=== PATIENT | female | born 1965 | race Caucasian/White ===

== ENCOUNTER 2022-01-09 08:39 | Outpatient (REF) | payer OTHER, MEDICARE, SELFPAY ==
--- NOTE | 2022-01-09 08:50 | ECG_ITS ---
Test Reason : R/O CONDUCTION DELAY Blood Pressure : / mmHG Vent. Rate : 085 BPM Atrial Rate : 085 BPM P-R Int : 166 ms QRS Dur : 080 ms QT Int : 382 ms P-R-T Axes : 034 007 042 degrees QTc Int : 454 ms Normal sinus rhythm Nonspecific ST and T wave abnormality Abnormal ECG When compared with ECG of 31-MAY-2019 10:22, Nonspecific T wave abnormality, worse in Anterior leads Referred By: Andre Burk Electronically Signed By:VICKY COBIAN MD
[2022-01-09 09:07] LABS: MANUAL DIFF FLAG NO
[2022-01-09 09:31] LABS: Basophils Absolute Auto 0.1 X10*3/uL (0.0-0.2); Basophils Percent Auto 0.9 % (0-2); Eosinophils Absolute Auto 0.4 X10*3/uL (0.0-0.4); Eosinophils Percent Auto 3.2 % (0-4); Hematocrit 41.5 % (37.0-47.0); Imm Gran Abs Auto 0.14 X10*3/uL (0.00-0.03); Imm Gran Pct Auto 1.3 % (0.0-0.4); Lymphocytes Absolute Auto 3.8 X10*3/uL (1.2-4.9); Lymphocytes Percent Auto 33.8 % (20-40); Mean Corpuscular HGB Conc 33.7 g/dl (31.0-35.0); Mean Corpuscular Hemoglobin 31.1 pg (27.0-33.0); Mean Corpuscular Volume 92.2 fL (80.0-98.0); Mean Platelet Volume 10.7 fL (9.4-12.3); Monocytes Absolute Auto 0.8 X10*3/uL (0.1-1.2); Monocytes Percent Auto 7.4 % (2-11); Neutrophils Absolute Auto 5.9 x10*3/uL (2.0-8.3); Neutrophils Percent Auto 53.4 % (45-73); Platelet Count 295 X10*3/uL (160-400); Red Cell Distribution Width 12.9 % (11.0-16.0); White Blood Count 11.1 X10*3/uL (4.8-10.8)
[2022-01-09 09:38] LABS: Estimated Average Glucose 108 mg/dL; Hemoglobin A1c % 5.4 %
[2022-01-09 10:11] LABS: Alanine Aminotransferase 47 U/L (0-31); Alkaline Phosphatase 91 U/L (39-117); Anion Gap 12 (12-20); Aspartate Amino Transferase 34 U/L (5-31); Bilirubin Total 0.3 mg/dL (0.0-1.0); Blood Urea Nitrogen 15 mg/dL (9-16); Calcium 9.3 mg/dL (8.4-10.2); Carbon Dioxide 24 mmol/L (22-29); Chloride 108 mmol/L (96-108); Estimated Glomerular Filt Rate 51; Glucose Random 117 mg/dL (60-115); Potassium 3.8 mmol/L (3.3-5.1); Sodium 140 mmol/L (135-145); Total Protein 7.6 g/dL (6.5-8.0)
[2022-01-09 12:19] LABS: Ammonia 45 umol/L (13-55)
[2022-01-09 13:15] LABS: Appearance Urine CLEAR; Color Urine YELLOW; Glucose Urine UA NEG (NEG); Leukocyte Esterase Urine TRACE (NEG); Nitrite Urine NEG (NEG); Specific Gravity - Urine <= 1.005 (1.005-1.025); Urine Blood NEG (NEG); Urine Ketones NEG (NEG); Urine Protein NEG (NEG-TRACE)
[2022-01-09 13:29] LABS: Bacteria Urine 2+ /LPF; RBC Urine 0 /HPF (0); Squamous Epithelial Cell Urine 2+ /LPF
[2022-01-14 04:29] LABS: Topiramate 16.7 mcg/mL (see note)
[2022-01-14 17:06] LABS: Clozapine (Clozaril) 611 mcg/L; Norclozapine 232 mcg/L (25-400)
== END 2022-01-09 08:40 | disposition home or self-care (01) ==
LOC: HO.LAB 08:39
PROVIDERS: Visit Provider Psychiatry & Neurology Psychiatry
DX: F31.81 Bipolar II disorder (principal); Z79.899 Other long term (current) drug therapy
CPT/HCPCS: 36415; 80053; 80159; 80201; 81001; 81003; 82140; 83036; 85025; 93005

== ENCOUNTER → 2022-08-11 16:37 | Outpatient (BNVA) | payer OTHER, MEDICARE, SELFPAY | PROVIDERS: PCP Pediatrics Adolescent Medicine; Visit Provider Psychiatry & Neurology Psychiatry | DX: Z13.89 Encounter for screening for other disorder (principal) ==

== ENCOUNTER → 2022-09-09 16:29 | Outpatient (BNVA) | payer OTHER, MEDICARE, SELFPAY | PROVIDERS: PCP Pediatrics Adolescent Medicine; Visit Provider Psychiatry & Neurology Psychiatry | DX: Z13.89 Encounter for screening for other disorder (principal) ==

== ENCOUNTER → 2022-10-28 16:09 | Outpatient (BNVA) | payer OTHER, MEDICARE, SELFPAY | PROVIDERS: PCP Pediatrics Adolescent Medicine; Visit Provider Psychiatry & Neurology Psychiatry | DX: Z13.89 Encounter for screening for other disorder (principal) ==

== ENCOUNTER → 2022-11-06 15:45 | Outpatient (BNVA) | payer OTHER, MEDICARE, SELFPAY | PROVIDERS: PCP Pediatrics Adolescent Medicine; Visit Provider Psychiatry & Neurology Psychiatry | DX: Z13.89 Encounter for screening for other disorder (principal) ==

== ENCOUNTER → 2022-12-08 16:05 | Outpatient (BNVA) | payer OTHER, MEDICARE, SELFPAY | PROVIDERS: PCP Internal Medicine; Visit Provider Psychiatry & Neurology Psychiatry ==

== ENCOUNTER 2023-01-14 16:35 | Outpatient (AMB) | payer OTHER, MEDICARE, SELFPAY ==
--- NOTE | 2023-01-14 16:18 | MHC.OFFVISPS ---
Intake Intake Visit Reasons: depression Allergies thioridazine [From MELLARIL] Allergy (Unknown, Unverified 04/04/20 16:32) UNKNOWN Medication List - Last Reconciled 01/14/23 by Andre Burk MD aripiprazole 10 mg PO BEDTIME clonazepam 1 mg PO TID clozapine orally 1 am 1 aft 2 bedtime; levothyroxine 50 mcg PO DAILY lorazepam 2 mg PO DAILY PRN metformin ER 500 mg PO QPM omeprazole 20 mg PO DAILY propranolol ER 60 mg PO DAILY quetiapine 100 mg PO DAILY PRN sertraline 75 mg (1.5 x 50 mg) PO DAILY 30 days topiramate (Topamax) One tab in the morning 2 tablets at bedtime 30 days HPI- Psychiatric Chief Complaint: depression HPI Narrative: For patient has been feeling somewhat lethargic fatigue depressed anxious and ruminating. Has not been feeling well somewhat lethargic no longer having any manic or if jayme decrease in psychotic symptoms patient continues on Clozaril Abilify sertraline Topamax Has not always been taking meds reliably tense though is be worried about the children and grandchildren Past Psychiatric History: See past dictations patient has the history of schizoaffective disorder PTSD with dissociation OCD and was markedly unstable with hospitalizations for many years her life. History of alcohol dependence in remission. Use to see Dr. Celaya. No past patient had been on high-dose fluoxetine which helped with patient significant OCD symptoms but had multiple episodes of severe kamala and past self-harming behavior Mental Status Exam Mental Status Exam Patient Appearance: Appropriate Patient Orientation: Person, Place, Time and Situation Level of Consciousness: Awake and Appropriate Patient Behavior: Appropriate Mood Description: Anxious and Blunted Affect Description: Appropriate and Constricted Patient Cognition Impaired: No Ability to Follow Directions: Good Speech Pattern: Clear Memory Description: Intact and Episodic Impaired (some impairment ? dissociation) Hallucinations: None Delusions: Not Present Thought Process: Intact and Goal Oriented Thought Content: positive for Goal Oriented, positive for Preoccupation, negative for Suicidal Ideation or negative for Homicidal Ideation Depressive Symptoms: Increased Anxiety, Increased Fatigue, Loss of Energy and Difficulty Concentrating Abnormal Motor Activity Signs and Symptoms: Psychomotor Retardation Judgement: Fair Judgement and Insight: improved mood less dissociation better concentration agreeable to taking meds more Assessment and Plan Assessment & Plan (1) Complex posttraumatic stress disorder: Status: Acute Code(s): F43.10 - Post-traumatic stress disorder, unspecified (2) OCD (obsessive compulsive disorder): Status: Acute Code(s): F42.9 - Obsessive-compulsive disorder, unspecified (3) Bipolar 1 disorder, mixed, partial remission: Status: Acute Code(s): F31.77 - Bipolar disorder, in partial remission, most recent episode mixed (4) ALONZO (obstructive sleep apnea): Status: Acute Code(s): G47.33 - Obstructive sleep apnea (adult) (pediatric) Plan Patient is somewhat sedated and lethargic obsessional rumination for obsessional anxiety increase sertraline to 75 mg monitor for kamala mood cycling Lower Topamax 100 mg the morning 200 mg at bedtime Medications: Changed From sertraline 100 mg PO DAILY 30 tabs 2RF To sertraline 75 mg (1.5 x 50 mg) PO DAILY 45 tabs 2RF 30 days From topiramate 200 mg (2 x 100 mg) PO BID 30 days 120 tabs 3RF To topiramate (Topamax) One tab in the morning 2 tablets at bedtime 90 tabs 3RF 30 days Counseling and coordination of Care Pt. Self Management counseling: Sleep hygiene Medication management counseling: Effectiveness and Side effects Diagnosis and Prognosis Counseling: Adequacy of current interventions Details: I spent [37] minutes reviewing the record, seeing the patient and documenting in the medical record. Counseling provided to the patient/caregiver as outlined below. Addressed patient/caregiver concerns regarding current medication regime including effective adherence. Addressed patient/caregiver concerns regarding diagnosis and prognosis including accuracy of diagnosis, prognosis over time, impact of diagnosis. Addressed patient/caregiver concerns regarding impact of recent stressors. 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
== END 2023-01-14 17:01 | disposition home or self-care (01) ==
LOC: HO.HOP 16:35
PROVIDERS: PCP Internal Medicine; Visit Provider Psychiatry & Neurology Psychiatry
DX: F43.10 Post-traumatic stress disorder, unspecified (principal); F42.9 Obsessive-compulsive disorder, unspecified; F31.77 Bipolar disorder, in partial remission, most recent episode mixed; G47.33 Obstructive sleep apnea (adult) (pediatric)
CPT/HCPCS: 90833; 99213

== ENCOUNTER → 2023-01-14 16:35 | Outpatient (BNVA) | payer OTHER, MEDICARE, SELFPAY | PROVIDERS: PCP Internal Medicine; Visit Provider Psychiatry & Neurology Psychiatry ==

== ENCOUNTER 2023-02-17 16:05 | Outpatient (AMB) | payer OTHER, MEDICARE, SELFPAY ==
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
== END 2023-02-17 16:11 | disposition home or self-care (01) ==
LOC: HO.HOP 16:05
PROVIDERS: PCP Internal Medicine; Visit Provider Psychiatry & Neurology Psychiatry
DX: K76.0 Fatty (change of) liver, not elsewhere classified (principal); R41.3 Other amnesia; F43.10 Post-traumatic stress disorder, unspecified; F42.9 Obsessive-compulsive disorder, unspecified; F31.77 Bipolar disorder, in partial remission, most recent episode mixed; G47.33 Obstructive sleep apnea (adult) (pediatric)
CPT/HCPCS: 90833; 99213

== ENCOUNTER → 2023-02-17 16:05 | Outpatient (BNVA) | payer OTHER, MEDICARE, SELFPAY | PROVIDERS: PCP Internal Medicine; Visit Provider Psychiatry & Neurology Psychiatry ==

== ENCOUNTER 2023-03-31 16:35 | Outpatient (AMB) | payer OTHER, MEDICARE, SELFPAY ==
--- NOTE | 2023-03-31 17:24 | MHC.OFFVISPS ---
Intake Intake Visit Reasons: depression Allergies thioridazine [From MELLARIL] Allergy (Unknown, Unverified 04/04/20 16:32) UNKNOWN HPI- Psychiatric Chief Complaint: depression HPI Narrative: Patient seen psychiatric follow-up with her . The patient's mood has generally been not overtly manic not psychotic but much anxiety with free current rumination regarding grandchildren obsessional thoughts of their safety and what might have gone wrong during the day. In patient along with a friend provide daily care for grandchildren she has been going out more. Her children frequently call her regarding problems and anxiety they have. This provides a a frequent pressure for her. There has been also short-term memory disturbance Topamax has been gradually decreased to 200 mg no clear improvement and perhaps some increase in anxiety. Sertraline was not increased to 75 mg up until a few days ago we have discussed risks of increasing sertraline regarding cycling and paranoia versus uncontrolled obsessional anxiety she has not had any manic symptoms she has not had significant paranoia or hallucinations Past Psychiatric History: See past dictations patient has the history of schizoaffective disorder PTSD with dissociation OCD and was markedly unstable with hospitalizations for many years her life. History of alcohol dependence in remission. Use to see Dr. Celaya. No past patient had been on high-dose fluoxetine which helped with patient significant OCD symptoms but had multiple episodes of severe kamala and past self-harming behavior Mental Status Exam Mental Status Exam Patient Appearance: Appropriate Patient Orientation: Person, Place, Time and Situation Level of Consciousness: Awake and Appropriate Patient Behavior: Appropriate Mood Description: Anxious and Blunted Affect Description: Appropriate and Constricted Patient Cognition Impaired: No Ability to Follow Directions: Good Speech Pattern: Clear Memory Description: Episodic Impaired (some impairment ? dissociation) Hallucinations: None Delusions: Not Present Thought Process: Intact and Goal Oriented Thought Content: positive for Goal Oriented, positive for Preoccupation, negative for Suicidal Ideation or negative for Homicidal Ideation Depressive Symptoms: Increased Anxiety, Increased Fatigue, Loss of Energy and Difficulty Concentrating Abnormal Motor Activity Signs and Symptoms: Psychomotor Retardation Judgement: Fair Judgement and Insight: i Assessment and Plan Assessment & Plan (1) Complex posttraumatic stress disorder: Status: Acute Code(s): F43.10 - Post-traumatic stress disorder, unspecified (2) OCD (obsessive compulsive disorder): Status: Acute Code(s): F42.9 - Obsessive-compulsive disorder, unspecified (3) Bipolar 1 disorder, mixed, partial remission: Status: Acute Code(s): F31.77 - Bipolar disorder, in partial remission, most recent episode mixed (4) ALONZO (obstructive sleep apnea): Status: Acute Code(s): G47.33 - Obstructive sleep apnea (adult) (pediatric) Plan mproved mood less dissociation better concentration agreeable to taking sertraline 75 mg daily monitor for improvement in anxiety and OCD monitor for worsening paranoia and cycling patient call in 3 weeks follow-up appointment 4 weeks patient agree with this plan Medications: Changed From topiramate (Topamax) One tab in the morning 2 tablets at bedtime 30 days 90 tabs 3RF To topiramate (Topamax) 1 tab 3 pm 1 tab bedtime 30 days 60 tabs 3RF Counseling and coordination of Care Details-Self Mgmt counseling: Issues related to managing boundaries with children and grandchildren managing anxiety and confronting agoraphobia fears Medication management counseling: Effectiveness, Side effects and Dosing range Diagnosis and Prognosis Counseling: Impact of diagnosis on life functions, Impact of family relationship and Adequacy of current interventions Details: I spent [45] minutes reviewing the record, seeing the patient and documenting in the medical record. Counseling provided to the patient/caregiver as outlined below. Addressed patient/caregiver concerns regarding current medication regime including effective adherence. Addressed patient/caregiver concerns regarding diagnosis and prognosis including accuracy of diagnosis, prognosis over time, impact of diagnosis. Addressed patient/caregiver concerns regarding impact of recent stressors. 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
== END 2023-03-31 17:19 | disposition home or self-care (01) ==
LOC: HO.HOP 16:35
PROVIDERS: PCP Internal Medicine; Visit Provider Psychiatry & Neurology Psychiatry
DX: F43.10 Post-traumatic stress disorder, unspecified (principal); F42.9 Obsessive-compulsive disorder, unspecified; F31.77 Bipolar disorder, in partial remission, most recent episode mixed; G47.33 Obstructive sleep apnea (adult) (pediatric)
CPT/HCPCS: 90833; 99213

== ENCOUNTER → 2023-03-31 16:35 | Outpatient (BNVA) | payer OTHER, MEDICARE, SELFPAY | PROVIDERS: PCP Internal Medicine; Visit Provider Psychiatry & Neurology Psychiatry ==

== ENCOUNTER 2023-05-06 16:04 | Outpatient (AMB) | payer OTHER, MEDICARE, SELFPAY ==
--- NOTE | 2023-05-06 17:04 | MHC.OFFVISPS ---
Intake Intake Visit Reasons: depression Allergies thioridazine [From MELLARIL] Allergy (Unknown, Unverified 04/04/20 16:32) UNKNOWN Medication List - Last Reconciled 06/17/23 by Andre Burk MD aripiprazole 10 mg PO BEDTIME clonazepam 1 mg PO TID clozapine orally 1 am 1 aft 2 bedtime; levothyroxine 50 mcg PO DAILY lorazepam 2 mg PO DAILY PRN metformin ER 500 mg PO QPM omeprazole 20 mg PO DAILY propranolol ER 60 mg PO DAILY quetiapine 100 mg PO DAILY PRN sertraline 75 mg (1.5 x 50 mg) PO DAILY 30 days topiramate (Topamax) 1 tab 3 pm 1 tab bedtime 30 days HPI- Psychiatric Chief Complaint: depression HPI Narrative: Patient seen psychiatric follow-up. She continues to function somewhat better had been chronically dissociated of fearful with intermittent intrusive hallucinations or babbling and her head as she said but this has generally markedly improved. She continues to be fearful at times with intrusive obsessional fears regarding her family and this is complicated by close relationship that she has with her kids and frequently seeing her grand children. She has lot of guilt regarding the past that she needs to deal with and with psychological difficulties might arise then her kids appear to be dealing with anxiety and mood difficulties although successful in world generally. She has been working to [place] her functioning inability to leave the house for example to go to a restaurant . Seem significantly better on sertraline this has not precipitated cycling patient had been to 80+ mg of fluoxetine in the past for OCD but this was accompanied by marked cycling Patient has been using her CPAP and has been taking her medications as prescribed Past Psychiatric History: See past dictations patient has the history of schizoaffective disorder PTSD with dissociation OCD and was markedly unstable with hospitalizations for many years her life. History of alcohol dependence in remission. Use to see Dr. Celaya. No past patient had been on high-dose fluoxetine which helped with patient significant OCD symptoms but had multiple episodes of severe kamala and past self-harming behavior Mental Status Exam Mental Status Exam Patient Appearance: Appropriate Patient Orientation: Person, Place, Time and Situation Level of Consciousness: Awake and Appropriate Patient Behavior: Appropriate Mood Description: Depressed, Anxious and Blunted Affect Description: Appropriate and Constricted Patient Cognition Impaired: No Ability to Follow Directions: Good Speech Pattern: Clear Memory Description: Episodic Impaired (some impairment ? dissociation) Hallucinations: None Delusions: Not Present Thought Process: Intact and Goal Oriented Thought Content: positive for Obsessional Thoughts, positive for Goal Oriented, positive for Perseveration, positive for Preoccupation, negative for Suicidal Ideation or negative for Homicidal Ideation Depressive Symptoms: Increased Anxiety, Increased Fatigue, Loss of Energy and Difficulty Concentrating Abnormal Motor Activity Signs and Symptoms: Psychomotor Retardation Judgement: Fair Judgement and Insight: PHQ-9 18 patient does have improved insight but dealing with give guilty issues related to her past when her kids were going up and the stress that maintaining close relationships have on her in relationship to fears that she gets denies any active self-harm she was able to drive to the Assessment and Plan Assessment & Plan (1) Complex posttraumatic stress disorder: Status: Acute Code(s): F43.10 - Post-traumatic stress disorder, unspecified (2) OCD (obsessive compulsive disorder): Status: Acute Code(s): F42.9 - Obsessive-compulsive disorder, unspecified (3) Bipolar 1 disorder, depressed: Status: Acute Code(s): F31.9 - Bipolar disorder, unspecified Plan Patient generally has shown significant improvement on the combination of Abilify clozapine the addition of sertraline has helped to some degree with obsessional anxiety and dysphoria. She is using CPAP. Does complain at times with difficulty with working attention could try and decrease clonazepam no binge drinking or other substance abuse her ANC has been unremarkable on clozapine no evidence of tardive dyskinesia on exam monitor for increase in cycling Counseling and coordination of Care Pt. Self Management counseling: Cognitive restructuring Details-Self Mgmt counseling: She was related to grief which she and family may have lost past when she was ill acceptance courage ability to recognize her gains Diagnosis and Prognosis Counseling: Impact of diagnosis on life functions, Impact of family relationship, Problematic behaviors secondary to diagnosis and Adequacy of current interventions Details: I spent [38] minutes reviewing the record, seeing the patient and documenting in the medical record. Counseling provided to the patient/caregiver as outlined below. Addressed patient/caregiver concerns regarding current medication regime including effective adherence. Addressed patient/caregiver concerns regarding diagnosis and prognosis including accuracy of diagnosis, prognosis over time, impact of diagnosis. Addressed patient/caregiver concerns regarding impact of recent stressors. 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
== END 2023-05-06 16:52 | disposition home or self-care (01) ==
LOC: HO.HOP 16:04
PROVIDERS: PCP Internal Medicine; Visit Provider Psychiatry & Neurology Psychiatry
DX: F43.10 Post-traumatic stress disorder, unspecified (principal); F42.9 Obsessive-compulsive disorder, unspecified; F31.9 Bipolar disorder, unspecified
CPT/HCPCS: 90833; 99213

== ENCOUNTER → 2023-05-06 16:04 | Outpatient (BNVA) | payer OTHER, MEDICARE, SELFPAY | PROVIDERS: PCP Internal Medicine; Visit Provider Psychiatry & Neurology Psychiatry ==

== ENCOUNTER 2023-06-17 15:53 | Outpatient (AMB) | payer OTHER, MEDICARE, SELFPAY ==
--- NOTE | 2023-06-17 16:12 | A.OFFPSYCH_ITS ---
Intake Intake Visit Reasons: depression Allergies thioridazine [From MELLARIL] Allergy (Unknown, Unverified 04/04/20 16:32) UNKNOWN HPI- Psychiatric Chief Complaint: depression HPI Narrative: Pt seen in psych f/u dealing with increased stress at home her [id number] [facility] post surgery also needing dialysis presently putting a lot of pressure on her Past Psychiatric History: See past dictations patient has the history of schizoaffective disorder PTSD with dissociation OCD and was markedly unstable with hospitalizations for many years her life. History of alcohol dependence in remission. Use to see Dr. Celaya. No past patient had been on high-dose fluoxetine which helped with patient significant OCD symptoms but had multiple episodes of severe kamala and past self-harming behavior Subjective Subjective Subjective Medication Compliance: Yes Mental Status Exam Mental Status Exam Patient Appearance: Appropriate Patient Orientation: Person, Place, Time and Situation Level of Consciousness: Awake and Appropriate Patient Behavior: Appropriate Mood Description: Depressed, Anxious and Blunted Affect Description: Appropriate and Constricted Patient Cognition Impaired: No Ability to Follow Directions: Good Speech Pattern: Clear Memory Description: Episodic Impaired (some impairment ? dissociation) Hallucinations: None Delusions: Not Present Thought Process: Intact and Goal Oriented Thought Content: positive for Obsessional Thoughts, positive for Goal Oriented, positive for Perseveration, positive for Preoccupation, negative for Suicidal Ideation or negative for Homicidal Ideation Depressive Symptoms: Increased Anxiety, Increased Fatigue, Loss of Energy and Difficulty Concentrating Abnormal Motor Activity Signs and Symptoms: Psychomotor Retardation Judgement: Fair Judgement and Insight: PHQ-9 18 patient does have improved insight but dealing with give guilty issues related to her past when her kids were going up and the stress that maintaining close relationships have on her in relationship to fears that she gets denies any active self-harm she was able to drive to the Assessment and Plan Assessment & Plan (1) Bipolar 1 disorder, depressed: Status: Acute Code(s): F31.9 - Bipolar disorder, unspecified (2) OCD (obsessive compulsive disorder): Status: Acute Code(s): F42.9 - Obsessive-compulsive disorder, unspecified Plan Continue sertraline and Abilify. Patient has been talking about her working attention short-term memory at times. Discussed trying very gradually to taper down on clonazepam perhaps by 0.5 mg as tolerated a month from the current 3 mg dose patient generally doing better since being on sertraline monitor for kamala worsening cycling or psychosis patient has generally done better on clozapine white count has been stable no oral facial dyskinesia were other evidence of tardive dyskinesia noted Medications: Changed From omeprazole 20 mg PO DAILY To omeprazole further refills from pcp 20 mg PO DAILY 30 caps 1RF Refilled sertraline 75 mg (1.5 x 50 mg) PO DAILY 45 tabs 2RF 30 days aripiprazole 10 mg PO BEDTIME 90 tabs 1RF Counseling and coordination of Care Details: I spent [] minutes reviewing the record, seeing the patient and documenting in the medical record. Counseling provided to the patient/caregiver as outlined below. Addressed patient/caregiver concerns regarding current medication regime including effective adherence. Addressed patient/caregiver concerns regarding diagnosis and prognosis including accuracy of diagnosis, prognosis over time, impact of diagnosis. Addressed patient/caregiver concerns regarding impact of recent stressors. 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
== END 2023-06-17 15:54 | disposition home or self-care (01) ==
LOC: HO.HOP 15:53
PROVIDERS: PCP Internal Medicine; Visit Provider Psychiatry & Neurology Psychiatry
DX: F31.9 Bipolar disorder, unspecified (principal); F42.9 Obsessive-compulsive disorder, unspecified
CPT/HCPCS: 90833; 99213

== ENCOUNTER → 2023-06-17 15:53 | Outpatient (BNVA) | payer OTHER, MEDICARE, SELFPAY | PROVIDERS: PCP Internal Medicine; Visit Provider Psychiatry & Neurology Psychiatry ==

== ENCOUNTER 2023-08-03 16:37 | Outpatient (AMB) | payer OTHER, MEDICARE, SELFPAY ==
--- NOTE | 2023-08-03 16:22 | A.OFFPSYCH_ITS ---
Intake Intake Visit Reasons: depression Allergies thioridazine [From [facility]AR[facility]] Allergy (Unknown, Unverified 04/04/20 16:32) UNKNOWN Medication List - Last Reconciled 08/03/23 by Andre Burk MD aripiprazole 10 mg PO BEDTIME clonazepam 1 mg PO BID clozapine orally 1 am 1 aft 2 bedtime; levothyroxine 50 mcg PO DAILY lorazepam 2 mg PO DAILY PRN metformin ER 500 mg PO QPM omeprazole 20 mg PO DAILY propranolol ER 60 mg PO DAILY sertraline 75 mg (1.5 x 50 mg) PO DAILY 30 days topiramate (Topamax) 1 tab 3 pm 1 tab bedtime 30 days HPI- Psychiatric Chief Complaint: depression HPI Narrative: Pt has been doing ok had difficlty when m in law had home hospice had difficulty when family was sad trying to work on neg cognitions has felt more stable obsessional anxiety in better control no manic episodes has been better able to reflect on things has been able to taper down on clonazepam. [employer] has been short-term memory working attention patient has been were consistent with CPAP Past Psychiatric History: See past dictations patient has the history of schizoaffective disorder PTSD with dissociation OCD and was markedly unstable with hospitalizations for many years her life. History of alcohol dependence in remission. Use to see Dr. Celaya. No past patient had been on high-dose fluoxetine which helped with patient significant OCD symptoms but had multiple episodes of severe kamala and past self-harming behavior Mental Status Exam Mental Status Exam Patient Appearance: Appropriate Patient Orientation: Person, Place, Time and Situation Level of Consciousness: Awake and Appropriate Patient Behavior: Appropriate Mood Description: Anxious and Blunted Affect Description: Appropriate and Constricted Patient Cognition Impaired: No Ability to Follow Directions: Good Speech Pattern: Clear Memory Description: Episodic Impaired (some impairment ? dissociation) Hallucinations: None Delusions: Not Present Thought Process: Intact and Goal Oriented Thought Content: positive for Obsessional Thoughts, positive for Goal Oriented, positive for Perseveration, positive for Preoccupation, negative for Suicidal Ideation or negative for Homicidal Ideation Depressive Symptoms: Increased Anxiety, Increased Fatigue, Loss of Energy and Difficulty Concentrating Abnormal Motor Activity Signs and Symptoms: Psychomotor Retardation Judgement: Fair Judgement and Insight: Patient with improving judgment and insight no manic episodes Telehealth Telehealth Location of provider rendering services: practice address Location of patient: address on file Patient Identification confirmed using: Name, : Yes Telehealth method: video Patient verbally consented to treatment: Yes Patient verbally consented to billing insurance company: Yes Minutes spent on Phone/Video with Pt.: 22 Assessment and Plan Assessment & Plan (1) Bipolar 1 disorder, depressed: Status: Acute Code(s): F31.9 - Bipolar disorder, unspecified (2) Complex posttraumatic stress disorder: Status: Acute Code(s): F43.10 - Post-traumatic stress disorder, unspecified (3) OCD (obsessive compulsive disorder): Status: Acute Code(s): F42.9 - Obsessive-compulsive disorder, unspecified (4) Sialorrhea: Status: Acute Code(s): K11.7 - Disturbances of salivary secretion Plan pt has sialorrhea interfering with cpap discussed tx options . Otherwise patient has been trying to go out more do something with her once a week trying to better control her cognitions. Patient seems relatively stable on the combination of Abilify clozapine and sertraline. Obsessional thinking continues anxiety continues. Patient has been able to lower clonazepam to 1 mg twice a day from 3 times a day to this point no clear change in alertness cognitive status. Discussed need to restart CPAP need to get control of sialorrhea in order to do that glycopyrrolate 2 mg prescribed at bedtime can contribute to constipation could started a half tab at bedtime see how tolerated Medications: New glycopyrrolate 2 mg PO BEDTIME 30 tabs 2RF Changed From clonazepam 1 mg PO TID 90 tabs 2RF To clonazepam 1 mg PO BID Counseling and coordination of Care Details-Med Mgmt counseling: Discussed issues related to major side effect with sialorrhea can try glycopyrrolate clozapine has been highly effective with the patient Details: I spent [30] minutes reviewing the record, seeing the patient and documenting in the medical record. Counseling provided to the patient/caregiver as outlined below. Addressed patient/caregiver concerns regarding current medication regime including effective adherence. Addressed patient/caregiver concerns regarding diagnosis and prognosis including accuracy of diagnosis, prognosis over time, impact of diagnosis. Addressed patient/caregiver concerns regarding impact of recent stressors. 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
== END 2023-08-03 16:37 | disposition home or self-care (01) ==
LOC: HO.HOP 16:37
PROVIDERS: PCP Internal Medicine; Visit Provider Psychiatry & Neurology Psychiatry
DX: F31.9 Bipolar disorder, unspecified (principal); F43.10 Post-traumatic stress disorder, unspecified; F42.9 Obsessive-compulsive disorder, unspecified; K11.7 Disturbances of salivary secretion
CPT/HCPCS: 99214

== ENCOUNTER → 2023-08-03 16:37 | Outpatient (BNVA) | payer OTHER, MEDICARE, SELFPAY | PROVIDERS: PCP Internal Medicine; Visit Provider Psychiatry & Neurology Psychiatry ==

== ENCOUNTER 2023-09-29 14:32 | Outpatient (AMB) | payer OTHER, MEDICARE, SELFPAY ==
--- NOTE | 2023-09-29 14:39 | A.OFFVISCO_ITS ---
Intake Intake Visit Reasons: depression Allergies thioridazine [From [facility]LLAR[facility]] Allergy (Unknown, Unverified 04/04/20 16:32) UNKNOWN [facility] Medical History (Updated 09/06/23 @ 20:51 by Andre Burk MD) Bipolar 1 disorder, depressed Complex posttraumatic stress disorder OCD (obsessive compulsive disorder) Severe manic bipolar 1 disorder with psychotic behavior ALONZO (obstructive sleep apnea) Coding
--- NOTE | 2023-09-29 14:45 | MHC.OFFVISPS ---
Intake Intake Visit Reasons: depression Allergies thioridazine [From MELLAR[facility]] Allergy (Unknown, Unverified 04/04/20 16:32) UNKNOWN Medication List - Last Reconciled 09/29/23 by Andre Burk MD aripiprazole 10 mg PO BEDTIME clonazepam 1 mg PO BID clozapine orally 1 am 1 aft 2 bedtime; glycopyrrolate 2 mg PO BEDTIME levothyroxine 50 mcg PO DAILY lorazepam 2 mg PO DAILY PRN metformin ER 500 mg PO QPM omeprazole 20 mg PO DAILY propranolol ER 60 mg PO DAILY sertraline 75 mg (1.5 x 50 mg) PO DAILY 30 days topiramate (Topamax) 1 tab 3 pm 1 tab bedtime 30 days HPI- Psychiatric Chief Complaint: depression HPI Narrative: Pt on clozapine topamax klonopin with ativan for severe rescue abilify 10 mg sertraline. Has been having inc obsessional anxiety re children and grandchildren catastrophic thinking has had Past Psychiatric History: See past dictations patient has the history of schizoaffective disorder PTSD with dissociation OCD and was markedly unstable with hospitalizations for many years her life. History of alcohol dependence in remission. Use to see Dr. Celaya. No past patient had been on high-dose fluoxetine which helped with patient significant OCD symptoms but had multiple episodes of severe kamala and past self-harming behavior Assessment and Plan Assessment & Plan (1) Complex posttraumatic stress disorder: Status: Acute Code(s): F43.10 - Post-traumatic stress disorder, unspecified (2) OCD (obsessive compulsive disorder): Status: Acute Code(s): F42.9 - Obsessive-compulsive disorder, unspecified (3) Bipolar 1 disorder, depressed: Status: Acute Code(s): F31.9 - Bipolar disorder, unspecified (4) retirement current use of clozapine: Status: Acute Code(s): Z79.899 - Other middle or intermediate school principal (current) drug therapy Plan Pt has had inc anxiety most recently will inc klon to tid monitor response discussed can interfere with memory can change timeing of topamax cloz to help with anxiety encourage cpap watch for agitation with sertraline / cycling denies active si Medications: Changed From clonazepam 1 mg PO BID 60 tabs 3RF To clonazepam 1 mg PO TID 90 tabs 3RF Counseling and coordination of Care Details-Self Mgmt counseling: issues related to anxiety self esteem Medication management counseling: Effectiveness and Side effects Diagnosis and Prognosis Counseling: Impact of diagnosis on life functions and Adequacy of current interventions Details: I spent [] minutes reviewing the record, seeing the patient and documenting in the medical record. Counseling provided to the patient/caregiver as outlined below. Addressed patient/caregiver concerns regarding current medication regime including effective adherence. Addressed patient/caregiver concerns regarding diagnosis and prognosis including accuracy of diagnosis, prognosis over time, impact of diagnosis. Addressed patient/caregiver concerns regarding impact of recent stressors. 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
== END 2023-09-29 15:27 | disposition home or self-care (01) ==
LOC: HO.HOP 14:32
PROVIDERS: PCP Internal Medicine; Visit Provider Psychiatry & Neurology Psychiatry
DX: F43.10 Post-traumatic stress disorder, unspecified (principal); F42.9 Obsessive-compulsive disorder, unspecified; F31.9 Bipolar disorder, unspecified; Z79.899 Other long term (current) drug therapy
CPT/HCPCS: 99499

== ENCOUNTER → 2023-09-29 14:32 | Outpatient (BNVA) | payer OTHER, MEDICARE, SELFPAY | PROVIDERS: PCP Internal Medicine; Visit Provider Psychiatry & Neurology Psychiatry ==

== ENCOUNTER 2023-10-27 14:32 | Outpatient (AMB) | payer OTHER, MEDICARE, SELFPAY ==
--- NOTE | 2023-10-27 15:38 | A.OFFPSYCH_ITS ---
Intake Intake Visit Reasons: depression Allergies thioridazine [From MELLARIL] Allergy (Unknown, Unverified 04/04/20 16:32) UNKNOWN HPI- Psychiatric Chief Complaint: depression HPI Narrative: Patient seen psychiatric follow-up the patient's mood has improved there is less children chatter in her brain less paranoia less thought disorganization. She is doing better on a lower dose of sertraline and increase dose of clozapine. She has not yet using her CPAP has had difficulty since the original Basilio model was recalled. Her daughter in [facility] is now and will be gettin g no gross kamala does look forward to break when she has not responsible for taking care of the grandchildren on such a regular basis Past Psychiatric History: See past dictations patient has the history of schizoaffective disorder PTSD with dissociation OCD and was markedly unstable with hospitalizations for many years her life. History of alcohol dependence in remission. Use to see Dr. Celaya. No past patient had been on high-dose fluoxetine which helped with patient significant OCD symptoms but had multiple episodes of severe kamala and past self-harming behavior Mental Status Exam Mental Status Exam Patient Appearance: Appropriate Patient Orientation: Person, Place, Time and Situation Level of Consciousness: Awake and Appropriate Patient Behavior: Appropriate Behavior Comments: calm appropriate Mood Description: Calm and Appropriate Affect Description: Appropriate Patient Cognition Impaired: No Ability to Follow Directions: Good Speech Pattern: Clear Memory Description: Episodic Impaired (some impairment ? dissociation) Hallucinations: None Delusions: Not Present Thought Process: Intact and Goal Oriented Thought Content: positive for Goal Oriented, positive for Perseveration, negative for Suicidal Ideation or negative for Homicidal Ideation Depressive Symptoms: Increased Anxiety Judgement: Good Judgement and Insight: Patient with improving judgment and insight no manic episodes improved mood inc range affect Results Reviewed Results Reviewed: anc stable wnl Assessment and Plan Assessment & Plan (1) Bipolar 1 disorder, depressed: Status: Acute Code(s): F31.9 - Bipolar disorder, unspecified (2) OCD (obsessive compulsive disorder): Status: Acute Code(s): F42.9 - Obsessive-compulsive disorder, unspecified (3) [facility] current use of clozapine: Status: Acute Code(s): Z79.899 - Other termite technician (current) drug therapy (4) Sialorrhea: Status: Acute Code(s): K11.7 - Disturbances of salivary secretion (5) Complex posttraumatic stress disorder: Status: Acute Code(s): F43.10 - Post-traumatic stress disorder, unspecified Plan pt doing better on dec sertraline inc clozapine tends to have daytime late day anxiety anc stable tolerating clozapine no observed TD on exam pt has some despair at times regarding the time lost when she has been ill she has however maintain connection with her family over time clonazepam has tapered down to 1 mg twice a day generally except when periods of increased anxiety she does also have an Ativan p.r.n. for escape Counseling and coordination of Care Pt. Self Management counseling: Breathing, Behavior activation and Greif counseling Details-Self Mgmt counseling: Issues related to self-esteem and feelings despair over time lost and need to be able to clearly set boundaries and limits with her family which she can and can not do and limits that her anxiety and agoraphobia symptoms can sometimes contribute to her difficulty leaving the house and functioning grief regarding time loss Medication management counseling: Effectiveness, Side effects and Dosing range Diagnosis and Prognosis Counseling: Accuracy of diagnosis, Prognosis over time, Problematic behaviors secondary to diagnosis and Adequacy of current interventions Details: I spent [38] minutes reviewing the record, seeing the patient and documenting in the medical record. Counseling provided to the patient/caregiver as outlined below. Addressed patient/caregiver concerns regarding current medication regime including effective adherence. Addressed patient/caregiver concerns regarding diagnosis and prognosis including accuracy of diagnosis, prognosis over time, impact of diagnosis. Addressed patient/caregiver concerns regarding impact of recent stressors. 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
== END 2023-10-27 15:09 | disposition home or self-care (01) ==
LOC: HO.HOP 14:32
PROVIDERS: PCP Internal Medicine; Visit Provider Psychiatry & Neurology Psychiatry
DX: F31.9 Bipolar disorder, unspecified (principal); F42.9 Obsessive-compulsive disorder, unspecified; Z79.899 Other long term (current) drug therapy; K11.7 Disturbances of salivary secretion; F43.10 Post-traumatic stress disorder, unspecified
CPT/HCPCS: 90833; 99213

== ENCOUNTER → 2023-10-27 14:32 | Outpatient (BNVA) | payer OTHER, MEDICARE, SELFPAY | PROVIDERS: PCP Internal Medicine; Visit Provider Psychiatry & Neurology Psychiatry ==

== ENCOUNTER 2023-11-24 14:36 | Outpatient (AMB) | payer OTHER, MEDICARE, SELFPAY ==
--- NOTE | 2023-11-24 15:51 | A.OFFPSYCH_ITS ---
Intake Intake Visit Reasons: depression Allergies thioridazine [From MELLARIL] Allergy (Unknown, Unverified 04/04/20 16:32) UNKNOWN HPI- Psychiatric Chief Complaint: depression HPI Narrative: Patient seen psychiatric follow-up patient's mood has been anxious ruminating and obsessional. Anxiety level has been quite high. She does frequently ruminating about safety of her grandchildren and whether they are being appropriately care of. She also feels at times she is being pushed to do too much has a longstanding history of agoraphobia dissociation and paranoia when outside too much this has generally been better over the past year or more Unclear if more mixed states has had more paranoid should her chatter she is more distractible difficulty with memory ANC has generally been stable has tolerated clozapine augmentation with Abilify Past Psychiatric History: See past dictations patient has the history of schizoaffective disorder PTSD with dissociation OCD and was markedly unstable with hospitalizations for many years her life. History of alcohol dependence in remission. Use to see Dr. Celaya. No past patient had been on high-dose fluoxetine which helped with patient significant OCD symptoms but had multiple episodes of severe kamala and past self-harming behavior Mental Status Exam Mental Status Exam Patient Appearance: Well Grooomed and Appropriate Patient Orientation: Person, Place and Situation Level of Consciousness: Awake and Restless Patient Behavior: Appropriate and Distractible Behavior Comments: calm appropriate Mood Description: Fearful and Apprehensive Affect Description: Fearful, Anxious and Labile Patient Cognition Impaired: No Ability to Follow Directions: Good Speech Pattern: Clear Memory Description: Episodic Impaired (some impairment ? dissociation) Delusions: Not Present Thought Process: Intact and Goal Oriented Thought Content: positive for Circumstantial, positive for Goal Oriented, positive for Suicidal Ideation (Denies active SI or plan but catastrophic thinking at times) and negative for Homicidal Ideation Depressive Symptoms: Increased Anxiety, Hopelessness and Isolating- Friends/Family Judgement: Fair Judgement and Insight: Increased distress and anxiety and rumination asking for help Assessment and Plan Assessment & Plan (1) Bipolar 1 disorder, depressed: Status: Acute Code(s): F31.9 - Bipolar disorder, unspecified (2) Elevated liver function tests: Status: Acute Code(s): R79.89 - Other specified abnormal findings of blood chemistry (3) Complex posttraumatic stress disorder: Status: Acute Code(s): F43.10 - Post-traumatic stress disorder, unspecified (4) OCD (obsessive compulsive disorder): Status: Acute Code(s): F42.9 - Obsessive-compulsive disorder, unspecified (5) ALONZO (obstructive sleep apnea): Status: Acute Code(s): G47.33 - Obstructive sleep apnea (adult) (pediatric) Plan Patient has had an increase in LFTs after some routine blood work mood discuss trying to lower the clozapine 1 tab in the morning 1 tab in the afternoon 1-2 at bedtime sertraline 50 mg had actually recently been taking 25 mg seems more depressed and obsessional anxious check hepatitis screen check ammonia level repeat LFTs copies sent to Dr. Cunningham Has not done well on 25 mg of sertraline increased back to 50 mg lower clozapine seems worse with increase more confused may also relate to increased liver function tests. Above reviewed with patient and her Medications: Changed From sertraline 75 mg (1.5 x 50 mg) PO DAILY 30 days 45 tabs 2RF To sertraline 50 mg PO DAILY 30 tabs 2RF 30 days From clozapine orally 1 am 1 /2aft 2 bedtime; 60 tabs 10RF To clozapine orally 1 am 1 aft 1 07/20 bedtime; 60 tabs 10RF Orders: Orders Hepatitis A,B,C Profile 11/24/23 R79.89 - Other specified abnormal findings of blood chemistry Ammonia 11/24/23 R79.89 - Other specified abnormal findings of blood chemistry Liver Panel 11/24/23 R79.89 - Other specified abnormal findings of blood chemistry Counseling and coordination of Care Details: I spent [] minutes reviewing the record, seeing the patient and documenting in the medical record. Counseling provided to the patient/caregiver as outlined below. Addressed patient/caregiver concerns regarding current medication regime including effective adherence. Addressed patient/caregiver concerns regarding diagnosis and prognosis including accuracy of diagnosis, prognosis over time, impact of diagnosis. Addressed patient/caregiver concerns regarding impact of recent stressors. 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
== END 2023-11-24 15:44 | disposition home or self-care (01) ==
LOC: HO.HOP 14:36
PROVIDERS: PCP Internal Medicine; Visit Provider Psychiatry & Neurology Psychiatry
DX: F31.9 Bipolar disorder, unspecified (principal); R79.89 Other specified abnormal findings of blood chemistry; F43.10 Post-traumatic stress disorder, unspecified; F42.9 Obsessive-compulsive disorder, unspecified; G47.33 Obstructive sleep apnea (adult) (pediatric)
CPT/HCPCS: 99214

== ENCOUNTER 2023-11-24 14:36 | Outpatient (REF) | payer OTHER, MEDICARE, SELFPAY ==
[2023-11-24 15:50] LABS: MANUAL DIFF FLAG NO
[2023-11-24 16:05] LABS: Ammonia 28 umol/L (13-55)
[2023-11-24 18:55] LABS: Basophils Absolute Auto 0.1 X10*3/uL (0.0-0.2); Basophils Percent Auto 1.3 % (0-2); Eosinophils Absolute Auto 0.4 X10*3/uL (0.0-0.4); Eosinophils Percent Auto 3.5 % (0-4); Hematocrit 44.4 % (37.0-47.0); Hemoglobin 15.1 g/dl (12.0-16.0); Imm Gran Abs Auto 0.03 X10*3/uL (0.00-0.03); Imm Gran Pct Auto 0.3 % (0.0-0.4); Lymphocytes Absolute Auto 4.1 X10*3/uL (1.2-4.9); Lymphocytes Percent Auto 40.8 % (20-40); Mean Corpuscular Hemoglobin 30.9 pg (27.0-33.0); Mean Platelet Volume 12.7 fL (9.4-12.3); Monocytes Absolute Auto 0.9 X10*3/uL (0.1-1.2); Monocytes Percent Auto 9.3 % (2-11); Neutrophils Absolute Auto 4.5 x10*3/uL (2.0-8.3); Neutrophils Percent Auto 44.8 % (45-73); Platelet Count 331 X10*3/uL (160-400); Red Blood Count 4.88 X10*6/uL (4.20-5.50); Red Cell Distribution Width 13.5 % (11.0-16.0)
[2023-11-24 21:25] LABS: Alanine Aminotransferase 76 U/L (0-31); Albumin Level 4.5 g/dL (3.5-5.0); Alkaline Phosphatase 79 U/L (39-117); Aspartate Amino Transferase 44 U/L (5-31); Bilirubin Direct 0.1 mg/dL (0.0-0.5); Bilirubin Total 0.3 mg/dL (0.0-1.0); Total Protein 8.5 g/dL (6.5-8.0)
[2023-11-25 04:24] LABS: HBc Num1 0.62 S/CO (0.00-0.79); HBsAGNum1 0.23 S/CO (0.00-0.99); Hepatitis B Core Antibody Nonreactive (Nonreactive); Hepatitis B Surface Antigen Negative (Negative); ~HepC Num1 0.12 S/CO (0.00-0.79); ~Hepatitis B Surface Antibody REACTIVE (Nonreactive); ~Hepatitis C Antibody Nonreactive (Nonreactive)
[2023-11-25 05:03] LABS: Hepatitis A Antibody IgM 0.27 Index (0-0.79); ~Hepatitis A Antibody IgM Nonreactive (Nonreactive)
== END 2023-11-24 14:37 | disposition home or self-care (01) ==
LOC: HO.LAB 14:36
PROVIDERS: PCP Internal Medicine; Visit Provider Psychiatry & Neurology Psychiatry
DX: R79.89 Other specified abnormal findings of blood chemistry (principal); Z79.899 Other long term (current) drug therapy; F43.10 Post-traumatic stress disorder, unspecified; F42.9 Obsessive-compulsive disorder, unspecified; G47.33 Obstructive sleep apnea (adult) (pediatric); F31.9 Bipolar disorder, unspecified
CPT/HCPCS: 36415; 80076; 82140; 85025; 86704; 86706; 86709; 86803; 87340

== ENCOUNTER 2023-12-02 16:50 | Outpatient (AMB) | payer OTHER, MEDICARE, SELFPAY ==
--- NOTE | 2023-12-02 16:27 | MHC.OFFVISPS ---
Intake Intake Visit Reasons: depression Allergies thioridazine [From MELLARIL] Allergy (Unknown, Unverified 04/04/20 16:32) UNKNOWN Medication List - Last Reconciled 12/03/23 by Andre Burk MD aripiprazole 10 mg PO BEDTIME clonazepam 1 mg PO TID clozapine orally 1 am 1 aft 1 1/2 bedtime; glycopyrrolate 2 mg PO BEDTIME levothyroxine 50 mcg PO DAILY lorazepam 2 mg PO DAILY PRN metformin ER 500 mg PO QPM omeprazole 20 mg PO DAILY propranolol ER 60 mg PO DAILY sertraline 50 mg PO DAILY 30 days topiramate (Topamax) 1 tab 3 pm 1 tab bedtime 30 days HPI- Psychiatric Chief Complaint: depression HPI Narrative: The patient is seen in Telehealth appointment. She is much improved calmer feels much more organized in thought less spacey less anxious. Sertraline was increased back to 50 mg Clozaril was lowered patient was able to go out with her was able to go to sones and doing things like this was much much improved much less in the way of any orthodox or chatter in her mind patient felt significantly improved no self-harming thoughts much less depressed Mood closer to euthymia obsessional thoughts much improved Past Psychiatric History: See past dictations patient has the history of schizoaffective disorder PTSD with dissociation OCD and was markedly unstable with hospitalizations for many years her life. History of alcohol dependence in remission. Use to see Dr. Celaya. No past patient had been on high-dose fluoxetine which helped with patient significant OCD symptoms but had multiple episodes of severe kamala and past self-harming behavior Mental Status Exam Mental Status Exam Patient Appearance: Well Grooomed and Appropriate Patient Orientation: Person, Place, Time and Situation Level of Consciousness: Awake and Appropriate Patient Behavior: Appropriate Behavior Comments: calm appropriate Mood Description: Calm and Appropriate Affect Description: Appropriate Patient Cognition Impaired: No Ability to Follow Directions: Good Speech Pattern: Clear Memory Description: Episodic Impaired (some impairment ? dissociation) Hallucinations: None Delusions: Not Present Thought Process: Intact and Goal Oriented Thought Content: positive for Goal Oriented, negative for Suicidal Ideation or negative for Homicidal Ideation Depressive Symptoms: Increased Anxiety Judgement: Good Judgement and Insight: Patient with improving judgment and insight much more organized in thought markedly improved less anxious not overly depressed or manic Telehealth Telehealth Telehealth Platform: Other (please specify) (doxyme) Location of provider rendering services: practice address Location of patient: address on file Patient Identification confirmed using: Name, : Yes Telehealth method: video Patient verbally consented to treatment: Yes Patient verbally consented to billing insurance company: Yes Minutes spent on Phone/Video with Pt.: 6 Assessment and Plan Assessment & Plan (1) Bipolar 1 disorder, depressed: Status: Acute Code(s): F31.9 - Bipolar disorder, unspecified (2) Elevated liver function tests: Status: Acute Code(s): R79.89 - Other specified abnormal findings of blood chemistry Plan Patient markedly improved alert pleasant able to enjoy things social more engaged was able to go the store. Feels better with decrease clozapine less dizzy and fuzzy and sertraline increased to 50 mg Counseling and coordination of Care Pt. Self Management counseling: Breathing and Med illness tx adherence Details-Self Mgmt counseling: Have urged regular use of CPAP Medication management counseling: Side effects Diagnosis and Prognosis Counseling: Adequacy of current interventions Details: I spent [20] minutes reviewing the record, seeing the patient and documenting in the medical record. Counseling provided to the patient/caregiver as outlined below. Addressed patient/caregiver concerns regarding current medication regime including effective adherence. Addressed patient/caregiver concerns regarding diagnosis and prognosis including accuracy of diagnosis, prognosis over time, impact of diagnosis. Addressed patient/caregiver concerns regarding impact of recent stressors. 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
== END 2023-12-02 16:51 | disposition home or self-care (01) ==
LOC: HO.HOP 16:50
PROVIDERS: PCP Internal Medicine; Visit Provider Psychiatry & Neurology Psychiatry
DX: F31.9 Bipolar disorder, unspecified (principal); R79.89 Other specified abnormal findings of blood chemistry
CPT/HCPCS: 99212

== ENCOUNTER → 2023-12-02 16:50 | Outpatient (BNVA) | payer OTHER, MEDICARE, SELFPAY | PROVIDERS: PCP Internal Medicine; Visit Provider Psychiatry & Neurology Psychiatry ==

== ENCOUNTER 2024-03-08 14:28 | Outpatient (AMB) | payer OTHER, MEDICARE, SELFPAY ==
--- NOTE | 2024-03-08 14:59 | A.OFFPSYCH_ITS ---
Intake Intake Visit Reasons: Depression Allergies thioridazine [From MELLARIL] Allergy (Unknown, Unverified 04/04/20 16:32) UNKNOWN Medication List - Last Reconciled 03/08/24 by Andre Burk MD aripiprazole 10 mg PO BEDTIME clonazepam 1 mg PO TID clozapine orally 1 am 1 aft 1 1/2 bedtime; glycopyrrolate 2 - 4 mg PO BEDTIME levothyroxine 50 mcg PO DAILY lorazepam 2 mg PO DAILY PRN metformin ER 500 mg PO QPM omeprazole 20 mg PO DAILY propranolol ER 60 mg PO DAILY sertraline 50 mg PO DAILY 30 days topiramate (Topamax) 1 tab 3 pm 1 tab bedtime 30 days HPI- Psychiatric Chief Complaint: Depression HPI Narrative: Pt seen in f/u lianne her d in [place] who will be delivering pt does do superficial self cutting having some anticipatory anxiety about going to [place] pending of her grandchild worried about leaving her grandchildren she babysits had brief period of hypomania has not needed to take lorazepam has not experienced gross psychosis generally doing better Except when had period of time D stabilization when was feeling ill about a month ago and had probably been off medication for a few days or not absorbing regularly had increased episodes of dissociation and Chatter no gross delusional material Past Psychiatric History: See past dictations patient has the history of schizoaffective disorder PTSD with dissociation OCD and was markedly unstable with hospitalizations for many years her life. History of alcohol dependence in remission. Use to see Dr. Celaya. No past patient had been on high-dose fluoxetine which helped with patient significant OCD symptoms but had multiple episodes of severe kamala and past self-harming behavior Mental Status Exam Mental Status Exam Patient Appearance: Well Grooomed and Appropriate Patient Orientation: Person, Place, Time and Situation Level of Consciousness: Awake and Appropriate Patient Behavior: Appropriate Behavior Comments: calm appropriate Mood Description: Calm and Appropriate Affect Description: Appropriate Patient Cognition Impaired: No Ability to Follow Directions: Good Speech Pattern: Clear Memory Description: Episodic Impaired (some impairment ? dissociation) Hallucinations: None Delusions: Not Present Thought Process: Intact and Goal Oriented Thought Content: positive for Goal Oriented, negative for Suicidal Ideation or negative for Homicidal Ideation Depressive Symptoms: Increased Anxiety Judgement: Good Judgement and Insight: Patient with improving judgment and insight much more organized in thought mar kedly improved less anxious not overly depressed or manic Assessment and Plan Assessment & Plan (1) Bipolar 1 disorder, depressed: Status: Acute Code(s): F31.9 - Bipolar disorder, unspecified (2) Elevated liver function tests: Status: Acute Code(s): R79.89 - Other specified abnormal findings of blood chemistry (3) assisted current use of clozapine: Status: Acute Code(s): Z79.899 - Other termite control technician (current) drug therapy (4) Sialorrhea: Status: Acute Code(s): K11.7 - Disturbances of salivary secretion (5) Complex posttraumatic stress disorder: Status: Acute Code(s): F43.10 - Post-traumatic stress disorder, unspecified (6) OCD (obsessive compulsive disorder): Status: Acute Code(s): F42.9 - Obsessive-compulsive disorder, unspecified Plan The patient has had a recent exacerbation of anxiety and dissociation appears to be in context of having been ill for a number of days and possibly not absorbing Topamax and clozapine in a normal way. The patient states this happened about a month ago she has been feeling somewhat better. Patient does admit to chronically having urges at times for superficial self-harming behavior which is associated with increased anxiety in the past she would have been drinking which she has not done. She does work on this to some significant degree with her therapist. Patient has had increased anxiety over the past few weeks she will be flying out to send a go her daughter is giving she is worried about her another daughter had a miscarriage and she is worried about how her grandchildren will do when she is not there Increase glycopyrrolate 4 mg secondary to sialorrhea Medications: Changed From glycopyrrolate 2 mg PO BEDTIME 60 tabs 2RF To glycopyrrolate 2 - 4 mg (1 - 2 x 2 mg) PO BEDTIME 60 tabs 2RF From glycopyrrolate 2 - 4 mg PO BEDTIME To glycopyrrolate 2 mg PO BEDTIME 60 tabs 2RF Refilled clozapine orally 1 am 1 aft 1 1/2 bedtime; 60 tabs 10RF propranolol ER 60 mg PO DAILY 30 caps 3RF Counseling and coordination of Care Details-Self Mgmt counseling: Issues related to self-management and dissociation Diagnosis and Prognosis Counseling: Problematic behaviors secondary to diagnosis and Adequacy of current interventions Details: I spent [40] minutes reviewing the record, seeing the patient and documenting in the medical record. Counseling provided to the patient/caregiver as outlined below. Addressed patient/caregiver concerns regarding current medication regime including effective adherence. Addressed patient/caregiver concerns regarding diagnosis and prognosis including accuracy of diagnosis, prognosis over time, impact of diagnosis. Addressed patient/caregiver concerns regarding impact of recent stressors. 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
== END 2024-03-08 15:38 | disposition home or self-care (01) ==
LOC: HO.HOP 14:28
PROVIDERS: PCP Internal Medicine; Visit Provider Psychiatry & Neurology Psychiatry
DX: F31.9 Bipolar disorder, unspecified (principal); R79.89 Other specified abnormal findings of blood chemistry; Z79.899 Other long term (current) drug therapy; K11.7 Disturbances of salivary secretion; F43.10 Post-traumatic stress disorder, unspecified; F42.9 Obsessive-compulsive disorder, unspecified
CPT/HCPCS: 90833; 99213

== ENCOUNTER → 2024-03-08 14:28 | Outpatient (BNVA) | payer OTHER, MEDICARE, SELFPAY | PROVIDERS: PCP Internal Medicine; Visit Provider Psychiatry & Neurology Psychiatry ==

== ENCOUNTER 2024-03-24 11:36 | Outpatient (REF) | payer OTHER, MEDICARE, SELFPAY ==
[2024-03-24 11:51] LABS: MANUAL DIFF FLAG NO
[2024-03-24 13:43] LABS: Basophils Absolute Auto 0.1 X10*3/uL (0.0-0.2); Basophils Percent Auto 1.3 % (0-2); Eosinophils Absolute Auto 0.3 X10*3/uL (0.0-0.4); Eosinophils Percent Auto 3.1 % (0-4); Hemoglobin 14.5 g/dl (12.0-16.0); Imm Gran Abs Auto 0.05 X10*3/uL (0.00-0.03); Imm Gran Pct Auto 0.5 % (0.0-0.4); Lymphocytes Absolute Auto 3.6 X10*3/uL (1.2-4.9); Mean Corpuscular HGB Conc 33.7 g/dl (31.0-35.0); Mean Corpuscular Hemoglobin 30.7 pg (27.0-33.0); Mean Corpuscular Volume 90.9 fL (80.0-98.0); Monocytes Percent Auto 9.9 % (2-11); Neutrophils Absolute Auto 4.9 x10*3/uL (2.0-8.3); Neutrophils Percent Auto 49.2 % (45-73); Platelet Count 325 X10*3/uL (160-400); Red Blood Count 4.73 X10*6/uL (4.20-5.50); Red Cell Distribution Width 13.2 % (11.0-16.0); White Blood Count 9.9 X10*3/uL (4.8-10.8)
[2024-03-24 14:13] LABS: Alanine Aminotransferase 42 U/L (0-31); Albumin Level 4.2 g/dL (3.5-5.0); Alkaline Phosphatase 97 U/L (39-117); Anion Gap 12 (12-20); Aspartate Amino Transferase 29 U/L (5-31); Bilirubin Total 0.2 mg/dL (0.0-1.0); Blood Urea Nitrogen 15 mg/dL (9-16); Carbon Dioxide 24 mmol/L (22-29); Chloride 109 mmol/L (96-108); Estimated Glomerular Filt Rate 50; Glucose Random 109 mg/dL (60-115); Potassium 3.7 mmol/L (3.3-5.1); Sodium 141 mmol/L (135-145)
[2024-03-24 14:22] LABS: Estimated Average Glucose 114 mg/dL; Hemoglobin A1C 146.2976 umol/L; Hemoglobin A1c % 5.6 % (<6.0); TSH reflex Free T4 1.25 uIU/mL (0.32-4.0)
[2024-03-25 07:56] LABS: HBS Num1 59.44 mIU/mL (0-7.99); HBc Num1 0.67 S/CO (0.00-0.79); HBsAGNum1 0.21 S/CO (0.00-0.99); Hepatitis A Antibody IgM 0.28 Index (0-0.79); Hepatitis B Core Antibody Nonreactive (Nonreactive); Hepatitis B Surface Antigen Negative (Negative); ~HepC Num1 0.13 S/CO (0.00-0.79); ~Hepatitis A Antibody IgM Nonreactive (Nonreactive); ~Hepatitis B Surface Antibody REACTIVE (Nonreactive); ~Hepatitis C Antibody Nonreactive (Nonreactive)
== END 2024-03-24 11:37 | disposition home or self-care (01) ==
LOC: HO.LAB 11:36
PROVIDERS: Visit Provider Psychiatry & Neurology Psychiatry
DX: R74.01 Elevation of levels of liver transaminase levels (principal); F31.9 Bipolar disorder, unspecified; R73.9 Hyperglycemia, unspecified; Z79.899 Other long term (current) drug therapy
CPT/HCPCS: 36415; 80053; 83036; 84443; 85025; 86704; 86706; 86709; 86803; 87340

== ENCOUNTER 2024-05-05 12:12 | Outpatient (REF) | payer OTHER, MEDICARE, SELFPAY ==
[2024-05-05 12:25] LABS: MANUAL DIFF FLAG NO
[2024-05-05 13:29] LABS: Basophils Absolute Auto 0.1 X10*3/uL (0.0-0.2); Eosinophils Absolute Auto 0.5 X10*3/uL (0.0-0.4); Eosinophils Percent Auto 4.4 % (0-4); Hematocrit 43.6 % (37.0-47.0); Hemoglobin 14.4 g/dl (12.0-16.0); Imm Gran Abs Auto 0.09 X10*3/uL (0.00-0.03); Imm Gran Pct Auto 0.9 % (0.0-0.4); Lymphocytes Absolute Auto 3.9 X10*3/uL (1.2-4.9); Lymphocytes Percent Auto 37.7 % (20-40); Mean Corpuscular Hemoglobin 30.4 pg (27.0-33.0); Mean Corpuscular Volume 92.2 fL (80.0-98.0); Mean Platelet Volume 11.3 fL (9.4-12.3); Monocytes Absolute Auto 0.9 X10*3/uL (0.1-1.2); Monocytes Percent Auto 8.3 % (2-11); Neutrophils Absolute Auto 4.9 x10*3/uL (2.0-8.3); Neutrophils Percent Auto 47.7 % (45-73); Platelet Count 342 X10*3/uL (160-400); Red Blood Count 4.73 X10*6/uL (4.20-5.50); Red Cell Distribution Width 13.3 % (11.0-16.0); White Blood Count 10.2 X10*3/uL (4.8-10.8)
== END 2024-05-05 12:13 | disposition home or self-care (01) ==
LOC: HO.LAB 12:12
PROVIDERS: PCP Internal Medicine; Visit Provider Psychiatry & Neurology Psychiatry
DX: Z79.899 Other long term (current) drug therapy (principal)
CPT/HCPCS: 36415; 85025

== ENCOUNTER 2024-05-15 14:21 | Outpatient (AMB) | payer OTHER, MEDICARE, SELFPAY ==
--- NOTE | 2024-05-15 15:10 | MHC.OFFVISPS ---
Intake Intake Visit Reasons: DEPRESSION Allergies thioridazine [From MELLARIL] Allergy (Unknown, Unverified 04/04/20 16:32) UNKNOWN Medication List - Last Reconciled 05/15/24 by Andre Burk MD aripiprazole 10 mg PO BEDTIME clonazepam 1 mg PO TID clozapine orally 1 am 1 aft 1 1/2 bedtime; glycopyrrolate 2 - 4 mg (1 - 2 x 2 mg) PO BEDTIME levothyroxine 50 mcg PO DAILY lorazepam 2 mg PO DAILY PRN metformin ER 500 mg PO QPM omeprazole 20 mg PO DAILY propranolol ER 60 mg PO DAILY sertraline 75 mg (1.5 x 50 mg) PO DAILY 30 days topiramate (Topamax) 1 tab 3 pm 1 tab bedtime 30 days HPI- Psychiatric Chief Complaint: DEPRESSION HPI Narrative: The patient has been more depressed and anxious ruminating , since coming back from being in [place] to help her daughter who just gave . Has not been drinking alcohol does have urges at times to cut can be quite secretive about this not to kill but SIB. Denies current kamala or agitation. Feels lethargic in difficulty with attention and memory ANC has been stable remains on clozapine. Has not been using CPAP regularly Past Psychiatric History: See past dictations patient has the history of schizoaffective disorder PTSD with dissociation OCD and was markedly unstable with hospitalizations for many years her life. History of alcohol dependence in remission. Use to see Dr. Celaya. No past patient had been on high-dose fluoxetine which helped with patient significant OCD symptoms but had multiple episodes of severe kamala and past self-harming behavior Mental Status Exam Mental Status Exam Patient Appearance: Well Grooomed and Appropriate Patient Orientation: Person, Place, Time and Situation Level of Consciousness: Awake and Appropriate Patient Behavior: Appropriate and Passive Behavior Comments: Sad and apprehensive in appearance Mood Description: Depressed and Apprehensive Affect Description: Constricted, Anxious and Apprehensive Patient Cognition Impaired: No Ability to Follow Directions: Good Speech Pattern: Clear Memory Description: Episodic Impaired (some impairment ? dissociation) Hallucinations: None Delusions: Not Present Perceptual Disturbances: Depersonalization Thought Process: Intact and Goal Oriented Thought Content: positive for Preoccupation, positive for Suicidal Ideation (Denies active thoughts) and negative for Homicidal Ideation Depressive Symptoms: Increased Anxiety, Loss of Int. in Activity, Feelings of Worthlessness, Feelings of Guilt and Increased Fatigue Judgement: Good Judgement and Insight: Patient asking for help has been increasingly anxious and dysphoric Assessment and Plan Assessment & Plan (1) Bipolar 1 disorder, depressed: Status: Acute Code(s): F31.9 - Bipolar disorder, unspecified (2) OCD (obsessive compulsive disorder): Status: Acute Code(s): F42.9 - Obsessive-compulsive disorder, unspecified Plan Strongly urged use of CPAP to improve cognition attention and mood. Increase sertraline to 75 mg a day monitor for any manic symptoms irritability or mood cycling. Lowered Topamax to a half tablet at 15:00 and 1 tablet at bedtime to help improve cognition monitor response Medications: Changed From sertraline 50 mg PO DAILY 30 days 30 tabs 2RF To sertraline 75 mg (1.5 x 50 mg) PO DAILY 45 tabs 2RF 30 days Counseling and coordination of Care Pt. Self Management counseling: Breathing and Med illness tx adherence Details-Self Mgmt counseling: Issues related to managing mood and excessive worry Medication management counseling: Effectiveness, Side effects and Dosing range Diagnosis and Prognosis Counseling: Problematic behaviors secondary to diagnosis and Adequacy of current interventions Details: I spent [38] minutes reviewing the record, seeing the patient and documenting in the medical record. Counseling provided to the patient/caregiver as outlined below. Addressed patient/caregiver concerns regarding current medication regime including effective adherence. Addressed patient/caregiver concerns regarding diagnosis and prognosis including accuracy of diagnosis, prognosis over time, impact of diagnosis. Addressed patient/caregiver concerns regarding impact of recent stressors. 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
== END 2024-05-15 15:16 | disposition home or self-care (01) ==
LOC: HO.HOP 14:21
PROVIDERS: PCP Internal Medicine; Visit Provider Psychiatry & Neurology Psychiatry
DX: F31.9 Bipolar disorder, unspecified (principal); F42.9 Obsessive-compulsive disorder, unspecified
CPT/HCPCS: 99214

== ENCOUNTER → 2024-05-15 14:21 | Outpatient (BNVA) | payer OTHER, MEDICARE, SELFPAY | PROVIDERS: PCP Internal Medicine; Visit Provider Psychiatry & Neurology Psychiatry ==

== ENCOUNTER 2024-06-07 10:51 | Outpatient (REF) | payer OTHER, MEDICARE, SELFPAY ==
[2024-06-07 11:24] LABS: MANUAL DIFF FLAG NO
[2024-06-07 11:48] LABS: Basophils Absolute Auto 0.1 X10*3/uL (0.0-0.2); Eosinophils Absolute Auto 0.4 X10*3/uL (0.0-0.4); Eosinophils Percent Auto 3.6 % (0-4); Hematocrit 39.7 % (37.0-47.0); Hemoglobin 13.3 g/dl (12.0-16.0); Imm Gran Abs Auto 0.11 X10*3/uL (0.00-0.03); Imm Gran Pct Auto 0.9 % (0.0-0.4); Lymphocytes Absolute Auto 4.2 X10*3/uL (1.2-4.9); Lymphocytes Percent Auto 35.7 % (20-40); Mean Corpuscular HGB Conc 33.5 g/dl (31.0-35.0); Mean Corpuscular Hemoglobin 30.4 pg (27.0-33.0); Mean Corpuscular Volume 90.6 fL (80.0-98.0); Mean Platelet Volume 10.6 fL (9.4-12.3); Monocytes Absolute Auto 0.9 X10*3/uL (0.1-1.2); Monocytes Percent Auto 7.5 % (2-11); Neutrophils Absolute Auto 6.1 x10*3/uL (2.0-8.3); Neutrophils Percent Auto 51.3 % (45-73); Platelet Count 342 X10*3/uL (160-400); Red Blood Count 4.38 X10*6/uL (4.20-5.50); Red Cell Distribution Width 13.2 % (11.0-16.0); White Blood Count 11.9 X10*3/uL (4.8-10.8)
== END 2024-06-07 10:52 | disposition home or self-care (01) ==
LOC: HO.LAB 10:51
PROVIDERS: PCP Internal Medicine; Visit Provider Psychiatry & Neurology Psychiatry
DX: Z79.899 Other long term (current) drug therapy (principal)
CPT/HCPCS: 36415; 85025

== ENCOUNTER 2024-06-28 14:30 | Outpatient (REF) | payer OTHER, MEDICARE, SELFPAY ==
[2024-06-28 15:34] LABS: MANUAL DIFF FLAG NO
[2024-06-28 15:52] LABS: Basophils Absolute Auto 0.1 X10*3/uL (0.0-0.2); Basophils Percent Auto 1.2 % (0-2); Eosinophils Absolute Auto 0.7 X10*3/uL (0.0-0.4); Eosinophils Percent Auto 5.4 % (0-4); Hematocrit 42.1 % (37.0-47.0); Imm Gran Abs Auto 0.08 X10*3/uL (0.00-0.03); Imm Gran Pct Auto 0.7 % (0.0-0.4); Lymphocytes Absolute Auto 4.6 X10*3/uL (1.2-4.9); Lymphocytes Percent Auto 37.9 % (20-40); Mean Corpuscular HGB Conc 33.3 g/dl (31.0-35.0); Mean Corpuscular Hemoglobin 30.6 pg (27.0-33.0); Mean Corpuscular Volume 91.9 fL (80.0-98.0); Mean Platelet Volume 10.4 fL (9.4-12.3); Monocytes Percent Auto 8.3 % (2-11); Neutrophils Absolute Auto 5.6 x10*3/uL (2.0-8.3); Neutrophils Percent Auto 46.5 % (45-73); Platelet Count 349 X10*3/uL (160-400); Red Blood Count 4.58 X10*6/uL (4.20-5.50); Red Cell Distribution Width 13.2 % (11.0-16.0)
== END 2024-06-28 14:31 | disposition home or self-care (01) ==
LOC: HO.LAB 14:30
PROVIDERS: PCP Internal Medicine; Visit Provider Psychiatry & Neurology Psychiatry
DX: Z79.899 Other long term (current) drug therapy (principal)
CPT/HCPCS: 36415; 85025

== ENCOUNTER 2024-06-28 14:30 | Outpatient (AMB) | payer OTHER, MEDICARE, SELFPAY ==
--- NOTE | 2024-06-28 15:31 | A.OFFPSYCH_ITS ---
Intake Intake Visit Reasons: DEPRESSION Allergies thioridazine [From MELLARIL] Allergy (Unknown, Unverified 04/04/20 16:32) UNKNOWN HPI- Psychiatric Chief Complaint: DEPRESSION HPI Narrative: Pt seen has been with inc anxiety dysphoria patient tends to be obsessional early ruminating regarding catastrophic things that can happen she had been quite concerned when out of sorts helping her daughter in [facility]. Feels overwhelmed at times taking care grandchildren at the house although this burden has become much less and she always has someone with her help with caretaking. Patient continues on Clozaril and Abilify not grossly psychotic the should her chatter in her mind has significantly decreased Past Psychiatric History: See past dictations patient has the history of schizoaffective disorder PTSD with dissociation OCD and was markedly unstable with hospitalizations for many years her life. History of alcohol dependence in remission. Use to see Dr. Celaya. No past patient had been on high-dose fluoxetine which helped with patient significant OCD symptoms but had multiple episodes of severe kamala and past self-harming behavior Mental Status Exam Mental Status Exam Patient Appearance: Well Grooomed and Appropriate Patient Orientation: Person, Place, Time and Situation Level of Consciousness: Awake and Appropriate Patient Behavior: Appropriate and Passive Behavior Comments: Sad and apprehensive in appearance Mood Description: Depressed and Apprehensive Affect Description: Constricted, Anxious and Apprehensive Patient Cognition Impaired: No Ability to Follow Directions: Good Speech Pattern: Clear Memory Description: Episodic Impaired (some impairment ? dissociation) Hallucinations: None Delusions: Not Present Perceptual Disturbances: Depersonalization Thought Process: Intact and Goal Oriented Thought Content: positive for Preoccupation, positive for Suicidal Ideation (Denies active thoughts) and negative for Homicidal Ideation Depressive Symptoms: Increased Anxiety, Loss of Int. in Activity, Feelings of Guilt and Increased Fatigue Judgement: Good Judgement and Insight: Patient asking for help has been trying to manage her catastrophic thinking and to find ways to have interactions that are more relaxed and to be there more for her family as possible and to find some evans with her grandchildren. Thoughts at times she would be better off but denies plan or intent trying for better quality of life for herself and her family Assessment and Plan Assessment & Plan (1) Bipolar 1 disorder, depressed: Status: Acute Code(s): F31.9 - Bipolar disorder, unspecified (2) Complex posttraumatic stress disorder: Status: Acute Code(s): F43.10 - Post-traumatic stress disorder, unspecified (3) OCD (obsessive compulsive disorder): Status: Acute Code(s): F42.9 - Obsessive-compulsive disorder, unspecified Plan Patient change from clonazepam to lorazepam hopefully will help with attention short-term memory memory processing. Continue clozapine Abilify sertraline Medications: New lorazepam 1 mg PO TID 90 tabs 1RF Changed From sertraline 75 mg (1.5 x 50 mg) PO DAILY 30 days 45 tabs 2RF To sertraline 100 mg PO DAILY 30 tabs 2RF Discontinued clonazepam Discontinued Reason: Duplicate 1 mg PO TID 90 tabs 3RF Counseling and coordination of Care Diagnosis and Prognosis Counseling: Problematic behaviors secondary to diagnosis and Adequacy of current interventions Details: I spent [37] minutes reviewing the record, seeing the patient and documenting in the medical record. Counseling provided to the patient/caregiver as outlined below. Addressed patient/caregiver concerns regarding current medication regime including effective adherence. Addressed patient/caregiver concerns regarding diagnosis and prognosis including accuracy of diagnosis, prognosis over time, impact of diagnosis. Addressed patient/caregiver concerns regarding impact of recent stressors. 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
== END 2024-06-28 15:17 | disposition home or self-care (01) ==
LOC: HO.HOP 14:30
PROVIDERS: PCP Internal Medicine; Visit Provider Psychiatry & Neurology Psychiatry
DX: F31.9 Bipolar disorder, unspecified (principal); F43.10 Post-traumatic stress disorder, unspecified; F42.9 Obsessive-compulsive disorder, unspecified
CPT/HCPCS: 99214

== ENCOUNTER 2024-07-27 14:56 | Outpatient (AMB) | payer OTHER, MEDICARE, SELFPAY ==
--- NOTE | 2024-07-27 15:23 | A.OFFPSYCH_ITS ---
Intake Intake Visit Reasons: depression Allergies thioridazine [From MELLARIL] Allergy (Unknown, Unverified 04/04/20 16:32) UNKNOWN HPI- Psychiatric Chief Complaint: depression HPI Narrative: Pt seen in f/u mood has been anxious has been working to try to challenge some of her behavioral restrictions. She has been trying to go out more with her go out to dinner at times and working at ways to be able to tolerate leaving the house more. She has been working with her therapist Dr. Carrasco. The patient has been on a somewhat lower dose of Topamax down to 300 mg from 400 qu estion improved mentation and memory. Have strongly urged regular use of CPAP the patient does tend to have ruminating anxiety and has been trying to balance this out with finding some ways to experience evans and pleasure Past Psychiatric History: See past dictations patient has the history of schizoaffective disorder PTSD with dissociation OCD and was markedly unstable with hospitalizations for many years her life. History of alcohol dependence in remission. Use to see Dr. Celaya. No past patient had been on high-dose fluoxetine which helped with patient significant OCD symptoms but had multiple episodes of severe kamala and past self-harming behavior Mental Status Exam Mental Status Exam Patient Appearance: Well Grooomed and Appropriate Patient Orientation: Person, Place, Time and Situation Level of Consciousness: Awake and Appropriate Patient Behavior: Appropriate and Passive Behavior Comments: Sad and apprehensive in appearance Mood Description: Apprehensive Affect Description: Constricted, Anxious and Apprehensive Patient Cognition Impaired: No Ability to Follow Directions: Good Speech Pattern: Clear Memory Description: Episodic Impaired (some impairment ? dissociation) Hallucinations: None Delusions: Not Present Perceptual Disturbances: Depersonalization Thought Process: Intact and Goal Oriented Thought Content: positive for Preoccupation, positive for Suicidal Ideation (Denies active thoughts) and negative for Homicidal Ideation Depressive Symptoms: Increased Anxiety, Loss of Int. in Activity, Feelings of Guilt and Increased Fatigue Judgement: Good Judgement and Insight: Patient asking for help has been trying to manage her catastrophic thinking and to find ways to have interactions that are more relaxed and to be there more for her family as possible and to find some evans with her grandchildren. 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 Did not tolerate Depakote long-term unable to take lithium long-term. Has done better with long-term use of clozapine no decrease in and see tolerating medication Glycopyrrolate helpful for sialorrhea No abnormal movements consistent with TD noted on exam no oral facial dyskinesia on sertraline 100 mg in general this does appear to have been helpful for anxiety and preventing panic helping to some degree but obsessional rumination had required over 8200 mg of fluoxetine in the past however this created marked cycling and kamala in years past. She has been challenging herself more Counseling and coordination of Care Details-Self Mgmt counseling: Issues related to management of anxiety chronic low self-esteem and self despair judgment Medication management counseling: Effectiveness, Side effects and Dosing range Diagnosis and Prognosis Counseling: Problematic behaviors secondary to diagnosis and Adequacy of current interventions Details: I spent [0] minutes reviewing the record, seeing the patient and documenting in the medical record. Counseling provided to the patient/caregiver as outlined below. Addressed patient/caregiver concerns regarding current medication regime including effective adherence. Addressed patient/caregiver concerns regarding diagnosis and prognosis including accuracy of diagnosis, prognosis over time, impact of diagnosis. Addressed patient/caregiver concerns regarding impact of recent stressors. 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
== END 2024-07-27 15:55 | disposition home or self-care (01) ==
LOC: HO.HOP 14:56
PROVIDERS: PCP Internal Medicine; Visit Provider Psychiatry & Neurology Psychiatry
DX: F31.9 Bipolar disorder, unspecified (principal); F43.10 Post-traumatic stress disorder, unspecified; F42.9 Obsessive-compulsive disorder, unspecified; Z79.899 Other long term (current) drug therapy
CPT/HCPCS: 90833; 99213

== ENCOUNTER 2024-07-27 14:56 | Outpatient (REF) | payer OTHER, MEDICARE, SELFPAY ==
[2024-07-27 16:14] LABS: MANUAL DIFF FLAG NO
[2024-07-27 17:04] LABS: Basophils Absolute Auto 0.1 X10*3/uL (0.0-0.2); Basophils Percent Auto 0.9 % (0-2); Eosinophils Percent Auto 7.4 % (0-4); Hematocrit 43.4 % (37.0-47.0); Hemoglobin 14.5 g/dl (12.0-16.0); Imm Gran Abs Auto 0.11 X10*3/uL (0.00-0.03); Imm Gran Pct Auto 0.8 % (0.0-0.4); Lymphocytes Absolute Auto 4.8 X10*3/uL (1.2-4.9); Lymphocytes Percent Auto 35.7 % (20-40); Mean Corpuscular HGB Conc 33.4 g/dl (31.0-35.0); Mean Corpuscular Hemoglobin 30.2 pg (27.0-33.0); Mean Corpuscular Volume 90.4 fL (80.0-98.0); Mean Platelet Volume 10.9 fL (9.4-12.3); Monocytes Absolute Auto 1.1 X10*3/uL (0.1-1.2); Monocytes Percent Auto 7.8 % (2-11); Neutrophils Absolute Auto 6.4 x10*3/uL (2.0-8.3); Neutrophils Percent Auto 47.4 % (45-73); Platelet Count 380 X10*3/uL (160-400); Red Cell Distribution Width 13.4 % (11.0-16.0); White Blood Count 13.5 X10*3/uL (4.8-10.8)
== END 2024-07-27 14:57 | disposition home or self-care (01) ==
LOC: HO.LAB 14:56
PROVIDERS: PCP Internal Medicine; Visit Provider Psychiatry & Neurology Psychiatry
DX: Z79.899 Other long term (current) drug therapy (principal)
CPT/HCPCS: 36415; 85025

== ENCOUNTER 2024-09-04 11:12 | Outpatient (REF) | payer OTHER, MEDICARE, SELFPAY ==
--- OUTSIDE RECORDS SUMMARY | 2024-09-04 11:16 | XMS_ITS | Encounter Summary ---
Author Organization [employer] Address [address] [place] [address] Care Team Providers Care Security Lead Name Role Phone Linda Cunningham MD Primary Care Provider [phone] Encounter Details Date Type Department Care Team (Late st Contact Info) Description 05/10/2024 Orders Only [facility] MEDICAL [address] [place] [address] ProviderTonya MD Social History Tobacco Use Types Packs/Day Years Used Date Smoking Tobacco: Former Cigarettes Smokeless Tobacco: Never Alcohol Use Standard Drinks/Week Comments Not Currently 0 (1 standard drink = 0.6 oz pur e alcohol) Depression Answer Date Recorded Patient Health Questionnaire-9 Score 15 10/06/2023 Patient Health Questionnaire-9 Score 15 10/06/2023 Last PHQ-9: Questionnaire Data Not on file 0 10/06/2023 Housing Stability Answer Date Recorded What is your housing situation today? I have sharron kemp 05/07/[address] you li ve. Do you have problems with any of the following? None of the above 05/07/2023 Food Insecurity Answer Date Recorded Within the past 12 months, y ou worried that your food would run out before you got money to buy more: Never True 05/07/2023 Within the past 12 months,th e food you bought just didn't last and you didn't have enough money to get more: Never True Transportation Answer Date Recorded In the past 12 months, has l ack of transportation kept you from medical appts, meetings, work or from getting things needed for daily living? No 05/07/2023 Utilities Answer Date Recorded In the past 12 months, has t he electric, gas, oil or water company threatened to shut off services in your home? No 05/07/2023 Depression Answer Date Recorded Patient Health Questionnaire-2 Score 4 10/06/2023 Comments Unknown Sex and Gender Information Value Date Recorded Sex Assigned at Female 09/10/2022 11:16 AM EST Legal Sex Female 8:36 PM EDT Gender Identity Female 09/10/2022 11:16 AM EST Sexual Orientation Straight 09/10/2022 11 :16 AM EST documented as of this encounter Plan of Treatment Upcoming Encounters Date Type Department Care Team (Late st Contact Info) Description 09/26/2024 2:30 PM EDT Office Visit [facility] MEDICAL [address] [place] [address] Linda Cunningham MD [address] [place] [address] documented as of this encounter Procedures Procedure Name Priority Date/Time Associated Diagnosis Comments CBC WITH AUTO DIFFERENTIAL Routine 05/05/2024 5:31 PM EDT documented in this encounter Results * CBC auto differential (05/05/2024 5:31 PM EDT) Blood Venous blood specimen / Unknown us Historical Provider LAB BLOOD ORDERABLES Yani l Result documented in this encounter Visit Diagnoses Not on filedocumented in this encounter Additional Health Concerns Assessment Noted Time PHQ-9 Depression Total Score: 15 024 11:05 AM EDT documented as of this encounter Care Teams Security Lead Relationship Specialty Start Date End Date Linda Cunningham MD [address] [place] [address] PCP - General Internal Medicine 09/10/22 documented as of this encounter
--- OUTSIDE RECORDS SUMMARY | 2024-09-04 11:16 | XMS_ITS | Clinical Summary ---
Author Organization [employer] Address [address] [place] [address] [address] [place] [address] Care Team Providers Care Mounter Hand Name Role Phone Linda Cunningham MD Primary Care Provider [phone] Allergies Active Allergy Reactions Criticality Noted Date Comments Thioridazine High 11/05/2020 Other reaction(s): cardiac arrest in combo w/SSRI, Other (see comments) Medications * This document contains information received from the source organization and may not represent a complete record from that organization. Respiratory Therapy Supplies (CareTouch CPAP & BIPAP Hose) misc 8-20 mm Hg with heated humidification nightly 03/13/20 19 Active acyclovir (Zovirax) 5 % ointment APPLY TOPICALLY EVERY 3 HOURS (6 TIMES A DAY) FOR 7 DAYS 11/27/19 22 Active ARIPiprazole (Abilify) 10 MG tablet Take 10 mg by mouth at bedtime. 08/11/19 23 Active chlorhexidine (Peridex) 0.12 % solution RINSE MOUTH WITH 15ML FOR 30 SECONDS TWO TIMES A DAY 02/24/20 22 Active clonazePAM (KlonoPIN) 1 MG tablet Take 1 mg by mouth 3 times daily. 09/07/19 23 Active cloZAPine (Clozaril) 50 MG tablet 50 mg 3 times daily. 08/22/19 23 Active LORazepam (Ativan) 2 MG tablet Take 2 mg by mouth if needed each day. 08/11/19 23 Active QUEtiapine (SEROquel) 100 MG tablet Take 100 mg by mouth if needed each day. 02/13/20 22 Active sertraline (Zoloft) 50 MG tablet Take 50 mg by mouth in the morning. Per Dr Burk 08/22/19 23 Active silver sulfADIAZINE (Silvadene) 1 % cream Silvadene 1 % topical cream APPLY A 1/16 INCH (1.5 MM) THICK LAYER TO ENTIRE BURN AREA BY TOPICALROUTE 2 TIMES PER DAY x 5 days Active topiramate (Topamax) 100 MG tablet Take 100 mg by mouth 2 times daily. 09/09/19 23 Active tacrolimus (Protopic) 0.1 % ointment APPLY TOPICALLY TO AFFECTED AREA ON LEFT THUMB TWO TIMES A DAY NEEDED 03/05/20 23 Active albuterol (ProAir HFA) 108 (90 Base) MCG/ACT inhaler Inhale 2 puffs every 4 (four) hours if needed for wheezing or shortness of breath. 8.5 g 05/22/20 23 Active glycopyrrolate (Robinul) 2 MG tablet Take 2 mg by mouth at bedtime. 08/04/19 24 Active metFORMIN XR (Glucophage-XR) 500 MG 24 hr tabletIndication s:Obesity (BMI 35.0-39.9 without comorbidity) TAKE ONE TABLET BY MOUTH EVERY DAY. DO NOT CRUSH, CHEW, OR SPLIT 90 tablet 3 01/23/20 24 Active levothyroxine (Synthroid, Levoxyl) 50 MCG tablet TAKE ONE TABLET BY MOUTH EVERY DAY 30 tablet 12 04/06/20 24 Active omeprazole (PriLOSEC) [address] capsule Take 1 capsule (20 mg) by mouth Once per day. 90 capsule 3 05/19/20 24 Active propranolol LA (Inderal LA) 60 MG 24 hr capsule Take 1 capsule (60 mg) by mouth Once per day. 90 capsule 3 05/19/20 24 025 Active minoxidil (Loniten) 2.5 MG tablet Take 1 tablet (2.5 mg) by mouth Once per day. 30 tablet 2 05/26/20 24 025 Active Active Problems Problem Noted Date Diagnosed Date Anxiety 10/06/2023 Overview (10/06/2023): gets abdominal pain when anxious Mixed obsessional thoughts and acts 10/06/2023 Bipolar 1 disorder 09/11/2022 Obesity (BMI 35.0-39.9 without comorbidity) 08/20 PTSD (post-traumatic stress disorder) 09/11/2022 Sleep apnea in adult 09/11/2022 Steatosis of liver 09/11/2022 Hypothyroidism 11/05/2020 High serum creatinine 11/05/2020 Stage 3 chronic kidney disease 11/05/2020 Encounters * This document contains information received from the source organization and may not represent a complete record from that organization. Date Type Department Care Team Description 08/04/2024 Orders Only [facility] MEDICAL [address] [place] [address] ProviderTonya MD 07/07/2024 Orders Only [facility] MEDICAL [address] [place] [address] ProviderTonya MD 06/11/2024 Orders Only [facility] Information Management [address] [facility], [place] [id number] Linda Cunningham MD from Last 3 Months Immunizations Name Administration Dates Next Due Influenza Injectable Quadriv alant Preservative Free IIV4 MDCK 05/07/2023 Influenza injectable quadriv alent preservative free 05/22/2019 Influenza, IIV3, injectable 04/08/2020,1 ,05/17/2017,2014,07/13/2013 Influenza, Injectable, MDCK, w/preservative 05/19/2024 Influenza, Split (incl. bipin fied surface antigen) 08/05/2012,08/04/2011,07/04/2010 TD (adult), 2 Lf tetanus tox oid, preservative free, adsorbed 03/27/2003 Tdap 05/19/2024,07/13/2013 Family History Medical History Relation Name Comments Diabetes Father Colon polyps Mother Relation Name Status Comments Father Mother Social History Tobacco Use Types Packs/Day Years Used Date Smoking Tobacco: Former Cigarettes Smokeless Tobacco: Never Tobacco Cessation:Counseling Given: Not Answered Alcohol Use Standard Drinks/Week Comments Not Currently [...] Orientation Straight 09/10/2022 11 :16 AM EST Last Filed Vital Signs Vital Sign Reading Time Taken Comments Blood Pressure 110/74 05/19/2024 9:55 AM EDT Pulse 88 05/19/2024 9:55 AM EDT Temperature 36.3 ??C (97.4 ??F) 05/19/2024 9:55 AM ED T Respiratory Rate 16 05/19/2024 9:55 AM EDT Oxygen Saturation 95% 08/13/2023 1:57 PM EST Inhaled Oxygen Concentration - - Weight 101 kg (222 lb) 05/19/2024 9:55 AM EDT Height 165.1 cm (5' 5 ) 05/19/2024 9:55 AM EDT Body Mass Index 36.94 05/19/2024 9:55 AM EDT Plan of Treatment Upcoming Encounters Date Type Department Care Team (Late st Contact Info) Description 09/26/2024 2:30 PM EDT Office Visit [facility] MEDICAL [address] [place] [address] Linda Cunningham MD [address] [place] [address] Health Maintenance Due Date Last Done Comments CT Colonography 1966 FIT DNA/Cologuard 1966 FIT 1966 FOBT 1966 HIV Screening 1966 Sigmoidoscopy 1966 Alcohol/Substance Use Screening 1978 Hepatitis C Screening 1984 Hepatitis A Vaccines (1 of 2 - Risk 2-dose series) 1985 Hepatitis B Vaccines (1 of 3 - 19+ 3-dose series) 1985 Pneumococcal Vaccine: 50+ Years (1 of 1 - PCV) 2016 Zoster Vaccines (1 of 2) 2016 Mammogram 03/24/2021 03/24/2019, 03/24/2019 SDOH Screening 01/13/2024 01/12/2023 Cervical Cancer Screening 03/01/2024 HPV/Cotest 03/01/2024 03/01/2019, 09/08/2013 Pap Smear 03/01/2024 03/01/2019, 09/08/2013 COVID-19 Vaccine ( season) 2024 06/22/2022, 06/06/2021, 10/31/2020, Additional history exists Influenza Vaccine (#1) 2024 , 05/07/2023, 04/08/2020, Additional history exists Depression Monitoring (PHQ-9) 04/07/2024 10/06/2023, 10/06/2023 Depression Screening 10/05/2024 10/06/2023, 10/06/19 24 Diabetes: Hemoglobin A1C 11/15/2024 024, 09/16/2022, 07/28/2021, Additional history exists Tobacco Screening 05/19/2025 05/19/2024 Lipid Panel 11/15/2028 11/16/2023, 03/0 07/2022, 07/28/2021, Additional history exists Colonoscopy 10/10/2030 10/10/2020, 03/2 11/2020, 01/29/2016 Colorectal Cancer Screening 10/10/2030 DTaP/Tdap/Td Vaccines (3 - Td or Tdap) 05/19/2034 05/19/2024, 07/13/2013, 03/27/2003 RSV Patients and Patients Aged 60 years or older (1 - 1-dose 75+ series) 2041 HIB Vaccines Aged Out No longer eligi ble based on patient's age to complete this topic HPV Vaccines Aged Out No longer eligi ble based on patient's age to complete this topic IPV Vaccines Aged Out No longer eligi ble based on patient's age to complete this topic Meningococcal Vaccine Aged Out No radha isha eligible based on patient's age to complete this topic RSV under 20 months Aged Out No longe r eligible based on patient's age to complete this topic Rotavirus Vaccines Aged Out No longer eligible based on patient's age to complete this topic Procedures Procedure Name Priority Date/Time Associated Diagnosis Comments CBC WITH AUTO DIFFERENTIAL Routine 07/27/2024 6:27 AM EST CBC WITH AUTO DIFFERENTIAL Routine 06/28/2024 7:43 AM EST CBC WITH AUTO DIFFERENTIAL Routine 06/07/2024 11:10 AM EST HEMOGLOBIN A1C Routine 11/16/2023 11:13 AM EDT Hyperglycemia LIPID PANEL, STANDARD Routine 11/16/2023 11:13 AM EDT Elevated triglycerides with high cholesterol HM COLONOSCOPY Routine 10/10/2020 MAMMOGRAM GENERIC Routine 03/24/2019 12: 00 AM EDT THIN PREP PAP, WITH HPV Routine 03/01/2019 12:00 AM EDT from Last 3 Months or Most Recently Relevant to Health Maintenance Results * CBC auto differential (07/27/2024 6:27 AM EST) Only the most recent of3 resultswithin the time period is included. Blood Venous blood specimen / Unknown us Historical Provider LAB BLOOD ORDERABLES Yani l Result * (ABNORMAL) Hemoglobin A1c (11/16/2023 11:13 AM EDT) Hemoglobin A1c 5.8(H) 4.8 - 5.6 % [facility] Comment: ? Prediabetes: 5.7 - 6.4 ? Diabetes: >6.4 ? Glycemic control for adults with diabetes: <7.0 Blood Venous blood specimen / Unknown 11/16/2023 11:13 AM EDT 11/16/2023 Narrative [facility] - 11/17/2023 12:05 AM EDT Performed at: ??01 - [facility] [address] ??[id number] Community Living Specialist: Kaia Gaston MD, Phone: ??[phone] us Linda Cunningham MD LAB BLOOD ORDERABLES Final Resul t Performing Organization Address City/[facility]/ZIP Co de Phone Number [facility] * (ABNORMAL) Lipid Panel, Standard (11/16/2023 11:13 AM EDT) Cholesterol, Total 163 100 - 199 mg/dL [facility] Triglycerides 220(H) 0 - 149 mg/dL [facility] HDL Cholesterol 38(L) >39 mg/dL [facility] VLDL Cholesterol Zheng 37 5 - 40 mg/dL [facility] LDL Chol Calc (NIH) 88 0 - 99 mg/dL [facility] 1 Blood Venous blood specimen / Unknown 11/16/2023 11:13 AM EDT 11/16/2023 Narrative [facility] 1 - 11/17/2023 12:05 AM EDT Performed at: ??01 - [facility] [address] ??[id number] Community Living Specialist: Kaia Gaston MD, Phone: ??[phone] us Linda Cunningham MD LAB BLOOD ORDERABLES Final Resul t Performing Organization Address [facility]/ZIP Co de Phone Number [facility] * Hm Colonoscopy (10/10/2020) Colonoscopy Normal Normal Comment:internal hemorrhoids , polyp, repeat in 5 years Historical Provider HEALTH MAINTENANCE Final Result * MAMMOGRAM: [facility] (03/24/2019 12:00 AM EDT) Anatomical Region Laterality Modality Breast Bilateral Mammography 03/24/2019 Narrative 03/24/2019 12:00 AM EDT Refer to Aaron for result details Legacy Procedure: MAMMOGRAM: [facility] ?? Procedure Note Provider, Tonya, - 11/12/2022 Refer to Aaron for result details Legacy Procedure: MAMMOGRAM: [facility] us Historical Provider IMG BI PROCEDURES Final R esult * THIN PREP PAP, WITH HPV (03/01/2019 12:00 AM EDT) Historical Provider LAB CYTOLOGY ORDERABLES F inal Result [facility] [address] [place] [address] from Last 3 Months or Most Recently Relevant to Health Maintenance Insurance [facility] , [address] [place] [address] [place] [phone] Care Teams Mounter Hand Relationship Specialty Start Date End Date Linda Cunningham MD [address] [place] [id number] PCP - General Internal Medicine 09/10/22
--- OUTSIDE RECORDS SUMMARY | 2024-09-04 11:17 | XMS_ITS | Encounter Summary ---
Author Organization [employer] Address [address] [facility] 7t [place] [address] Care Team Providers Care Foreign Service Teacher Name Role Phone Linda Cunningham MD Primary Care Provider [phone] Encounter Details Date Type Department Care Team (Late st Contact Info) Description 07/07/2024 Orders Only [facility] MEDICAL [address] [place] [address] ProviderTonya MD Social History Tobacco Use Types [...] Description 09/26/2024 2:30 PM EDT Office Visit [facility] MEDICAL [address] [place] [address] Linda Cunningham MD [address] [place] [address] documented as of this encounter Procedures Procedure Name Priority Date/Time Associated Diagnosis Comments CBC WITH AUTO DIFFERENTIAL Routine 06/28/2024 7:43 AM EST documented in this encounter Results * CBC auto differential (06/28/2024 7:43 AM EST) Blood Venous blood specimen / Unknown us Historical Provider LAB BLOOD ORDERABLES Yani l Result documented in this encounter Visit Diagnoses Not on filedocumented in this encounter Additional Health Concerns Assessment Noted Time PHQ-9 Depression Total Score: 15 024 11:05 AM EDT documented as of this encounter Care Teams Foreign Service Teacher Relationship Specialty Start Date End Date Linda Cunningham MD [address] [place] [address] PCP - General Internal Medicine 09/10/22 documented as of this encounter
--- OUTSIDE RECORDS SUMMARY | 2024-09-04 11:17 | XMS_ITS | Encounter Summary ---
Author Organization [employer] Address [address] [facility] 7t [place] [address] Care Team Providers Care Business Process Consultant Name Role Phone Linda Cunningham MD Primary Care Provider [phone] Encounter Details Date Type Department Care Team (Late st Contact Info) Description 08/04/2024 Orders Only [facility] MEDICAL [address] [place] [address] ProviderTonya MD Social History Tobacco Use Types [...] [facility] [address] [place] [address] Linda Cunningham MD [address] [place] [address] documented as of this encounter Procedures Procedure Name Priority Date/Time Associated Diagnosis Comments CBC WITH AUTO DIFFERENTIAL Routine 07/27/2024 6:27 AM EST documented in this encounter Results * CBC auto differential (07/27/2024 6:27 AM EST) Blood Venous blood specimen / Unknown us Historical Provider LAB BLOOD ORDERABLES Yani l Result documented in this encounter Visit Diagnoses Not on filedocumented in this encounter Additional Health Concerns Assessment Noted Time PHQ-9 Depression Total Score: 15 024 11:05 AM EDT documented as of this encounter Care Teams Business Process Consultant Relationship Specialty Start Date End Date Linda Cunningham MD [address] [place] [address] PCP - General Internal Medicine 09/10/22 documented as of this encounter
--- OUTSIDE RECORDS SUMMARY | 2024-09-04 11:17 | XMS_ITS | Clinical Summary ---
Author Organization [facility] Address [address] [phone] Phone Care Team Providers Care Center Machine Operator Name Role Phone Linda Cunningham MD Primary Care Provider [phone] Allergies Active Allergy Reactions Criticality Noted Date Comments Thioridazine Other (see comments) 11/05/2020 Medications ARIPiprazole (ABILIFY) 10 MG tablet Take 10 mg by mouth 1 (one) time each day 1 Active cloZAPine (CLOZARIL) 50 MG tablet TAKE 1 TABLET BY MOUTH IN THE AFTERNOON AND 3 TABLETS AT BEDTIME 1 Active sertraline (ZOLOFT) 100 MG tablet Take 100 mg by mouth 1 (one) time each day 2 Active LORazepam (ATIVAN) 2 MG tablet TAKE ONE TABLET BY MOUTH EVERY DAY NEEDED FOR ANXIETY AND AGITATION 2 Active levothyroxine (SYNTHROID, LEVOTHROID) 50 MCG tablet Take 50 mcg by mouth 1 (one) time each day 2 Active propranolol LA (INDERAL LA) 60 MG 24 hr capsule Take 60 mg by mouth 1 (one) time each day 3 Active topiramate (TOPAMAX) 100 MG tablet 3 Active glycopyrrolate (ROBINUL) 2 MG tablet Take 2 mg by mouth 4 Active metFORMIN XR (GLUCOPHAGE-XR) 500 MG 24 hr tablet Take 1 tablet by mouth 1 (one) time each day 4 Active minoxidil (LONITEN) 2.5 MG tablet Take 2.5 mg by mouth 1 (one) time each day Active Active Problems Problem Noted Date Diagnosed Date [place] adverse reaction 11/08/2020 Acute nontraumatic kidney injury 11/05/2020 Chronic kidney disease stage 3 11/05/2020 Hypothyroidism 11/05/2020 Serum creatinine above reference range Encounters Date Type Department Care Team Description 07/20/2024 4:00 PM EST Office Visit [facility] [address] [phone] Lino Griffith MD Stage 3 chronic kidney disease, not otherwise specified (HCC) (Primary Dx); [place] adverse reaction <Sequela> from Last 3 Months Family History Medical History Relation Comments Diabetes Father Relation Status Comments Father Social History Tobacco Use Types Packs/Day Years Used Date Smoking Tobacco: Former Smokeless Tobacco: Never Tobacco Cessation:Counseling Given: No Comments Unknown Sex and Gender Information Value Date Recorded Sex Assigned at Not on file Legal Sex Female 4:52 PM EST Gender Identity Not on file Sexual Orientation Not on file Last Filed Vital Signs Vital Sign Reading Time Taken Comments Blood Pressure 110/60 07/20/2024 3:49 PM EST Pulse 80 07/20/2024 3:49 PM EST Temperature - - Respiratory Rate - - Oxygen Saturation 96% 03/16/2023 1:07 PM EDT Inhaled Oxygen Concentration - - Weight 108 kg (238 lb) 07/20/2024 3:49 PM EST Height 165.1 cm (5' 5 ) 10/20/2019 12:00 PM EDT Body Mass Index 39.61 10/20/2019 12:00 PM EDT Plan of Treatment Upcoming Encounters Date Type Department Care Team (Late st Contact Info) Description 07/23/2025 4:00 PM EST Office Visit [facility] [address] [phone] Lino Griffith MD [address] [phone] Health Maintenance Due Date Last Done Comments Breast Cancer Screening 1966 Pneumococcal Vaccine: Pediat rics (0 to 5 Years) and At-Risk Patients (6 to 64 Years) (1 of 2 - PCV) 1972 Hepatitis B Vaccine (1 of 3 - 19+ 3-dose series) 1985 Colorectal Cancer Screening: Annual FOBT 2015 Colorectal Cancer Screening: Colonoscopy 2015 Colorectal Cancer Screening: Sigmoidoscopy 2015 Influenza Vaccine (#1) 2024 3, 05/22/2019, 08/05/2012, Additional history exists Insurance [facility] MEDICARE MEDICARE [facility] Care Teams Center Machine Operator Relationship Specialty Start Date End Date Linda Cunningham MD [address] [place] [address] PCP - General 07/29/20
--- OUTSIDE RECORDS SUMMARY | 2024-09-04 11:17 | XMS_ITS | Encounter Summary ---
Author Organization [employer] Address [address] [facility] 7t [place] [address] Care Team Providers Care Cloud Developer Name Role Phone Linda Cunningham MD Primary Care Provider [phone] Encounter Details Date Type Department Care Team (Late st Contact Info) Description 06/11/2024 Orders Only [facility] [address] [place] [address] Linda Cunningham MD [address] [place] [address] Social History Tobacco Use Types Packs/Day Years [...] Description 09/26/2024 2:30 PM EDT Office Visit [facility] MEDICAL [address] [place] [address] Linda Cunningham MD [address] [place] [address] documented as of this encounter Procedures Procedure Name Priority Date/Time Associated Diagnosis Comments CBC WITH AUTO DIFFERENTIAL Routine 06/07/2024 11:10 AM EST documented in this encounter Results * CBC auto differential (06/07/2024 11:10 AM EST) Blood Venous blood specimen / Unknown us Linda Cunningham MD LAB BLOOD ORDERABLES Final Resul t documented in this encounter Visit Diagnoses Not on filedocumented in this encounter Additional Health Concerns Assessment Noted Time PHQ-9 Depression Total Score: 15 024 11:05 AM EDT documented as of this encounter Care Teams Cloud Developer Relationship Specialty Start Date End Date Linda Cunningham MD [address] [place] [address] PCP - General Internal Medicine 09/10/22 documented as of this encounter
[2024-09-04 11:21] LABS: MANUAL DIFF FLAG NO
[2024-09-04 11:33] LABS: Basophils Absolute Auto 0.2 X10*3/uL (0.0-0.2); Basophils Percent Auto 1.3 % (0-2); Eosinophils Percent Auto 8.3 % (0-4); Hematocrit 45.4 % (37.0-47.0); Hemoglobin 15.1 g/dl (12.0-16.0); Imm Gran Abs Auto 0.08 X10*3/uL (0.00-0.03); Imm Gran Pct Auto 0.6 % (0.0-0.4); Lymphocytes Absolute Auto 4.1 X10*3/uL (1.2-4.9); Lymphocytes Percent Auto 33.5 % (20-40); Mean Corpuscular HGB Conc 33.3 g/dl (31.0-35.0); Mean Corpuscular Hemoglobin 30.2 pg (27.0-33.0); Mean Corpuscular Volume 90.8 fL (80.0-98.0); Mean Platelet Volume 10.1 fL (9.4-12.3); Monocytes Absolute Auto 1.1 X10*3/uL (0.1-1.2); Monocytes Percent Auto 8.5 % (2-11); Neutrophils Absolute Auto 5.9 x10*3/uL (2.0-8.3); Neutrophils Percent Auto 47.8 % (45-73); Platelet Count 445 X10*3/uL (160-400); Red Cell Distribution Width 13.8 % (11.0-16.0); White Blood Count 12.3 X10*3/uL (4.8-10.8)
== END 2024-09-04 11:13 | disposition home or self-care (01) ==
LOC: HO.LAB 11:12
PROVIDERS: PCP Internal Medicine; Visit Provider Psychiatry & Neurology Psychiatry
DX: Z79.899 Other long term (current) drug therapy (principal)
CPT/HCPCS: 36415; 85025

== ENCOUNTER 2024-09-22 13:00 | Outpatient (REF) | payer OTHER, MEDICARE, SELFPAY ==
[2024-09-22 13:13] LABS: MANUAL DIFF FLAG NO
[2024-09-22 14:11] LABS: Basophils Absolute Auto 0.1 X10*3/uL (0.0-0.2); Eosinophils Absolute Auto 0.5 X10*3/uL (0.0-0.4); Eosinophils Percent Auto 4.7 % (0-4); Hematocrit 43.7 % (37.0-47.0); Hemoglobin 14.5 g/dl (12.0-16.0); Imm Gran Pct Auto 0.9 % (0.0-0.4); Lymphocytes Absolute Auto 3.8 X10*3/uL (1.2-4.9); Mean Corpuscular HGB Conc 33.2 g/dl (31.0-35.0); Mean Corpuscular Volume 90.5 fL (80.0-98.0); Mean Platelet Volume 10.8 fL (9.4-12.3); Monocytes Percent Auto 8.5 % (2-11); Neutrophils Percent Auto 51.9 % (45-73); Platelet Count 352 X10*3/uL (160-400); Red Blood Count 4.83 X10*6/uL (4.20-5.50); Red Cell Distribution Width 13.6 % (11.0-16.0); White Blood Count 11.6 X10*3/uL (4.8-10.8)
--- OUTSIDE RECORDS SUMMARY | 2024-09-22 14:41 | XMS_ITS | Encounter Summary ---
Author Organization [employer] Address [address] [facility] 7t [place] [address] Care Team Providers Care Upholstery Cutter Name Role Phone Linda Cunningham MD Primary Care Provider [phone] Encounter Details Date Type Department Care Team (Late st Contact Info) Description 08/04/2024 Orders Only [facility] MEDICAL [address] [place] [address] ProviderTonya MD Social History Tobacco Use Types [...] Description 09/26/2024 2:30 PM EDT Office Visit [facility] MEDICAL [address] [place] [address] Linda Cunningham MD [address] [place] [address] documented as of this encounter Procedures Procedure [...] documented as of this encounter Care Teams Upholstery Cutter Relationship Specialty Start Date End Date Linda Cunningham MD [address] [place] [address] PCP - General Internal Medicine 09/10/22 documented as of this encounter
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
--- OUTSIDE RECORDS SUMMARY | 2024-09-22 14:41 | XMS_ITS | Encounter Summary ---
Author Organization [employer] Address [address] [facility] 7t [place] [address] Care Team Providers Care Juice Bar Team Member Name Role Phone Linda Cunningham MD Primary Care Provider [phone] Encounter Details Date Type Department Care Team (Late st Contact Info) Description 06/11/2024 Orders Only [place] [facility] [address] [place] [address] Linda Cunningham MD [address] [place] [address] Social History Tobacco Use Types Packs/Day Years [...] Description 09/26/2024 2:30 PM EDT Office Visit [facility] MEDICAL [address] [place] [address] Linda Cunningham MD [address] [place] [address] documented as of this encounter Procedures Procedure [...] documented as of this encounter Care Teams Juice Bar Team Member Relationship Specialty Start Date End Date Linda Cunningham MD [address] [place] [address] PCP - General Internal Medicine 09/10/22 documented as of this encounter
--- OUTSIDE RECORDS SUMMARY | 2024-09-22 14:41 | XMS_ITS | Encounter Summary ---
Author Organization [employer] Address 75 [facility] 7t [place] [address] Care Team Providers Care Grease Packer Name Role Phone Linda Cunningham MD Primary Care Provider [phone] Encounter Details Date Type Department Care Team (Late st Contact Info) Description 09/06/2024 Orders Only [facility] MEDICAL [address] [place] [address] ProviderTonya MD Social History Tobacco Use Types [...] Description 09/26/2024 2:30 PM EDT Office Visit [facility] MEDICAL [address] [place] [address] Linda Cunningham MD [address] [place] [address] documented as of this encounter Procedures Procedure Name Priority Date/Time Associated Diagnosis Comments CBC WITH AUTO DIFFERENTIAL Routine 09/04/2024 4:42 PM EST documented in this encounter Results * CBC auto differential (09/04/2024 4:42 PM EST) Blood Venous blood specimen / Unknown us Historical Provider LAB BLOOD ORDERABLES Yani l Result documented in this encounter Visit Diagnoses Not on filedocumented in this encounter Additional Health Concerns Assessment Noted Time PHQ-9 Depression Total Score: 15 024 11:05 AM EDT documented as of this encounter Care Teams Grease Packer Relationship Specialty Start Date End Date Linda Cunningham MD [address] [place] [address] PCP - General Internal Medicine 09/10/22 documented as of this encounter
--- OUTSIDE RECORDS SUMMARY | 2024-09-22 14:41 | XMS_ITS | Encounter Summary ---
Author Organization [employer] Address 75 [facility] 7t [place] [address] Care Team Providers Care City Jailer Name Role Phone Linda Cunningham MD Primary Care Provider [phone] Encounter Details Date Type Department Care Team (Late st Contact Info) Description 07/07/2024 Orders Only [facility] MEDICAL [address] [place] [address] ProviderTonya MD Social History Tobacco Use Types [...] Description 09/26/2024 2:30 PM EDT Office Visit [facility] MEDICAL [address] [place] [address] Linda Cunningham MD [address] [place] [address] documented as of this encounter Procedures Procedure [...] documented as of this encounter Care Teams City Jailer Relationship Specialty Start Date End Date Linda Cunningham MD [address] [place] [address] PCP - General Internal Medicine 09/10/22 documented as of this encounter
--- OUTSIDE RECORDS SUMMARY | 2024-09-22 14:41 | XMS_ITS | Encounter Summary ---
Author Organization [employer] Address 75 [facility] 7t [place] [address] Care Team Providers Care Utilization Specialist Name Role Phone Linda Cunningham MD Primary Care Provider [phone] Encounter Details Date Type Department Care Team (Late st Contact Info) Description 05/10/2024 Orders Only [facility] MEDICAL [address] [place] [address] ProviderTonya MD Social History Tobacco Use Types [...] Description 09/26/2024 2:30 PM EDT Office Visit [facility] MEDICAL [address] [place] [address] Linda Cunningham MD [address] [place] [address] documented as of this encounter Procedures Procedure [...] documented as of this encounter Care Teams Utilization Specialist Relationship Specialty Start Date End Date Linda Cunningham MD [address] [place] [address] PCP - General Internal Medicine 09/10/22 documented as of this encounter
--- OUTSIDE RECORDS SUMMARY | 2024-09-22 14:41 | XMS_ITS | Clinical Summary ---
Author Organization [facility] Address [address] [phone] Phone Care Team Providers Care An/Sqq 89([id number] Sonar System Journeyman Name Role Phone Linda Cunningham MD Primary Care Provider Allergies Active Allergy Reactions Criticality Noted Date [...] Active Problems Problem Noted Date Diagnosed Date [place] adverse reaction 11/08/2020 Acute nontraumatic kidney injury 11/05/2020 Chronic kidney disease stage 3 11/05/2020 Hypothyroidism 11/05/2020 Serum creatinine above reference range Encounters Date Type Department Care Team Description 07/20/2024 4:00 PM EST Office Visit [facility] [address] [phone] Lino Griffith MD Stage 3 chronic kidney disease, not otherwise specified (HCC) (Primary Dx); [place] adverse reaction <Sequela> from Last 3 Months [...] Office Visit [facility] [address] [phone] Lino Griffith MD [address] [phone] Health Maintenance Due Date Last Done Comments [...] 3, 05/22/2019, 08/05/2012, Additional history exists Insurance [facility] MEDICARE MEDICARE [facility] Care Teams An/Sqq 89(V)15 Sonar System Journeyman Relationship Specialty Start Date End Date Linda Cunningham MD [address] [place] [address] PCP - General 07/29/20
== END 2024-09-22 13:01 | disposition home or self-care (01) ==
LOC: HO.LAB 13:00
PROVIDERS: PCP Internal Medicine; Visit Provider Psychiatry & Neurology Psychiatry
DX: Z79.899 Other long term (current) drug therapy (principal)
CPT/HCPCS: 36415; 85025

== ENCOUNTER 2024-10-03 14:33 | Outpatient (AMB) | payer OTHER, MEDICARE, SELFPAY ==
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
== END 2024-10-03 16:35 | disposition home or self-care (01) ==
LOC: HO.HOP 14:33
PROVIDERS: PCP Internal Medicine; Visit Provider Psychiatry & Neurology Psychiatry
DX: F43.10 Post-traumatic stress disorder, unspecified (principal); F42.9 Obsessive-compulsive disorder, unspecified; F31.9 Bipolar disorder, unspecified
CPT/HCPCS: 90833; 99214

== ENCOUNTER → 2024-10-27 10:52 | Outpatient (REF) | payer OTHER, MEDICARE, SELFPAY ==
--- NOTE | 2024-10-27 10:58 | ECG_ITS ---
Test Reason : [facility]APHY Blood Pressure : */* mmHG Vent. Rate : 81 BPM Atrial Rate : 81 BPM P-R Int : 172 ms QRS Dur : 86 ms QT Int : 390 ms P-R-T Axes : 55 -1 43 degrees QTcB Int : 453 ms Normal sinus rhythm Nonspecific T wave abnormality Abnormal ECG When compared with ECG of 09-Jan-2022 08:49, No significant change was found Referred By: Andre Burk Electronically Signed By: Refugio Mascorro
[2024-10-27 11:10] LABS: MANUAL DIFF FLAG NO
[2024-10-27 11:25] LABS: Basophils Absolute Auto 0.1 X10*3/uL (0.0-0.2); Basophils Percent Auto 1.1 % (0-2); Eosinophils Absolute Auto 0.4 X10*3/uL (0.0-0.4); Eosinophils Percent Auto 4.1 % (0-4); Hematocrit 40.6 % (37.0-47.0); Hemoglobin 13.6 g/dl (12.0-16.0); Imm Gran Pct Auto 0.9 % (0.0-0.4); Lymphocytes Absolute Auto 3.7 X10*3/uL (1.2-4.9); Lymphocytes Percent Auto 34.5 % (20-40); Mean Corpuscular HGB Conc 33.5 g/dl (31.0-35.0); Mean Corpuscular Hemoglobin 30.2 pg (27.0-33.0); Mean Corpuscular Volume 90.2 fL (80.0-98.0); Mean Platelet Volume 10.2 fL (9.4-12.3); Monocytes Percent Auto 9.7 % (2-11); Neutrophils Absolute Auto 5.3 x10*3/uL (2.0-8.3); Neutrophils Percent Auto 49.7 % (45-73); Platelet Count 317 X10*3/uL (160-400); Red Cell Distribution Width 13.4 % (11.0-16.0); White Blood Count 10.7 X10*3/uL (4.8-10.8)
--- OUTSIDE RECORDS SUMMARY | 2024-10-27 11:51 | XMS_ITS | Encounter Summary ---
Author Organization [employer] Address [address] [facility] 7t [place] [address] Care Team Providers Care Aircraft Inspector Name Role Phone Linda Cunningham MD Primary Care Provider [phone] Encounter Details Date Type Department Care Team (Late st Contact Info) Description 06/11/2024 Orders Only [facility] [address] [place] [address] Linda Cunningham MD [address] [place] [address] Social History Tobacco Use Types Packs/Day Years [...] Care Team (Late st Contact Info) Description 11/21/2024 3:00 PM EDT Office Visit [facility] MEDICAL [address] [place] [address] Linda Cunningham MD [address] [place] [address] 12/06/2024 11:00 AM EDT Clinical Support [facility] NUTRITION [address] [place] [address] Abby Velazquez, GILL [address] [place] [address] 01/18/2025 10:00 AM EDT Office Visit [address] [address] Linda Cunningham MD [address] [place] [address] documented as of this encounter Procedures Procedure [...] documented as of this encounter Care Teams Aircraft Inspector Relationship Specialty Start Date End Date Linda Cunningham MD [address] [place] [id number] PCP - General Internal Medicine 09/10/22 documented as of this encounter
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
--- OUTSIDE RECORDS SUMMARY | 2024-10-27 11:51 | XMS_ITS | Encounter Summary ---
Author Organization [employer] Address [address] [facility] 7t [place] [address] Care Team Providers Care Claims Adjuster Name Role Phone Linda Cunningham MD Primary Care Provider [phone] Encounter Details Date Type Department Care Team (Late st Contact Info) Description 07/07/2024 Orders Only [facility] MEDICAL [address] [place] [address] Provider, MD Tonya Social History Tobacco Use Types Packs/Day Years [...] Description 11/21/2024 3:00 PM EDT Office Visit [facility] [address] [place] [address] Linda Cunningham MD [address] [place] [address] 12/06/2024 11:00 AM EDT Clinical Support [facility] [address] [place] [address] Abby Velazquez, GILL [address] [place] [address] 01/18/2025 10:00 AM EDT Office Visit [facility] [address] [place] [address] Linda Cunningham MD [address] [place] [address] documented as of this encounter Procedures Procedure [...] documented as of this encounter Care Teams Claims Adjuster Relationship Specialty Start Date End Date Linda Cunningham MD [address] [place] [address] PCP - General Internal Medicine 09/10/22 documented as of this encounter
--- OUTSIDE RECORDS SUMMARY | 2024-10-27 11:51 | XMS_ITS | Encounter Summary ---
Author Organization [employer] Address [address] [facility] [address] [place] [address] Care Team Providers Care Waiter/Waitress Name Role Phone Linda Cunningham MD Primary Care Provider [phone] Encounter Details Date Type Department Care Team (Late st Contact Info) Description 08/04/[address] [facility] MEDICAL [address] [place] [address] Provider, MD Tonya Social History Tobacco Use [...] Description 11/21/2024 3:00 PM EDT Office Visit [facility] [address] [place] [address] Linda Cunningham MD [address] [place] [address] 12/06/2024 11:00 AM EDT Clinical Support [facility] [address] [place] [address] Abby Velazquez, GILL [address] [place] [address] 01/18/2025 10:00 AM EDT Office Visit [facility] [address] [place] [address] Linda Cunningham MD [address] [place] [address] documented as of this encounter Procedures Procedure [...] documented as of this encounter Care Teams Waiter/Waitress Relationship Specialty Start Date End Date Linda Cunningham MD [address] [place] [address] PCP - General Internal Medicine 09/10/22 documented as of this encounter
--- OUTSIDE RECORDS SUMMARY | 2024-10-27 11:51 | XMS_ITS | Encounter Summary ---
Author Organization [employer] Address [address] [facility] [address] [place] [address] Care Team Providers Care Assembler Filters Name Role Phone Linda Cunningham MD Primary Care Provider [phone] Encounter Details Date Type Department Care Team (Late st Contact Info) Description 09/06/2024 Orders Only [facility] MEDICAL [address] [place] [address] Provider, MD Tonya Social History Tobacco Use [...] Description 11/21/2024 3:00 PM EDT Office Visit [facility] [address] [place] [address] Linda Cunningham MD [address] [place] [address] 12/06/2024 11:00 AM EDT Clinical Support [facility] [address] [place] [address] Abby Velazquez, GILL [address] [place] [address] 01/18/2025 10:00 AM EDT Office Visit [facility] [address] [place] [address] Linda Cunningham MD [address] [place] [address] documented as of this encounter Procedures Procedure [...] documented as of this encounter Care Teams Assembler Filters Relationship Specialty Start Date End Date Linda Cunningham MD [address] [place] [address] PCP - General Internal Medicine 09/10/22 documented as of this encounter
--- OUTSIDE RECORDS SUMMARY | 2024-10-27 11:51 | XMS_ITS | Encounter Summary ---
Author Organization [employer] Address [address] [facility] [address] [place] [address] Care Team Providers Care Digital Marketing Analyst Name Role Phone Linda Cunningham MD Primary Care Provider [phone] Encounter Details Date Type Department Care Team (Late st Contact Info) Description 05/10/2024 Orders Only [facility] MEDICAL [address] [place] [address] Provider, MD Tonya Social History Tobacco Use [...] Description 11/21/2024 3:00 PM EDT Office Visit [facility] [address] [place] [address] Linda Cunningham MD [address] [place] [address] 12/06/2024 11:00 AM EDT Clinical Support [facility] [address] [place] [address] Abby Velazquez, GILL [address] [place] [address] 01/18/2025 10:00 AM EDT Office Visit [facility] [address] [place] [address] Linda Cunningham MD [address] [place] [address] documented as of this encounter Procedures Procedure [...] Noted Time PHQ-9 Depression Total Score: 15 10/05/ 024 11:05 AM EDT documented as of this encounter Care Teams Digital Marketing Analyst Relationship Specialty Start Date End Date Linda Cunningham MD [address] [place] [address] PCP - General Internal Medicine 09/10/22 documented as of this encounter
--- OUTSIDE RECORDS SUMMARY | 2024-10-27 11:51 | XMS_ITS | Clinical Summary ---
Author Organization [email or web address] Address [address] [facility] 7t [place] [address] Care Team Providers Care Tax Expert Name Role Phone Linda Cunningham MD Primary Care Provider [phone] Allergies Active Allergy Reactions Criticality Noted Date Comments Thioridazine High 11/05/2020 Other reaction(s): cardiac arrest in combo w/SSRI, Other (see comments) Medications * This document contains information received from the source organization and may not represent a complete record from that organization. Respiratory Therapy Supplies (CareTouch CPAP & BIPAP Hose) misc 8-20 mm Hg with heated humidification nightly 03/13/20 19 Active clonazePAM (KlonoPIN) 1 MG tablet Take [...] if needed each day. 02/13/20 22 Active silver sulfADIAZINE (Silvadene) 1 % cream [...] metFORMIN XR (Glucophage-XR) 500 MG 24 hr tabletIndications :Obesity (BMI 35.0-39.9 without comorbidity) TAKE ONE TABLET BY MOUTH EVERY DAY. DO NOT CRUSH, CHEW, OR SPLIT 90 tablet 3 01/23/20 24 Active omeprazole (PriLOSEC) [address] capsule Take 1 capsule (20 mg) by mouth Once per day. 90 capsule 3 05/19/20 24 025 Active Additional Information Patient not taking.Reported on 09/26/2024 propranolol LA (Inderal LA) 60 MG 24 hr capsule Take 1 capsule (60 mg) by mouth Once per day. 90 capsule 3 05/19/20 24 025 Active levothyroxine (Synthroid, Levoxyl) 50 MCG tabletIndications :Acquired hypothyroidism Take 1 tablet (50 mcg) by mouth Once per day. 90 tablet 3 09/07/19 25 026 Active minoxidil (Loniten) 2.5 MG tablet TAKE ONE TABLET BY MOUTH EVERY DAY 30 tablet 2 09/26/19 25 Active Additional Information Patient taking differently:2.5 mg Oral Daily,Patient is taking 1/2 a tab, Reported on 09/26/2024 ARIPiprazole (Abilify) 15 MG tablet Take 1 tablet by mouth Once per day. 09/14/19 25 Active LORazepam (Ativan) 1 MG tablet Take 1 tablet by mouth every 6 (six) hours during the day. 06/28/20 24 Active sertraline (Zoloft) 100 MG tablet 09/26/19 25 Active acyclovir (Zovirax) 5 % ointment Apply topically 6 (six) times a day for 5 days. Space applications every 3 hours. 30 g 2 09/27/19 25 025 Active Problems Problem Noted Date Diagnosed Date [...] organization. Date Type Department Care Team Description 09/26/2024 2:30 PM EDT Office Visit [address] [address] Linda Cunningham MD Acquired hypothyroidism (Primary Dx); Vitamin D deficiency; Hyperglycemia 09/24/[address] [address] Linda Cunningham MD 09/07/[address] [address] Linda Cunningham MD Acquired hypothyroidism 09/06/2024 Orders Only [address] [address] ProviderTonya MD 08/04/2024 Orders Only [address] [address] Provider, MD Tonya from Last 3 Months Immunizations Name Administration [...] Sign Reading Time Taken Comments Blood Pressure 109/70 09/26/2024 2:46 PM EDT Pulse 72 09/26/2024 2:46 PM EDT Temperature 36.6 ??C (97.9 ??F) 09/26/2024 2:46 PM ED T Respiratory Rate 16 09/26/2024 2:46 PM EDT Oxygen Saturation 96% 09/26/2024 2:46 PM EDT Inhaled Oxygen Concentration - - Weight 106 kg (233 lb) 09/26/2024 2:46 PM EDT Height 165.1 cm (5' 5 ) 09/26/2024 2:46 PM EDT Body Mass Index 38.77 09/26/2024 2:46 PM EDT Plan of Treatment Upcoming Encounters Date Type Department Care Team (Late st Contact Info) Description 11/21/2024 3:00 PM EDT Office Visit [facility] MEDICAL [address] [place] [address] Linda Cunningham MD [address] [place] [address] 12/06/2024 11:00 AM EDT Clinical Support [facility] NUTRITION [address] [place] [address] Abby Velazquez, GILL [address] [place] [address] 01/18/2025 10:00 AM EDT Office Visit [facility] MEDICAL [address] [place] [address] Linda Cunningham MD [address] [place] [address] Health Maintenance Due Date Last Done Comments [...] 05/07/2023, 04/08/2020, Additional history exists Depression Monitoring 04/07/2024 10/06/2023, 024 Depression Screening 10/05/2024 10/06/2023, 10/06/19 Diabetes: Hemoglobin A1C 09/26/2025 025, 11/16/2023, 09/16/2022, Additional history exists Tobacco Screening 09/26/2025 09/26/2024 Lipid Panel 11/15/2028 11/16/2023, 03/0 07/2022, 07/28/2021, [...] Procedure Name Priority Date/Time Associated Diagnosis Comments VITAMIN D 25 HYDROXY Routine 09/26/2024 3:13 PM EDT Vitamin D deficiency COMPREHENSIVE METABOLIC PANEL Routine 09/26/2024 3:13 PM EDT Hyperglycemia HEMOGLOBIN A1C Routine 09/26/2024 3:13 PM EDT Hyperglycemia TSH W/REFLEX TO FT4 Routine 09/26/2024 3 :13 PM EDT Acquired hypothyroidism CBC WITH AUTO DIFFERENTIAL Routine 09/04/2024 4:42 PM EST LIPID PANEL, STANDARD Routine 11/16/2023 11:13 AM EDT Elevated triglycerides with high cholesterol HM COLONOSCOPY Routine 10/10/2020 MAMMOGRAM GENERIC Routine 03/24/2019 12: 00 AM EDT THIN PREP PAP, WITH HPV Routine 03/01/2019 12:00 AM EDT from Last 3 Months or Most Recently Relevant to Health Maintenance Results * TSH with Reflex to Free T4 (09/26/2024 3:13 PM EDT) TSH 1.430 0.450 - 4.500 uIU/mL [facility] 1 Blood 09/26/2024 3:13 PM EDT 09/26/2024 Narrative [facility] 1 - 09/27/2024 6:05 AM EDT Performed at: ??01 - [facility] [address] ??[id number] Economic Consultant: Kaia Gaston MD, Phone: ??[phone] us Linda Cunningham MD LAB BLOOD ORDERABLES Final Resul t [facility] 1 * Vitamin D 25 hydroxy 605552 (09/26/2024 3:13 PM EDT) Vitamin D, 25-OH, Total 41.3 30.0 - 100.0 ng/mL [facility] 1 Comment: Vitamin D deficiency has been defined by the [place] of Medicine and an Endocrine Society practice guideline as a level of serum 25-OH vitamin D less than 20 ng/mL (1,2). The Endocrine Society went on to further define vitamin D insufficiency as a level between 21 and 29 ng/mL (2). 1. IOM ([place] of Medicine). 2010. Dietary reference ?? intakes for calcium and D. Lal [place]: The ?? National Academies Press. 2. Jinny MF, Barbara NC, Enrique ZHANG, et al. ?? Evaluation, treatment, and prevention of vitamin D ?? deficiency: an Endocrine Society clinical practice ?? guideline. JCEM. 2010; 96(2):1911-30. Blood Venous blood specimen / Unknown 09/26/2024 3:13 PM EDT 09/26/2024 Narrative [facility] 1 - 09/27/2024 6:05 AM EDT Performed at: ??01 - [facility] [address] ??[id number] Economic Consultant: Kaia Gaston MD, Phone: ??[phone] Linda Cunningham MD LAB BLOOD ORDERABLES Final Resul t Performing Organization Address [facility] [address]/[facility] de Phone Number [facility] 1 * (ABNORMAL) Hemoglobin A1c (09/26/2024 3:13 PM EDT) [facility] Hemoglobin A1c 6.1(H) 4.8 - 5.6 % [facility] 1 Comment: ? Prediabetes: 5.7 - 6.4 ? Diabetes: >6.4 ? Glycemic control for adults with diabetes: <7.0 Blood Venous blood specimen / Unknown 09/26/2024 3:13 PM EDT 09/26/2024 Narrative [facility] 1 - 09/27/2024 6:05 AM EDT Performed at: ??01 - [facility] [address] ??[id number] Economic Consultant: Kaia Gaston MD, Phone: ??[phone] Linda Cunningham MD LAB BLOOD ORDERABLES Final Resul t Performing Organization Address [facility] [address]/[facility] de Phone Number [facility] 1 * (ABNORMAL) Comprehensive metabolic panel (09/26/2024 3:13 PM EDT) Glucose 100(H) 70 - 99 mg/dL [facility] 1 Urea Nitrogen (BUN) 14 6 - 24 mg/dL [facility] 1 Creatinine, Serum 1.14(H) 0.57 - 1.00 mg/dL [facility] 1 eGFR 56(L) >59 mL/min/1.7 3 [facility] 1 BUN/Creatinine Ratio 12 9 - 23 [facility] 1 Sodium 139 134 - 144 mmol/L [facility] 1 Potassium 4.3 3.5 - 5.2 mmol/L [facility] 1 Chloride 104 96 - 106 mmol/L [facility] 1 Anion Gap 17.0 10.0 - 18.0 mmol/L [facility] 1 Carbon Dioxide 18(L) 20 - 29 mmol/L [facility] 1 Calcium 10.0 8.7 - 10.2 mg/dL [facility] 1 Protein, Total 7.5 6.0 - 8.5 g/dL [facility] 1 Albumin 4.3 3.8 - 4.9 g/dL [facility] 1 Globulin 3.2 1.5 - 4.5 g/dL [facility] 1 Bilirubin, Total <0.2 0.0 - 1.2 mg/dL [facility] 1 Alkaline Phosphatase 97 44 - 121 IU/L [facility] 1 AST 26 0 - 40 IU/L [facility] 1 ALT 30 0 - 32 IU/L [facility] 1 Blood Venous blood specimen / Unknown 09/26/2024 3:13 PM EDT 09/26/2024 Narrative [facility] 1 - 09/27/2024 6:05 AM EDT Performed at: ??01 - [facility] [address] ??[id number] Economic Consultant: Kaia Gaston MD, Phone: ??[phone] us Linda Cunningham MD LAB BLOOD ORDERABLES Final Resul t [facility] 1 * CBC auto differential (09/04/2024 4:42 PM EST) Blood Venous blood specimen / Unknown Historical Provider LAB BLOOD ORDERABLES Yani l Result * (ABNORMAL) Lipid Panel, Standard (11/16/2023 11:13 [...] AM EDT Performed at: ??01 - [facility] [address] ??[id number] Economic Consultant: Kaia Gaston MD, Phone: ??[phone] Linda Cunningham MD LAB BLOOD ORDERABLES Final Resul t [facility] 1 * Hm Colonoscopy (10/10/2020) Pathologist [facility] Colonoscopy Normal Normal Comment:internal hemorrhoids , polyp, repeat in 5 years Historical Provider HEALTH MAINTENANCE Final Result * MAMMOGRAM: [facility] (03/24/2019 12:00 AM EDT) Anatomical Region Laterality Modality Breast Bilateral Mammography 03/24/2019 Narrative 03/24/2019 12:00 AM EDT [facility] Procedure: MAMMOGRAM: [facility] ?? Procedure Note Provider, Tonya, - 11/12/2022 Refer to Aaron for result details Legacy Procedure: MAMMOGRAM: [facility] Historical Provider IMG BI PROCEDURES Final R esult * THIN PREP PAP, WITH HPV (03/01/2019 12:00 AM EDT) us Historical Provider LAB CYTOLOGY ORDERABLES F inal Result [facility] [address] [place] [address] from Last 3 Months or Most Recently Relevant to Health Maintenance Insurance , [address] [address] MEDICARE Care Teams Tax Expert Relationship Specialty Start Date End Date Linda Cunningham MD [address] [place] [id number] PCP - General Internal Medicine 09/10/22
== END ==
LOC: HO.CARD 10:52
PROVIDERS: PCP Internal Medicine; Visit Provider Psychiatry & Neurology Psychiatry
DX: Z79.899 Other long term (current) drug therapy (principal); G47.33 Obstructive sleep apnea (adult) (pediatric)
CPT/HCPCS: 36415; 85025; 93005

== ENCOUNTER → 2024-10-27 10:58 | Outpatient (BNV) | payer OTHER, MEDICARE, SELFPAY | PROVIDERS: PCP Internal Medicine; Visit Provider Internal Medicine Cardiovascular Disease | DX: R94.31 Abnormal electrocardiogram [ECG] [EKG] (principal) | CPT/HCPCS: 93010 ==

== ENCOUNTER 2024-11-15 14:23 | Outpatient (AMB) | payer OTHER, MEDICARE, SELFPAY ==
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
--- OUTSIDE RECORDS SUMMARY | 2024-11-15 15:43 | XMS_ITS | Encounter Summary ---
Author Organization [employer] Address [address] [facility] 7t [place] [address] Care Team Providers Care Chain Maker Loom Control Name Role Phone Linda Cunningham MD Primary Care Provider [phone] Encounter Details Date Type Department Care Team (Late st Contact Info) Description 10/30/2024 Orders Only [facility] [address] [place] [address] Linda Cunningham MD [address] [place] [address] Social History Tobacco Use Types Packs/Day Years [...] Description 11/21/2024 3:00 PM EDT Office Visit [facility] MEDICAL [address] [place] [address] Linda Cunningham MD [address] [place] [address] 12/06/2024 11:00 AM EDT Clinical Support [facility] NUTRITION [address] [place] [address] Abby Velazquez, GILL [address] [place] [address] 01/18/2025 10:00 AM EDT Office Visit [address] [address] Linda Cunningham MD [address] [place] [address] documented as of this encounter Procedures Procedure Name Priority Date/Time Associated Diagnosis Comments ECG 12-LEAD Routine 10/27/2024 9:31 AM EDT documented in this encounter Results * ECG 12 lead (10/27/2024 9:31 AM EDT) us Linda Cunningham MD ECG ORDERABLES Final Result documented in this encounter Visit Diagnoses Not on filedocumented in this encounter Additional Health Concerns Assessment Noted Time PHQ-9 Depression Total Score: 15 024 11:05 AM EDT documented as of this encounter Care Teams Chain Maker Loom Control Relationship Specialty Start Date End Date Linda Cunningham MD [address] [place] [address] PCP - General Internal Medicine 09/10/22 documented as of this encounter
--- OUTSIDE RECORDS SUMMARY | 2024-11-15 15:43 | XMS_ITS | Encounter Summary ---
Author Organization [employer] Address [address] [facility] 7t [place] [address] Care Team Providers Care Turn Down Worker Name Role Phone Linda Cunningham MD Primary Care Provider [phone] Encounter Details Date Type Department Care Team (Late st Contact Info) Description 09/06/[address] [facility] MEDICAL [address] [place] [address] Provider, MD Tonya Social History Tobacco Use [...] Description 11/21/2024 3:00 PM EDT Office Visit [facility] [address] [place] [address] Linda Cunningham MD [address] [place] [address] 12/06/2024 11:00 AM EDT Clinical Support [facility] [address] [place] [address] Abby Velazquez, GILL [address] [place] [address] 01/18/2025 10:00 AM EDT Office Visit [facility] [address] [place] [address] Linda Cunningham MD [address] [place] [address] documented as of this encounter Procedures Procedure [...] documented as of this encounter Care Teams Turn Down Worker Relationship Specialty Start Date End Date Linda Cunningham MD [address] [place] [address] PCP - General Internal Medicine 09/10/22 documented as of this encounter
--- OUTSIDE RECORDS SUMMARY | 2024-11-15 15:43 | XMS_ITS | Encounter Summary ---
Author Organization [employer] Address [address] [facility] 7t [place] [address] Care Team Providers Care Rivet Maker Name Role Phone Linda Cunningham MD Primary Care Provider [phone] Encounter Details Date Type Department Care Team (Late st Contact Info) Description 05/10/[address] [facility] [place] [facility] [address] [place] [address] Provider, MD Tonya Social History Tobacco Use [...] Description 11/21/2024 3:00 PM EDT Office Visit [facility] [address] [place] [address] Linda Cunningham MD [address] [place] [address] 12/06/2024 11:00 AM EDT Clinical Support [facility] [address] [place] [address] Abby Velazquez, GILL [address] [place] [address] 01/18/2025 10:00 AM EDT Office Visit [facility] [address] [place] [address] Linda Cunningham MD [address] [place] [address] documented as of this encounter Procedures Procedure [...] documented as of this encounter Care Teams Rivet Maker Relationship Specialty Start Date End Date Linda Cunningham MD [address] [place] [address] PCP - General Internal Medicine 09/10/22 documented as of this encounter
--- OUTSIDE RECORDS SUMMARY | 2024-11-15 15:43 | XMS_ITS | Encounter Summary ---
Author Organization [employer] Address [address] [facility] 7t [place] [address] Care Team Providers Care Optic Fibre Drawer Name Role Phone Linda Cunningham MD Primary Care Provider [phone] Encounter Details Date Type Department Care Team (Late st Contact Info) Description 07/07/2024 Orders Only [facility] MEDICAL [address] [place] [address] Provider, MD Tonya Social History Tobacco Use [...] Description 11/21/2024 3:00 PM EDT Office Visit [facility] [address] [place] [address] Linda Cunningham MD [address] [place] [address] 12/06/2024 11:00 AM EDT Clinical Support [facility] [address] [place] [address] Abby Velazquez, GILL [address] [place] [address] 01/18/2025 10:00 AM EDT Office Visit [facility] [address] [place] [address] Linda Cunningham MD [address] [place] [address] documented as of this encounter Procedures Procedure [...] documented as of this encounter Care Teams Optic Fibre Drawer Relationship Specialty Start Date End Date Linda Cunningham MD [address] [place] [address] PCP - General Internal Medicine 09/10/22 documented as of this encounter
--- OUTSIDE RECORDS SUMMARY | 2024-11-15 15:43 | XMS_ITS | Encounter Summary ---
Author Organization [employer] Address [address] [facility] 7t [place] [address] Care Team Providers Care English Language Learner Tutor Name Role Phone Linda Cunningham MD Primary Care Provider [phone] Encounter Details Date Type Department Care Team (Late st Contact Info) Description 06/11/2024 Orders Only [facility] [address] [place] [address] Linda Cunningham MD [address] [place] [address] Social History Tobacco Use Types Packs/Day Years [...] Description 11/21/2024 3:00 PM EDT Office Visit [facility] MEDICAL [address] [place] [address] Linda Cunningham MD [address] [place] [address] 12/06/2024 11:00 AM EDT Clinical Support [facility] NUTRITION [address] [place] [address] Abby Velazquez, GILL [address] [place] [address] 01/18/2025 10:00 AM EDT Office Visit [address] [address] Linda Cunningham MD [address] [place] [address] documented as of this encounter Procedures Procedure [...] documented as of this encounter Care Teams English Language Learner Tutor Relationship Specialty Start Date End Date Linda Cunningham MD [address] [place] [address] PCP - General Internal Medicine 09/10/22 documented as of this encounter
--- OUTSIDE RECORDS SUMMARY | 2024-11-15 15:43 | XMS_ITS | Clinical Summary ---
Author Organization [employer] Address 75 [facility] 7t [place] [address] Care Team Providers Care Lead Designer Name Role Phone Linda Cunningham MD Primary Care Provider [phone] Allergies Active Allergy Reactions Criticality Noted Date [...] metFORMIN XR (Glucophage-XR) 500 MG 24 hr tabletIndications: Obesity (BMI 35.0-39.9 without comorbidity) TAKE ONE TABLET [...] 025 Active levothyroxine (Synthroid, Levoxyl) 50 MCG tabletIndications: Acquired hypothyroidism Take 1 tablet (50 mcg) by [...] (Zoloft) 100 MG tablet 09/26/19 25 Active Active Problems Problem Noted Date Diagnosed [...] organization. Date Type Department Care Team Description 10/30/2024 Orders Only [facility] Information Management [address] [place] [address] Linda Cunningham MD 09/26/2024 2:30 PM EDT Office Visit [address] [address] Linda Cunningham MD Acquired hypothyroidism (Primary Dx); Vitamin D deficiency; Hyperglycemia 09/24/[address] [address] Linda Cunningham MD 09/07/[address] [address] Linda Cunningham MD Acquired hypothyroidism 09/06/2024 Orders Only [facility] MEDICAL [address] [place] [address] Provider, MD Tonya from Last 3 Months [...] 3:00 PM EDT Office Visit [facility] MEDICAL [address] [place] [address] Linda Cunningham MD [address] [place] [address] 12/06/2024 11:00 AM EDT Clinical Support [facility] NUTRITION [address] [place] [address] Abby Velazquez, RD [address] [place] [address] 01/18/2025 10:00 AM EDT Office Visit [facility] [address] [place] [address] Linda Cunningham MD [address] [place] [address] Health Maintenance Due Date Last Done Comments [...] , 05/07/2023, 04/08/2020, Additional history exists Depression Screening 10/05/2024 10/06/2023, 10/06/19 24 Diabetes: Hemoglobin A1C 09/26/2025 025, 11/16/2023, 09/16/2022, Additional history exists Tobacco Screening 09/26/2025 09/26/2024 Lipid Panel 11/15/2028 11/16/2023, 03/0 07/2022, 07/28/2021, Additional history exists Colonoscopy 10/10/2030 10/10/2020, 09/17, 01/29/2016 Colorectal Cancer Screening 10/10/2030 DTaP/Tdap/Td Vaccines [...] ECG 12-LEAD Routine 10/27/2024 9:31 AM EDT VITAMIN D 25 HYDROXY Routine 09/26/2024 3:13 [...] Recently Relevant to Health Maintenance Results * ECG 12 lead (10/27/2024 9:31 AM EDT) us Linda Cunningham MD ECG ORDERABLES Final Result * TSH with Reflex to Free T4 (09/26/2024 3:13 PM EDT) TSH 1.430 0.450 - 4.500 uIU/mL [facility] 1 Blood 09/26/2024 3:13 PM EDT 09/26/2024 Narrative [facility] 1 - 09/27/2024 6:05 AM EDT Performed at: ??01 - [facility] [address] ??[id number] Vortex Operator: Kaia Gaston MD, Phone: ??[phone] Linda Cunningham MD LAB BLOOD ORDERABLES Final Resul t [facility] 1 * Vitamin D 25 hydroxy [id number] (09/26/2024 3:13 PM EDT) Vitamin D, 25-OH, Total 41.3 30.0 - 100.0 ng/mL [facility] 1 Comment: Vitamin D deficiency has been defined by the [place] of Medicine and an Endocrine Society practice guideline as a level of serum 25-OH vitamin D less than 20 ng/mL (1,2). The Endocrine Society went on to further define vitamin D insufficiency as a level between 21 and 29 ng/mL (2). 1. IOM ([place] of Medicine). 2010. Dietary reference ?? intakes for calcium and D. Lal [place]: The ?? National Academies Press. 2. Jinny MF, Barbara NC, Enrique ZHANG, et al. ?? Evaluation, treatment, and prevention of vitamin D ?? deficiency: an Endocrine Society clinical practice ?? guideline. JCEM. 2010; 96(7):1911-30. Blood Venous blood specimen / Unknown 09/26/2024 3:13 PM EDT 09/26/2024 Narrative [facility] 1 - 09/27/2024 6:05 AM EDT Performed at: ??01 - [facility] [address] ??[id number] Vortex Operator: Kaia Gaston MD, Phone: ??[phone] Linda Cunningham MD LAB BLOOD ORDERABLES Final Resul t Performing Organization Address [facility] de Phone Number [facility] 1 * (ABNORMAL) Hemoglobin A1c (09/26/2024 3:13 PM EDT) [facility] Hemoglobin A1c 6.1(H) 4.8 - 5.6 % [facility] 1 Comment: ? Prediabetes: 5.7 - 6.4 ? Diabetes: >6.4 ? Glycemic control for adults with diabetes: <7.0 Blood Venous blood specimen / Unknown 09/26/2024 3:13 PM EDT 09/26/2024 Narrative [facility] 1 - 09/27/2024 6:05 AM EDT Performed at: ??01 - [facility] [address] ??[id number] Vortex Operator: Kaia Gaston MD, Phone: ??[phone] Linda Cunningham MD LAB BLOOD ORDERABLES Final Resul t Performing Organization Address [facility] de Phone Number [facility] 1 * (ABNORMAL) [...] AM EDT Performed at: ??01 - [facility] [address] ??[id number] Vortex Operator: Kaia Gaston MD, Phone: ??[phone] Linda Cunningham MD LAB BLOOD ORDERABLES [...] AM EDT Performed at: ??01 - [facility] [address] ??[id number] Vortex Operator: Kaia Gaston MD, Phone: ??[phone] Linda Cunningham MD LAB BLOOD ORDERABLES Final Resul t [facility] 1 * Colonoscopy (10/10/2020) Colonoscopy Normal Normal Comment:internal hemorrhoids , polyp, repeat in 5 years Historical Provider HEALTH MAINTENANCE Final Result * MAMMOGRAM: [facility] (03/24/2019 12:00 AM EDT) Anatomical Region Laterality Modality Breast Bilateral Mammography 03/24/2019 Narrative 03/24/2019 12:00 AM EDT Refer to Fovea for result details Legacy Procedure: MAMMOGRAM: [facility] ?? Procedure Note Provider, Tonya, - 11/12/2022 Refer to Aaron for result details Legacy Procedure: MAMMOGRAM: [facility] Historical Provider IMG BI PROCEDURES Final R esult * THIN PREP PAP, WITH HPV (03/01/2019 12:00 AM EDT) Historical Provider LAB CYTOLOGY ORDERABLES F inal Result [facility] [address] [place] [address] from Last 3 Months or Most Recently Relevant to Health Maintenance Insurance , [id number] [place] [phone] Care Teams Lead Designer Relationship Specialty Start Date End Date Linda Cunningham MD [address] [place] [address] PCP - General Internal Medicine 09/10/22
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
--- OUTSIDE RECORDS SUMMARY | 2024-11-15 15:43 | XMS_ITS | Encounter Summary ---
Author Organization [employer] Address 75 [facility] 7t [place] [address] Care Team Providers Care Artillery Or Naval Gunfire Observer Name Role Phone Linda Cunningham MD Primary Care Provider [phone] Encounter Details Date Type Department Care Team (Late st Contact Info) Description 08/04/2024 Orders Only [facility] MEDICAL [address] [place] [address] Provider, MD Tonya Social History Tobacco Use [...] Description 11/21/2024 3:00 PM EDT Office Visit [facility] [address] [place] [address] Linda Cnuningham MD [address] [place] [address] 12/06/2024 11:00 AM EDT Clinical Support [facility] [address] [place] [address] Abby Velazquez, GILL [address] [place] [address] 01/18/2025 10:00 AM EDT Office Visit [facility] [address] [place] [address] Linda Cunningham MD [address] [place] [address] documented as of this encounter Procedures Procedure [...] documented as of this encounter Care Teams Artillery Or Naval Gunfire Observer Relationship Specialty Start Date End Date Linda Cunningham MD [address] [place] [address] PCP - General Internal Medicine 09/10/22 documented as of this encounter
== END 2024-11-15 16:30 | disposition home or self-care (01) ==
LOC: HO.HOP 14:23
PROVIDERS: PCP Internal Medicine; Visit Provider Psychiatry & Neurology Psychiatry
DX: F42.9 Obsessive-compulsive disorder, unspecified (principal); F43.10 Post-traumatic stress disorder, unspecified; F31.9 Bipolar disorder, unspecified
CPT/HCPCS: 99214

== ENCOUNTER → 2024-11-15 14:23 | Outpatient (BNVA) | payer OTHER, MEDICARE, SELFPAY | PROVIDERS: PCP Internal Medicine; Visit Provider Psychiatry & Neurology Psychiatry ==

== ENCOUNTER 2024-12-19 14:33 | Outpatient (AMB) | payer OTHER, MEDICARE, SELFPAY ==
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
--- OUTSIDE RECORDS SUMMARY | 2024-12-19 16:22 | XMS_ITS | Encounter Summary ---
Author Organization [employer] Address 75 [facility] 7t [place] [address] Care Team Providers Care Wind Commissioning Technician Name Role Phone Linda Cunningham MD Primary Care Provider [phone] Encounter Details Date Type Department Care Team (Late st Contact Info) Description 10/30/2024 Orders Only [facility] Information Management [address] [place] [address] Linda Cunningham MD [address] [place] [address] Social History Tobacco Use Types Packs/Day Years [...] Care Team (Late st Contact Info) Description 01/18/2025 10:00 AM EDT Office Visit [facility] MEDICAL [address] [place] [address] Linda Cunningham MD [address] [place] [address] 02/12/2025 2:15 PM EDT Clinical Support [facility] NUTRITION [address] [place] [address] [place] [address] documented as of this encounter Procedures Procedure Name Priority Date/Time Associated Diagnosis Comments BI MAMMOGRAM SCREENING TOMOSYNTHESIS BILATERAL Routine 11/29/2024 8:03 AM EDT ECG 12-LEAD Routine 10/27/2024 9:31 AM EDT documented in this encounter Results * BI Mammogram Screening Tomosynthesis Bilateral (11/29/2024 8:03 AM EDT) Anatomical Region Laterality Modality Breast Bilateral Mammography 11/29/2024 8:03 AM EDT Narrative 11/29/2024 2:14 PM EDT PROCEDURE: MM Digital Mammo Screening INDICATION: Screening for breast cancer. No known palpable abnormalities. COMPARISON: Multiple prior comparison studies, most recent on 10/15/2023 . TECHNIQUE: Full-field digital CC and MLO 3D tomosynthesis images of both breasts were acquired. Computer-aided detection (CAD) was utilized in the interpretation of this study. DENSITY: There are scattered areas of fibroglandular density. FINDINGS: No suspicious masses, suspicious microcalcifications, or areas of architectural distortion are seen in either breast to suggest malignancy. IMPRESSION: No mammographic evidence of malignancy. RECOMMENDATION: Annual mammographic screening BI-RADS: 1 (Negative) Lay letter mailed to patient WSN: [id number] Ordering Physician: Linda Cunningham Dictated By: ?Geremias Rivas MD Dictated Date/Time: ?11/29/24 2:11 pm Reviewed By: ?Geremias Rivas MD Signed By: ? Geremias Rivas MD Signed Date/Time: ? 11/29/24 2:11 pm Transcribed By: ? CSB Second Chef Date/Time: ? 11/29/24 2:04 pm Birads: Procedure Note Donotuseinterpreter, Image - 12/04/2024 PROCEDURE: MM Digital Mammo Screening INDICATION: Screening for breast cancer. No known palpableabnormalities. COMPARISON: Multiple prior comparison studies, most recent on 10/15/2023. TECHNIQUE: Full-field digital CC and MLO 3D tomosynthesis images of bothbreasts were acquired. Computer-aided detection (CAD) was utilized in theinterpretation of this study. DENSITY: There are scattered areas of fibroglandular density. FINDINGS: No suspicious masses, suspicious microcalcifications, or areasof architectural distortion are seen in either breast to suggestmalignancy. IMPRESSION: No mammographic evidence of malignancy. RECOMMENDATION: Annual mammographic screening BI-RADS: 1 (Negative) Lay letter mailed to patient WSN: [id number] Ordering Physician: Linda Cunningham Dictated By: Geremias Rivas MD Dictated Date/Time: 11/29/24 2:11 pm Reviewed By: Geremias Rivas MD Signed By: Geremias Rivas MD Signed Date/Time: 11/29/24 2:11 pm Transcribed By: PRAVEEN Second Chef Date/Time: 11/29/24 2:04 pm Birads: Linda Cnuningham MD IMG BI PROCEDURES Edited Result - Final * ECG 12 lead (10/27/2024 9:31 AM EDT) Linda Cunningham MD ECG ORDERABLES Final Result documented in this encounter Visit Diagnoses Not on filedocumented in this encounter Additional Health Concerns Assessment Noted Time PHQ-9 Depression Total Score: 15 024 11:05 AM EDT documented as of this encounter Care Teams Wind Commissioning Technician Relationship Specialty Start Date End Date Linda Cunningham MD [address] [place] [address] PCP - General Internal Medicine 09/10/22 documented as of this encounter
== END 2024-12-19 15:35 | disposition home or self-care (01) ==
LOC: HO.HOP 14:33
PROVIDERS: PCP Internal Medicine; Visit Provider Psychiatry & Neurology Psychiatry
DX: F42.9 Obsessive-compulsive disorder, unspecified (principal); F43.10 Post-traumatic stress disorder, unspecified; F31.9 Bipolar disorder, unspecified; Z79.899 Other long term (current) drug therapy
CPT/HCPCS: 90833; 99213

== ENCOUNTER → 2024-12-19 14:33 | Outpatient (BNVA) | payer OTHER, MEDICARE, SELFPAY | PROVIDERS: PCP Internal Medicine; Visit Provider Psychiatry & Neurology Psychiatry ==

== ENCOUNTER 2024-12-29 10:41 | Outpatient (REF) | payer OTHER, MEDICARE, SELFPAY ==
[2024-12-29 10:56] LABS: MANUAL DIFF FLAG NO
--- OUTSIDE RECORDS SUMMARY | 2024-12-29 11:44 | XMS_ITS | Encounter Summary ---
Author Organization [employer] Address 75 [facility] 7t [place] [address] Care Team Providers Care Classified Copy Control Clerk Name Role Phone Linda Cunningham MD Primary Care Provider [phone] Encounter Details Date Type Department Care Team (Late st Contact Info) Description 10/30/2024 Orders Only [facility] Information Management [address] [place] [address] Linda Cunningham MD [address] [place] [address] Social History Tobacco Use Types Packs/Day Years [...] Description 01/18/2025 10:00 AM EDT Office Visit [facility] MEDICAL [address] [place] [address] Linda Cunningham MD [address] [place] [address] 02/12/2025 2:15 PM EDT Clinical Support [facility] NUTRITION [address] [place] [address] [place] [address] documented as of this encounter Procedures Procedure [...] (Negative) Lay letter mailed to patient WSN: [id number] Ordering Physician: Linda Cunningham Dictated By: ?Geremias Rivas MD Dictated Date/Time: ?11/29/24 2:11 pm Reviewed By: ?Geremias Rivas MD Signed By: ? Geremias Rivas MD Signed Date/Time: ? 11/29/24 2:11 pm Transcribed By: ? CSB Medical Biller Date/Time: ? 11/29/24 2:04 pm Birads: Procedure [...] (Negative) Lay letter mailed to patient WSN: [id number] Ordering Physician: Linda Cunningham Dictated By: Geremias Rivas MD Dictated Date/Time: 11/29/24 2:11 pm Reviewed By: Geremias Rivas MD Signed By: Geremias Rivas MD Signed Date/Time: 11/29/24 2:11 pm Transcribed By: PRAVEEN Medical Biller Date/Time: 11/29/24 2:04 pm Birads: Linda Cunningham MD IMG BI PROCEDURES Edited Result - Final * ECG 12 lead (10/27/2024 9:31 AM EDT) Linda Cunningham MD ECG ORDERABLES Final Result documented in this encounter Visit Diagnoses Not on filedocumented in this encounter Additional Health Concerns Assessment Noted Time PHQ-9 Depression Total Score: 15 024 11:05 AM EDT documented as of this encounter Care Teams Classified Copy Control Clerk Relationship Specialty Start Date End Date Linda Cunningham MD [address] [place] [address] PCP - General Internal Medicine 09/10/22 documented as of this encounter
[2024-12-29 12:22] LABS: Basophils Absolute Auto 0.1 X10*3/uL (0.0-0.2); Basophils Percent Auto 1.4 % (0-2); Eosinophils Absolute Auto 0.3 X10*3/uL (0.0-0.4); Hematocrit 40.3 % (37.0-47.0); Hemoglobin 13.4 g/dl (12.0-16.0); Imm Gran Abs Auto 0.05 X10*3/uL (0.00-0.03); Imm Gran Pct Auto 0.5 % (0.0-0.4); Lymphocytes Absolute Auto 3.5 X10*3/uL (1.2-4.9); Lymphocytes Percent Auto 37.1 % (20-40); Mean Corpuscular HGB Conc 33.3 g/dl (31.0-35.0); Mean Corpuscular Hemoglobin 30.4 pg (27.0-33.0); Mean Corpuscular Volume 91.4 fL (80.0-98.0); Mean Platelet Volume 11.5 fL (9.4-12.3); Monocytes Absolute Auto 0.9 X10*3/uL (0.1-1.2); Monocytes Percent Auto 9.2 % (2-11); Neutrophils Absolute Auto 4.6 x10*3/uL (2.0-8.3); Neutrophils Percent Auto 48.8 % (45-73); Platelet Count 318 X10*3/uL (160-400); Red Blood Count 4.41 X10*6/uL (4.20-5.50); Red Cell Distribution Width 13.2 % (11.0-16.0); White Blood Count 9.4 X10*3/uL (4.8-10.8)
== END 2024-12-29 10:42 | disposition home or self-care (01) ==
LOC: HO.LAB 10:41
PROVIDERS: PCP Internal Medicine; Visit Provider Psychiatry & Neurology Psychiatry
DX: Z79.899 Other long term (current) drug therapy (principal)
CPT/HCPCS: 36415; 85025

== ENCOUNTER 2025-03-05 14:32 | Outpatient (AMB) | payer OTHER, MEDICARE, SELFPAY ==
--- OUTSIDE RECORDS SUMMARY | 2025-03-05 15:14 | XMS_ITS | Encounter Summary ---
Author Organization [employer] Address 75 [facility] 7t [place] [address] Care Team Providers Care Integrated Logistics Programs Director Name Role Phone Linda Cunningham MD Primary Care Provider [phone] Encounter Details Date Type Department Care Team (Late st Contact Info) Description 10/30/2024 Orders Only [facility] Information Management [address] [place] [address] Linda Cunningham MD [address] [place] [address] Social History Tobacco Use Types Packs/Day Years [...] Care Team (Late st Contact Info) Description 03/22/2025 3:00 PM EDT Office Visit [facility] MEDICAL [address] [place] [address] Linda Cunningham MD [address] [place] [address] 04/02/2025 3:00 PM EDT Clinical Support [facility] NUTRITION [address] [place] [address] [place] [address] documented as of this encounter Procedures Procedure [...] (Negative) Lay letter mailed to patient WSN: [id number] Ordering Physician: Linda Cunningham Dictated By: Geremias Rivas MD Dictated Date/Time: 11/29/24 2:11 pm Reviewed By: Geremias Rivas MD Signed By: Geremias Rivas MD Signed Date/Time: 11/29/24 2:11 pm Transcribed By: CSTyrone Temperature Regulator Pyrometer Date/Time: 11/29/24 2:04 pm Birads: Procedure Note Donotuseinterpreter, [...] (Negative) Lay letter mailed to patient WSN: [id number] Ordering Physician: Linda Cunningham Dictated By: Geremias Rivas MD Dictated Date/Time: 11/29/24 2:11 pm Reviewed By: Geremias Rivas MD Signed By: Geremias Rivas MD Signed Date/Time: 11/29/24 2:11 pm Transcribed By: CSTyrone Temperature Regulator Pyrometer Date/Time: 11/29/24 2:04 pm Birads: Linda Cunningham [...] documented as of this encounter Care Teams Integrated Logistics Programs Director Relationship Specialty Start Date End Date Linda Cunningham MD [address] [place] [address] PCP - General Internal Medicine 09/10/22 documented as of this encounter
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
== END 2025-03-05 15:49 | disposition home or self-care (01) ==
LOC: HO.HOP 14:32
PROVIDERS: PCP Internal Medicine; Visit Provider Psychiatry & Neurology Psychiatry
DX: F31.77 Bipolar disorder, in partial remission, most recent episode mixed (principal); F42.9 Obsessive-compulsive disorder, unspecified; F43.10 Post-traumatic stress disorder, unspecified
CPT/HCPCS: 99214

== ENCOUNTER 2025-03-15 11:06 | Outpatient (REF) | payer OTHER, MEDICARE, SELFPAY ==
[2025-03-15 11:33] LABS: MANUAL DIFF FLAG NO
[2025-03-15 11:54] LABS: Hematocrit 42.1 % (37.0-47.0); Hemoglobin 14.2 g/dl (12.0-16.0); Imm Gran Abs Auto 0.05 X10*3/uL (0.00-0.03); Imm Gran Pct Auto 0.5 % (0.0-0.4); Lymphocytes Absolute Auto 3.6 X10*3/uL (1.2-4.9); Mean Corpuscular HGB Conc 33.7 g/dl (31.0-35.0); Mean Corpuscular Hemoglobin 30.4 pg (27.0-33.0); Mean Corpuscular Volume 90.1 fL (80.0-98.0); NRBC Abs Auto 0.000 X10*3/uL (0.0-0.012); NRBC Pct Auto 0.0 /100WBC (0.0-0.2); Platelet Count 317 X10*3/uL (160-400); Red Blood Count 4.67 X10*6/uL (4.20-5.50); White Blood Count 10.6 X10*3/uL (4.8-10.8)
--- OUTSIDE RECORDS SUMMARY | 2025-03-15 12:28 | XMS_ITS | Encounter Summary ---
Author Organization [employer] Address [address] [facility] [address] [place] [address] Care Team Providers Care Compounding Pharmacy Technician Name Role Phone Linda Cunningham MD Primary Care Provider [phone] Encounter Details Date Type Department Care Team (Late st Contact Info) Description 10/30/2024 Orders Only [facility] [address] [place] [address] Linda Cunningham MD [address] [place] [address] Social History Tobacco Use Types Packs/Day Years [...] Description 03/22/2025 3:00 PM EDT Office Visit [facility] MEDICAL [address] [place] [address] Linda Cunningham MD [address] [place] [address] 04/02/2025 3:00 PM EDT Clinical Support [facility] NUTRITION [address] [place] [address] [place] [address] documented as of this encounter Procedures Procedure [...] (Negative) Lay letter mailed to patient WSN: [id number] Ordering Physician: Linda Cunningham Dictated By: Geremias Rivas MD Dictated Date/Time: 11/29/24 2:11 pm Reviewed By: Geremias Rivas MD Signed By: Geremias Rivas MD Signed Date/Time: 11/29/24 2:11 pm Transcribed By: [employer] Specialist Date/Time: 11/29/24 2:04 pm Birads: Procedure Note [...] (Negative) Lay letter mailed to patient WSN: [id number] Ordering Physician: Linda Cunningham Dictated By: Geremias Rivas MD Dictated Date/Time: 11/29/24 2:11 pm Reviewed By: Geremias Rivas MD Signed By: Geremias Rivas MD Signed Date/Time: 11/29/24 2:11 pm Transcribed By: [employer] Specialist Date/Time: 11/29/24 2:04 pm Birads: Linda Cunningham [...] documented as of this encounter Care Teams Compounding Pharmacy Technician Relationship Specialty Start Date End Date Linda Cunningham MD [address] [place] [id number] PCP - General Internal Medicine 09/10/22 documented as of this encounter
--- OUTSIDE RECORDS SUMMARY | 2025-03-15 12:28 | XMS_ITS | Encounter Summary ---
Author Organization [employer] Address [address] [facility] [address] [place] [address] Care Team Providers Care Manager Target Name Role Phone Linda Cunningham MD Primary Care Provider Encounter Details Date Type Department Care Team (Late st Contact Info) Description 05/10/2024 Orders Only [facility] MEDICAL [address] [place] [address] ProviderTonya MD Social History Tobacco Use Types [...] the past 12 months, has t he [employer], gas, oil or water company threatened to [...] Description 03/22/2025 3:00 PM EDT Office Visit [facility] MEDICAL [address] [place] [address] Linda Cunningham MD [address] [place] [address] 04/02/2025 3:00 PM EDT Clinical Support [facility] NUTRITION [address] [place] [address] Abby Velazquez, GILL [address] [place] [address] documented as of this encounter Procedures Procedure [...] documented as of this encounter Care Teams Manager Target Relationship Specialty Start Date End Date Linda Cunningham MD [address] [place] [address] PCP - General Internal Medicine 09/10/22 documented as of this encounter
--- OUTSIDE RECORDS SUMMARY | 2025-03-15 12:29 | XMS_ITS | Encounter Summary ---
Author Organization [employer] Address [address] [facility] [address] [place] [address] Care Team Providers Care Lead Electrical Controls Engineer Name Role Phone Linda Cunningham MD Primary Care Provider [phone] Encounter Details Date Type Department Care Team (Late st Contact Info) Description 09/06/2024 Orders Only [facility] MEDICAL [address] [place] [address] ProviderTonya MD Social History Tobacco Use Types [...] the past 12 months, has t he [employer], gas, oil or water company threatened to [...] 03/22/2025 3:00 PM EDT Office Visit [facility] MEDICAL [address] [place] [address] Linda Cunningham MD [address] [place] [address] 04/02/2025 3:00 PM EDT Clinical Support [facility] NUTRITION [address] [place] [address] Abby Velazquez, GILL [address] [place] [address] documented as of this encounter Procedures Procedure [...] documented as of this encounter Care Teams Lead Electrical Controls Engineer Relationship Specialty Start Date End Date Linda Cunningham MD [address] [place] [address] PCP - General Internal Medicine 09/10/22 documented as of this encounter
--- OUTSIDE RECORDS SUMMARY | 2025-03-15 12:29 | XMS_ITS | Clinical Summary ---
Author Organization [employer] Address [address] [facility] 7t [place] [address] Care Team Providers Care Finishing Technician Name Role Phone Linda Cunningham MD Primary Care Provider [phone] Allergies Active Allergy Reactions Criticality Noted Date Comments Thioridazine High 11/05/2020 Other reaction(s): cardiac arrest in combo w/SSRI, Other (see comments) Medications * This document contains information received from the source organization and may not represent a complete record from that organization. clonazePAM (KlonoPIN) 1 MG tablet Take 1 mg by mouth in the morning and 1 mg at noon and 1 mg in the evening. 09/07/19 23 Active cloZAPine (Clozaril) 50 MG tablet 50 mg in the morning and 50 mg at noon and 50 mg in the evening. 08/22/19 23 Active LORazepam (Ativan) 2 MG tablet Take 2 mg by mouth if needed each day. 08/11/19 23 Active QUEtiapine (SEROquel) 100 MG tablet Take 100 mg by mouth if needed each day. 02/13/20 22 Active topiramate (Topamax) 100 MG tablet Take 100 mg by mouth in the morning and 100 mg in the evening. 09/09/19 23 Active albuterol (ProAir HFA) 108 (90 Base) MCG/ACT inhaler Inhale 2 puffs every 4 (four) hours if needed for wheezing or shortness of breath. 8.5 g 05/22/20 23 Active glycopyrrolate (Robinul) 2 MG tablet Take 2 mg by mouth at bedtime. 08/04/19 24 Active propranolol LA (Inderal LA) 60 MG 24 hr capsule Take 1 capsule (60 mg) by mouth Once per day. 90 capsule 3 05/19/20 24 025 Active levothyroxine (Synthroid, Levoxyl) 50 MCG tabletIndications :Acquired hypothyroidism Take 1 tablet (50 mcg) by mouth Once per day. 90 tablet 3 09/07/19 25 026 Active LORazepam (Ativan) 1 MG tablet Take 1 tablet by mouth every 6 (six) hours during the day. 06/28/20 24 Active sertraline (Zoloft) 100 MG tablet 09/26/19 25 Active ARIPiprazole (Abilify) 10 MG tablet Take 10 mg by mouth at bedtime. 11/27/19 25 Active metFORMIN XR (Glucophage-XR) 500 MG 24 hr tabletIndications :Obesity (BMI 35.0-39.9 without comorbidity) TAKE ONE TABLET BY MOUTH EVERY DAY. DO NOT CRUSH, CHEW, OR SPLIT 90 tablet 3 02/27/20 25 Active minoxidil (Loniten) 2.5 MG tablet TAKE ONE TABLET BY MOUTH EVERY DAY 30 tablet 02/27/20 25 Active metFORMIN XR (Glucophage-XR) 500 MG 24 hr tabletIndications :Obesity (BMI 35.0-39.9 without comorbidity) TAKE ONE TABLET BY MOUTH EVERY DAY. DO NOT CRUSH, CHEW, OR SPLIT 90 tablet 3 01/23/20 24 025 Discontinued minoxidil (Loniten) 2.5 MG tablet TAKE ONE TABLET BY MOUTH EVERY DAY 30 tablet 01/24/20 25 025 Discontinued Active Problems Problem Noted Date Diagnosed Date Dysuria 12/13/2024 Gross hematuria 12/13/2024 Acute renal failure 12/13/2024 Anxiety 10/06/2023 Overview (10/06/2023): gets abdominal pain [...] organization. Date Type Department Care Team Description 02/24/[address] [address] Concepción Burch 02/24/[address] [address] Linda Cunningham MD Obesity (BMI 35.0-39.9 without comorbidity) 02/12/2025 2:15 PM EDT Clinical Support [facility] NUTRITION [address] [place] [address] Abby Velazquez, GILL Class 3 severe obesity due to excess calories without serious comorbidity with body mass index (BMI) of 40.0 to 44.9 in adult (Primary Dx); Metabolic dysfunction-associat ed steatotic liver 02/12/2025 Travel 01/23/[address] [address] Mindy Elena CNP 12/23/[address] [address] Linda Cunningham MD 12/14/2024 Results Follow-Up [address] [address] Dinora Laughlin NP POCT urinalysis dipstick manually resulted, Urinalysis, Complete, with Reflex to Culture, Microscopic Examination, Urine Culture, Routine 12/13/2024 9:40 AM EDT Office Visit [address] [address] Dinora Laughlin, ISAIAH Dysuria (Primary Dx); Gross hematuria; Acute renal failure, unspecified acute renal failure type (CMS/HCC) from Last 3 Months Immunizations Immunization Administration Dates Next Due Influenza Injectable Quadriv [...] Not Answered Alcohol Use Standard Drinks/Week Comments Yes 0 (1 standard drink = 0.6 oz pur e alcohol) occasional Alcohol Answer Date Recorded How often do you have a drink containing alcohol ? 0 12/13/2024 How many drinks containing a lcohol do you have on a typical day when you are drinking? 0 12/13/2024 How often do you have six or more drinks on one occasion? 0 12/13/2024 Depression Answer Date Recorded Patient Health Questionnaire-9 Score 15 10/06/2023 Patient Health Questionnaire-9 Score 15 10/06/2023 Last PHQ-9: Questionnaire Data Not on file 0 10/06/2023 Housing Stability Answer Date Recorded What is your housing situation today? I have sharron kemp 12/13/[address] you li ve. Do you have problems with any of the following? None of the above 12/13/2024 Food Insecurity Answer Date Recorded Within the past 12 months, y ou worried that your food would run out before you got money to buy more: Never True 12/13/2024 Within the past 12 months,th e food you bought just didn't last and you didn't have enough money to get more: Never True Transportation Answer Date Recorded In the past 12 months, has l ack of transportation kept you from medical appts, meetings, work or from getting things needed for daily living? No 12/13/2024 Intimate Partner Violence Answer Date R ecorded Within the last year, have y ou been afraid of your partner or ex-partner? 2 12/13/2024 Within the last year, have y ou been humiliated or emotionally abused in other ways by your partner or ex-partner? 2 Within the last year, have y ou been kicked, hit, slapped, or otherwise physically hurt by your partner or ex-partner? 2 12/13/2024 Within the last year, have y ou been raped or forced to have any kind of sexual activity by your partner or ex-partner? 2 12/13/2024 Utilities Answer Date Recorded In the past 12 months, has t he [employer], [employer], oil or water [employer] threatened to shut off services in your home? No 12/13/2024 Depression Answer Date Recorded Patient Health Questionnaire-2 Score 0 12/13/2024 Internet Access Answer Date Recorded Internet Access Q1 Yes 12/13/2024 Internet Access Q2 Not on file 12/13/2024 Education Answer Date Recorded What is the highest level of school you have completed or the highest degree you have received? Some college, no degree 12/13/2024 Comments Unknown Sex and Gender Information Value Date Recorded Sex Assigned at Female 09/10/2022 11:16 AM EST Legal Sex Female 8:36 PM EDT Gender Identity Female 09/10/2022 11:16 AM EST Sexual Orientation Straight 09/10/2022 11 :16 AM EST Last Filed Vital Signs Vital Sign Reading Time Taken Comments Blood Pressure 133/75 12/13/2024 9:53 AM EDT Pulse 95 12/13/2024 9:53 AM EDT Temperature 36.6 C (97.8 F) 12/13/2024 9:53 AM EDT Respiratory Rate 16 11/21/2024 2:55 PM EDT Oxygen Saturation 95% 12/13/2024 9:53 AM EDT Inhaled Oxygen Concentration - - Weight 109 kg (241 lb) 12/13/2024 9:53 AM EDT Height 165.1 cm (5' 5 ) 12/13/2024 9:53 AM EDT Body Mass Index 40.1 12/13/2024 9:53 AM EDT Plan of Treatment Upcoming Encounters Date Type Department Care Team (Late st Contact Info) Description 03/22/2025 3:00 PM EDT Office Visit [facility] MEDICAL [address] [place] [address] Linda Cunningham MD [address] [place] [address] 04/02/2025 3:00 PM EDT Clinical Support [facility] NUTRITION [address] [place] [address] [facility] [place] [address] Health Maintenance Due Date Last Done Comments CT Colonography 1966 FIT DNA/Cologuard 1966 FIT 1966 FOBT 1966 HIV Screening 1966 Sigmoidoscopy 1966 Hepatitis C Screening 1984 Hepatitis A Vaccines (1 of 2 - Risk 2-dose series) 1985 Hepatitis B Vaccines (1 of 3 - 19+ 3-dose series) 1985 Pneumococcal Vaccine: 50+ Years (1 of 1 - PCV) 2016 Zoster Vaccines (1 of 2) 2016 Cervical Cancer Screening 03/01/2024 HPV/Cotest 03/01/2024 03/01/2019, 09/08/2013 Pap Smear 03/01/2024 03/01/2019, 09/08/2013 COVID-19 Vaccine ( season) 2024 06/22/2022, 06/06/2021, 10/31/2020, Additional history exists Influenza Vaccine (#1) 2025 , 05/07/2023, 04/08/2020, Additional history exists Depression Monitoring 06/15/2025 12/13/2024, 024 Diabetes: Hemoglobin A1C 09/26/2025 025, 11/16/2023, 09/16/2022, Additional history exists Alcohol/Substance Use Screening 12/13/2025 12/13/2024 Disability Screening 12/13/2025 12/13/2024 SDOH Screening 12/13/2025 12/13/2024 Tobacco Screening 12/13/2025 12/13/2024 Mammogram 11/29/2026 11/29/2024, 09/0 12/2018, 03/24/2019 Lipid Panel 11/15/2028 11/16/2023, 03/0 07/2022, 07/28/2021, [...] patient's age to complete this topic Meningococcal B Vaccine Aged Out No l onger eligible based on patient's age to complete [...] Procedure Name Priority Date/Time Associated Diagnosis Comments URINE CULTURE, ROUTINE (NON ORDERABLE) Routine 12/13/2024 10:22 AM EDT MICROSCOPIC EXAMINATION (NON ORDERABLE) Routine 12/13/2024 10:22 AM EDT URINALYSIS, COMPLETE, WITH REFLEX TO CULTURE Routine 12/13/2024 10:22 AM EDT Dysuria POCT URINALYSIS DIPSTICK Routine 12/13/2024 10:19 AM EDT Dysuria BI MAMMOGRAM SCREENING TOMOSYNTHESIS BILATERAL Routine 11/29/2024 8:03 AM EDT HEMOGLOBIN A1C Routine 09/26/2024 3:13 PM EDT Hyperglycemia LIPID PANEL, STANDARD Routine 11/16/2023 11:13 AM EDT Elevated triglycerides with high cholesterol HM COLONOSCOPY Routine 10/10/2020 THIN PREP PAP, WITH HPV Routine 03/01/2019 12:00 AM EDT from Last 3 Months or Most Recently Relevant to Health Maintenance Results * Urine Culture, Routine (12/13/2024 10:22 AM EDT) Culture, Urine, Routine Final report [facility] 2 Result 1 No growth [facility] 2 12/13/2024 10:2 2 AM EDT 12/13/2024 Narrative [facility] 2 - 12/15/2024 8:05 AM EDT Performed at: - [facility] [address], [address], [place], [place] [id number] Wafer Polisher: Marlon King MD, Phone: [phone] Dinora Starr NP HISTORICAL/NON ORDERA BLE LABS Final Result Performing Organization Address [facility] Co de Phone Number [facility] 2 * (ABNORMAL) Microscopic Examination (12/13/2024 10:22 AM EDT) WBC, Urine 0-5 0 - 5 /hpf [facility] 1 RBC, Urine >30(A) 0 - 2 /hpf [facility] 1 Epithelial Cells (non renal) 0-10 0 - 10 /hpf [facility] 1 Casts None seen None seen /lpf [facility] 1 Bacteria None seen None seen/Few [facility] 1 12/13/2024 10:2 2 AM EDT 12/13/2024 Narrative [facility] 1 - 12/15/2024 8:05 AM EDT Performed at: - [facility] [id number] Wafer Polisher: Kaia Gaston MD, Phone: [phone] Dinora Starr NP HISTORICAL/NON ORDERA BLE LABS Final Result Performing Organization Address City/[facility]/ZIP Co de Phone Number [facility] 1 * (ABNORMAL) Urinalysis, Complete, with Reflex to Culture (12/13/2024 10:22 AM EDT) Specific [place] 1.015 1.005 - 1.030 [facility] 1 pH, Urine 6.5 5.0 - 7.5 [facility] 1 Color [place] Yellow [facility] 1 Appearance Cloudy(A) Clear [facility] 1 Leukocyte esterase, Urine 3+(A) Negative [facility] 1 Protein,Urine 1+(A) Negative/Tra ce [facility] 1 Glucose, Urine Negative Negative [facility] 1 Ketones,Urine Negative Negative [facility] 1 Occult Blood,Urine Trace(A) Negative [facility] 1 Bilirubin,Urine Positive(A) Negative [facility] 1 Comment:Positive results hav e been confirmed. Urobilinogen,Se mi-Qn 2.0(H) 0.2 - 1.0 mg/dL [facility] 1 Nitrite,Urine Positive(A) Negative [facility] 1 Microscopic Examination See below: [facility] 1 Comment:Microscopic was marlen cated and was performed. Urinalysis Reflex [facility] 1 Comment:This specimen has re flexed to a Urine Culture. Urine (Urine, Random) 12/13/2024 10:22 AM EDT 12/13/2024 Narrative [facility] 1 - 12/15/2024 8:05 AM EDT Performed at: - [facility] [id number] Wafer Polisher: Kaia Gaston MD, Phone: [phone] Dinora Starr NP LAB URINE ORDERABLES Final Result [facility] 1 * (ABNORMAL) POCT urinalysis dipstick manually resulted (12/13/2024 10:19 AM EDT) Color, UA Red Clarity, UA Clear Glucose, UA 1+ 70+ Bilirubin, UA 3+ 500+++ Ketones, UA Positive Spec Grav, UA 1.015 Blood, UA 2+(A) Negative, None Detected pH, UA 6.5 Protein, UA Trace Urobilinogen, UA 4.0 Leukocytes, UA 4+ >500(A) Negative, Rare, Trace Nitrite, UA Positive(A) Negative, None Detected Urine 12/13/2024 10:1 9 AM EDT Dinora HallmanPerlitaLakhwinder ISAIAH POINT OF CARE TEST EN TER/EDIT ORDERABLES Final Result * BI Mammogram Screening Tomosynthesis Bilateral (11/29/2024 [...] (Negative) Lay letter mailed to patient WSN: [id number] Ordering Physician: Linda Cunningham Dictated By: Geremias Rivas MD Dictated Date/Time: 11/29/24 2:11 pm Reviewed By: Geremias Rivas MD Signed By: Geremias Rivas MD Signed Date/Time: 11/29/24 2:11 pm Transcribed By: PRAVEEN Quality Assurance Monitor Chassis Date/Time: 11/29/24 2:04 pm Birads: Procedure Note [...] (Negative) Lay letter mailed to patient WSN: [id number] Ordering Physician: Linda Cunningham Dictated By: Geremias Rivas MD Dictated Date/Time: 11/29/24 2:11 pm Reviewed By: Geremias Rivas MD Signed By: Geremias Rivas MD Signed Date/Time: 11/29/24 2:11 pm Transcribed By: PRAVEEN Quality Assurance Monitor Chassis Date/Time: 11/29/24 2:04 pm Birads: Linda Cunningham MD IMG BI PROCEDURES Edited Result - Final * (ABNORMAL) Hemoglobin A1c (09/26/2024 3:13 PM EDT) Hemoglobin A1c 6.1(H) 4.8 - 5.6 % [facility] 1 Comment: Prediabetes: 5.7 - 6.4 Diabetes: >6.4 Glycemic control for adults with diabetes: <7.0 Blood Venous blood specimen / Unknown 09/26/2024 3:13 PM EDT 09/26/2024 Narrative [facility] 1 - 09/27/2024 6:05 AM EDT Performed at: [facility] [address] [id number] Wafer Polisher: Kaia Gaston MD, Phone: [phone] Linda Cunningham MD LAB BLOOD ORDERABLES Final [...] - 11/17/2023 12:05 AM EDT Performed at: 01 - [facility] [address] [id number] Wafer Polisher: Kaia Gaston MD, Phone: [phone] us Linda Cunningham MD LAB BLOOD ORDERABLES Final Resul t Performing Organization Address City/[facility]/ZIP Co de Phone Number [facility] 1 * Hm Colonoscopy (10/10/2020) Colonoscopy Normal Normal Comment:internal hemorrhoids , polyp, repeat in 5 years Historical Provider HEALTH MAINTENANCE Final Result * THIN PREP PAP, WITH HPV (03/01/2019 12:00 AM EDT) Historical Provider LAB CYTOLOGY ORDERABLES F inal Result Performing Organization Address City/[facility]/ZIP Co de Phone Number [facility] [address] [place] [address] from Last 3 Months or Most Recently Relevant to Health Maintenance Insurance [facility] , [address] [place], [place] [id number] MEDICARE Care Teams Finishing Technician Relationship Specialty Start Date End Date Linda Cunningham MD [address] [place] [address] PCP - General Internal Medicine 09/10/22
--- OUTSIDE RECORDS SUMMARY | 2025-03-15 12:29 | XMS_ITS | Encounter Summary ---
Author Organization [employer] Address [address] [facility] 7t [place] [address] Care Team Providers Care Enterprise Resource Planner Name Role Phone Linda Cunningham MD Primary Care Provider [phone] Encounter Details Date Type Department Care Team (Late st Contact Info) Description 08/04/2024 Orders Only [facility] MEDICAL [address] [place] [address] ProviderTonya MD Social History Tobacco Use Types [...] the past 12 months, has t he [employer], gas, oil or water company threatened to [...] 3:00 PM EDT Office Visit [facility] MEDICAL [address] [place] [address] Linda Cunningham MD [address] [place] [address] 04/02/2025 3:00 PM EDT Clinical Support [facility] NUTRITION [address] [place] [address] Abby Velazquez, GILL [address] [place] [address] documented as of this encounter Procedures Procedure [...] documented as of this encounter Care Teams Enterprise Resource Planner Relationship Specialty Start Date End Date Linda Cunningham MD [address] [place] [address] PCP - General Internal Medicine 09/10/22 documented as of this encounter
--- OUTSIDE RECORDS SUMMARY | 2025-03-15 12:29 | XMS_ITS | Clinical Summary ---
Author Organization [facility] Address [address] [address] Phone Care Team Providers Care Airline Lounge Receptionist Name Role Phone Linda Cunningham MD Primary Care Provider [phone] Allergies Active Allergy Reactions Criticality Noted Date [...] Active Problems Problem Noted Date Diagnosed Date [place] adverse reaction 11/08/2020 Acute nontraumatic kidney injury [...] Visit [facility] [address] [phone] Lino Griffith MD [address] [phone] Health Maintenance Due Date Last Done Comments Breast Cancer Screening 1966 Hepatitis B Vaccine (1 of 3 - 19+ 3-dose series) 1985 Pneumococcal Vaccine: 50+ Ye ars (1 of 2 - PCV) 1985 Colorectal Cancer Screening: Annual FOBT 2015 Colorectal Cancer Screening: Colonoscopy 2015 Colorectal Cancer Screening: Sigmoidoscopy 2015 Influenza Vaccine (#1) 2025 3, 05/22/2019, 08/05/2012, Additional history exists [place] [address] Medicare Medicare [employer] Care Teams Airline Lounge Receptionist Relationship Specialty Start Date End Date Linda Cunningham MD [address] [place] [id number] PCP - General 07/29/20
--- OUTSIDE RECORDS SUMMARY | 2025-03-15 12:29 | XMS_ITS | Encounter Summary ---
Author Organization [employer] Address 75 [facility] 7t [place] [address] Care Team Providers Care Kick Boxer Name Role Phone Linda Cunningham MD Primary Care Provider [phone] Encounter Details Date Type Department Care Team (Late st Contact Info) Description 07/07/2024 Orders Only [facility] MEDICAL [address] [place] [address] ProviderTonya MD Social History Tobacco Use Types [...] is your housing situation today? I have sharrondavid kemp 05/07/[address] you [...] the past 12 months, has t he [employer], gas, oil or water company threatened to [...] Description 03/22/2025 3:00 PM EDT Office [facility] [place] [place] [address] [place] [address] Linda Cunningham MD [address] [place] [address] 04/02/2025 3:00 PM EDT Clinical Support [facility] [place] [address] [place] [address] Abby Velazquez, GILL [address] [place] [address] documented as of this encounter Procedures Procedure [...] documented as of this encounter Care Teams Kick Boxer Relationship Specialty Start Date End Date Linda Cunningham MD [address] [place] [address] PCP - General Internal Medicine 09/10/22 documented as of this encounter
--- OUTSIDE RECORDS SUMMARY | 2025-03-15 12:29 | XMS_ITS | Encounter Summary ---
Author Organization [employer] Address [address] [facility] 7t [place] [address] Care Team Providers Care Cloth Opener Hand Name Role Phone Linda Cunningham MD Primary Care Provider [phone] Encounter Details Date Type Department Care Team (Late st Contact Info) Description 06/11/2024 Orders Only [facility] [address] [place] [address] iLnda Cunningham MD [address] [place] [address] Social History Tobacco Use Types Packs/Day Years [...] Description 03/22/2025 3:00 PM EDT Office Visit [facility] MEDICAL [address] [place] [address] Linda Cunningham MD [address] [place] [address] 04/02/2025 3:00 PM EDT Clinical Support [facility] NUTRITION [address] [place] [address] Abby Velazquez, GILL [address] [place] [address] documented as of this encounter Procedures Procedure [...] documented as of this encounter Care Teams Cloth Opener Hand Relationship Specialty Start Date End Date Linda Cunningham MD [address] [place] [address] PCP - General Internal Medicine 09/10/22 documented as of this encounter
== END 2025-03-15 11:07 | disposition home or self-care (01) ==
LOC: HO.LAB 11:06
PROVIDERS: Visit Provider Psychiatry & Neurology Psychiatry
DX: Z79.899 Other long term (current) drug therapy (principal)
CPT/HCPCS: 36415; 85025

== ENCOUNTER 2025-04-05 14:32 | Outpatient (AMB) | payer OTHER, MEDICARE, SELFPAY ==
--- OUTSIDE RECORDS SUMMARY | 2025-04-02 15:00 | XMS_ITS | Encounter Summary ---
Author Organization [employer] Address 75 [facility] 7 [place] [address] Care Team Providers Care Icu Manager Name Role Phone Linda Cunningham MD Primary Care Provider [phone] Reason for Visit * Reason Comments Nutrition Counseling Weight Management Encounter Details Date Type Department Care Team (Late st Contact Info) Description 04/02/2025 3:00 PM EDT Clinical Support [facility] NUTRITION [address] [place] [address] Abyb Velazquez, [address] [place] [address] Social History Tobacco Use Types Packs/Day Years Used Date Smoking Tobacco: Former Cigarettes Smokeless Tobacco: Never Alcohol Use Standard Drinks/Week Comments Yes 0 [...] Answer Date Recorded Patient Health Questionnaire-9 Score 16 03/22/2025 Patient Health Questionnaire-9 Score 16 03/22/2025 Last PHQ-9: Questionnaire Data Not on file 0 03/22/2025 Housing Stability Answer Date Recorded What is [...] t he electric, gas, oil or water [employer] threatened to shut off services in your home? No 12/13/2024 Depression Answer Date Recorded Patient Health Questionnaire-2 Score 4 03/22/2025 Internet Access Answer Date Recorded Internet Access [...] Care Team (Late st Contact Info) Description 06/22/2025 3:30 PM EST Office Visit [facility] MEDICAL [address] [place] [address] Linda Cunningham MD [address] [place] [address] 06/25/2025 3:00 PM EST Clinical Support [place] [facility] NUTRITION [address] [place] [address] Abby Velazquez, GILL [address] [facility] [place] [address] documented as of this encounter Visit Diagnoses Not on filedocumented in this encounter Additional Health Concerns Assessment Noted Time PHQ-9 Depression Total Score: 16 025 3:13 PM EDT documented as of this encounter Care Teams Icu Manager Relationship Specialty Start Date End Date Linda Cunningham MD [address] [place] [address] PCP - General Internal Medicine 09/10/22 documented as of this encounter
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
--- OUTSIDE RECORDS SUMMARY | 2025-04-05 16:17 | XMS_ITS | Encounter Summary ---
Author Organization [employer] Address [address] [facility] 7t [place] [address] Care Team Providers Care Car Dealer Name Role Phone Linda Cunningham MD Primary Care Provider Encounter Details Date Type Department Care Team (Late st Contact Info) Description 08/04/[address] [facility] MEDICAL [address] [place] [address] ProviderTonya MD Social History Tobacco Use Types [...] the past 12 months, has t he [employer], gas, oil or water company threatened to [...] Description 06/22/2025 3:30 PM EST Office Visit [facility] MEDICAL [address] [place] [address] Linda Cunningham MD [address] [place] [address] 06/25/2025 3:00 PM EST Clinical Support [facility] NUTRITION [address] [place] [address] Abby Velazquez, GILL [address] [place] [address] documented as of this encounter Procedures Procedure [...] documented as of this encounter Care Teams Car Dealer Relationship Specialty Start Date End Date Linda Cunningham MD [address] [place] [address] PCP - General Internal Medicine 09/10/22 documented as of this encounter
--- OUTSIDE RECORDS SUMMARY | 2025-04-05 16:17 | XMS_ITS | Encounter Summary ---
Author Organization [employer] Address 75 [facility] 7t [place] [address] Care Team Providers Care Asphalt Plant Worker Name Role Phone Linda Cunningham MD Primary Care Provider [phone] Encounter Details Date Type Department Care Team (Late st Contact Info) Description 06/11/2024 Orders Only [facility] [address] [place] [address] Linda Cunningham MD [address] [place] [address] Social History Tobacco Use Types Packs/Day Years [...] Description 06/22/2025 3:30 PM EST Office Visit [facility] MEDICAL [address] [place] [address] Linda Cunningham MD [address] [place] [address] 06/25/2025 3:00 PM EST Clinical Support [facility] NUTRITION [address] [place] [address] Abby Velazquez, GILL [address] [place] [address] documented as of this encounter Procedures Procedure [...] documented as of this encounter Care Teams Asphalt Plant Worker Relationship Specialty Start Date End Date Linda Cunningham MD [address] [place] [address] PCP - General Internal Medicine 2/23/23 documented as of this encounter
--- OUTSIDE RECORDS SUMMARY | 2025-04-05 16:17 | XMS_ITS | Encounter Summary ---
Author Organization [employer] Address 75 [facility] 7t [place] [address] Care Team Providers Care Farm Marketer Name Role Phone Linda Cunningham MD Primary Care Provider [phone] Encounter Details Date Type Department Care Team (Late st Contact Info) Description 07/07/[address] [facility] MEDICAL [address] [place] [address] ProviderTonya MD Social History Tobacco Use Types [...] the past 12 months, has t he [employer], gas, oil or water company threatened to [...] Description 06/22/2025 3:30 PM EST Office Visit [facility] MEDICAL [address] [place] [address] Linda Cunningham MD [address] [place] [address] 06/25/2025 3:00 PM EST Clinical Support [facility] NUTRITION [address] [place] [address] Abby Velazquez, GILL [address] [place] [address] documented as of this encounter Procedures Procedure [...] documented as of this encounter Care Teams Farm Marketer Relationship Specialty Start Date End Date Linda Cunningham MD [address] [place] [address] PCP - General Internal Medicine 09/10/22 documented as of this encounter
--- OUTSIDE RECORDS SUMMARY | 2025-04-05 16:17 | XMS_ITS | Encounter Summary ---
Author Organization [employer] Address 75 [facility] 7t [place] [address] Care Team Providers Care Mine Car Repairer Name Role Phone Linda Cunningham MD Primary Care Provider [phone] Encounter Details Date Type Department Care Team (Late st Contact Info) Description 05/10/[address] [facility] [place] [address] [place] [address] ProviderTonya MD Social History Tobacco Use Types [...] the past 12 months, has t he [employer], gas, oil or water company threatened to [...] Description 06/22/2025 3:30 PM EST Office Visit [facility] MEDICAL [address] [place] [address] Linda Cunningham MD [address] [place] [address] 06/25/2025 3:00 PM EST Clinical Support [facility] NUTRITION [address] [place] [address] Abby Velazquez, GILL [address] [place] [address] documented as of this encounter Procedures Procedure [...] documented as of this encounter Care Teams Mine Car Repairer Relationship Specialty Start Date End Date Linda Cunningham MD [address] [place] [address] PCP - General Internal Medicine 09/10/22 documented as of this encounter
--- OUTSIDE RECORDS SUMMARY | 2025-04-05 16:17 | XMS_ITS | Encounter Summary ---
Author Organization [employer] Address 75 [facility] 7t [place] [address] Care Team Providers Care Debt Collector Name Role Phone Linda Cunningham MD Primary Care Provider [phone] Encounter Details Date Type Department Care Team (Late st Contact Info) Description 03/23/2025 Results Follow-Up [facility] MEDICAL [address] [place] [address] Linda Cunningham MD [address] [place] [address] EGD Social History Tobacco Use Types Packs/Day Years [...] the past 12 months, has t he [employer], gas, oil or water company threatened to [...] Description 06/22/2025 3:30 PM EST Office Visit [facility] MEDICAL [address] [place] [address] Linda Cunningham MD [address] [place] [address] 06/25/2025 3:00 PM EST Clinical Support [facility] NUTRITION [address] [place] [address] Abby Velazquez, GILL [address] [place] [address] documented as of this encounter Visit Diagnoses Not on filedocumented in this encounter Additional Health Concerns Assessment Noted Time PHQ-9 Depression Total Score: 16 025 3:13 PM EDT documented as of this encounter Care Teams Debt Collector Relationship Specialty Start Date End Date Linda Cunningham MD [address] [place] [address] PCP - General Internal Medicine 09/10/22 documented as of this encounter
--- OUTSIDE RECORDS SUMMARY | 2025-04-05 16:17 | XMS_ITS | Encounter Summary ---
Author Organization [employer] Address 75 [facility] 7t [place] [address] Care Team Providers Care Tests Superintendent Name Role Phone Linda Cunningham MD Primary Care Provider [phone] Encounter Details Date Type Department Care Team (Late st Contact Info) Description 03/23/2025 Orders Only [facility] [address] [place] [address] Linda Cunningham MD [address] [place] [address] Social History Tobacco Use Types Packs/Day Years [...] the past 12 months, has t he [employer], gas, oil or water company threatened to [...] 06/22/2025 3:30 PM EST Office Visit [facility] MEDICAL [address] [place] [address] Linda Cunningham MD [address] [place] [address] 06/25/2025 3:00 PM EST Clinical Support [facility] NUTRITION [address] [place] [address] Abby Velazquez, GILL [address] [place] [address] documented as of this encounter Procedures Procedure Name Priority Date/Time Associated Diagnosis Comments EGD Routine 09/23/2023 9:01 AM EST documented in this encounter Results * EGD (09/23/2023 9:01 AM EST) Anatomical Region Laterality Modality Endoscopy us Linda Cunningham MD ENDOSCOPY PROCEDURE ORDERABLES F inal Result documented in this encounter Visit Diagnoses Not on filedocumented in this encounter Additional Health Concerns Assessment Noted Time PHQ-9 Depression Total Score: 16 03/22/ 025 3:13 PM EDT documented as of this encounter Care Teams Tests Superintendent Relationship Specialty Start Date End Date Linda Cunningham MD [address] [place] [address] PCP - General Internal Medicine 09/10/22 documented as of this encounter
--- OUTSIDE RECORDS SUMMARY | 2025-04-05 16:17 | XMS_ITS | Encounter Summary ---
Author Organization [employer] Address [address] [facility] 7t [place] [address] Care Team Providers Care Furniture Mover Helper Name Role Phone Linda Cunningham MD Primary Care Provider [phone] Encounter Details Date Type Department Care Team (Late st Contact Info) Description 09/06/2024 Orders Only [facility] MEDICAL [address] [place] [address] ProviderTonya MD Social History Tobacco Use Types [...] the past 12 months, has t he [employer], gas, oil or water company threatened to [...] Description 06/22/2025 3:30 PM EST Office Visit [facility] MEDICAL [address] [place] [address] Linda Cunningham MD [address] [place] [address] 06/25/2025 3:00 PM EST Clinical Support [facility] NUTRITION [address] [place] [address] Abby Velazquez, GILL [address] [place] [address] documented as of this encounter Procedures Procedure [...] documented as of this encounter Care Teams Furniture Mover Helper Relationship Specialty Start Date End Date Linda Cunningham MD [address] [place] [address] PCP - General Internal Medicine 09/10/22 documented as of this encounter
--- OUTSIDE RECORDS SUMMARY | 2025-04-05 16:17 | XMS_ITS | Encounter Summary ---
Author Organization [employer] Address [address] [facility] 7t [place] [address] Care Team Providers Care Neon Glass Bender Name Role Phone Linda Cunningham MD Primary Care Provider [phone] Encounter Details Date Type Department Care Team (Late st Contact Info) Description 10/30/2024 Orders Only [facility] [address] [place] [address] Linda Cunningham MD [address] [place] [address] Social History Tobacco Use Types Packs/Day Years [...] Description 06/22/2025 3:30 PM EST Office Visit [facility] MEDICAL [address] [place] [address] Linda Cunningham MD [address] [place] [address] 06/25/2025 3:00 PM EST Clinical Support [facility] NUTRITION [address] [place] [address] [place] [address] documented as of this encounter Procedures Procedure [...] (Negative) Lay letter mailed to patient WSN: [id number] Ordering Physician: Linda Cunningham Dictated By: Geremias Rivas MD Dictated Date/Time: 11/29/24 2:11 pm Reviewed By: Geremias Rivas MD Signed By: Geremias Rivas MD Signed Date/Time: 11/29/24 2:11 pm Transcribed By: CSTyrone Estimator Lumber Date/Time: 11/29/24 2:04 pm Birads: Procedure Note [...] (Negative) Lay letter mailed to patient WSN: [id number] Ordering Physician: Linda Cunningham Dictated By: Geremias Rivas MD Dictated Date/Time: 11/29/24 2:11 pm Reviewed By: Geremias Rivas MD Signed By: Geremias Rivas MD Signed Date/Time: 11/29/24 2:11 pm Transcribed By: CSTyrone Estimator Lumber Date/Time: 11/29/24 2:04 pm Birads: Linda Cunningham [...] documented as of this encounter Care Teams Neon Glass Bender Relationship Specialty Start Date End Date Linda Cunningham MD [address] [place] [address] PCP - General Internal Medicine 09/10/22 documented as of this encounter
--- OUTSIDE RECORDS SUMMARY | 2025-04-05 16:17 | XMS_ITS | Clinical Summary ---
Author Organization [employer] Address 75 [facility] 7t [place] [address] Care Team Providers Care Folder Machine Adjuster Name Role Phone Linda Cunningham MD Primary Care Provider [phone] Allergies Active Allergy Reactions Criticality Noted Date [...] SPLIT 90 tablet 3 02/27/20 25 Active busPIRone (Buspar) 5 MG tablet Take 1 tablet by mouth 2 times daily. 03/18/20 25 Active minoxidil (Loniten) 2.5 MG tablet TAKE ONE TABLET BY MOUTH EVERY DAY 30 tablet 03/23/20 25 Active minoxidil (Loniten) 2.5 MG tablet TAKE ONE TABLET BY MOUTH EVERY DAY 30 tablet 02/27/20 25 025 Discontinued Active Problems Problem Noted [...] organization. Date Type Department Care Team Description 04/02/2025 3:00 PM EDT Clinical Support [facility] NUTRITION [address] [place] [address] 03/23/[address] [address] Linda Cunningham MD 03/23/2025 Results Follow-Up [address] [address] Linda Cunningham MD EGD 03/23/2025 Orders Only [facility] [address] [place] [address] Linda Cunningham MD 03/22/2025 3:00 PM EDT Office Visit [address] [address] Linda Cunningham MD Routine general medical examination at health care facility (Primary Dx); Obesity (BMI 35.0-39.9 without comorbidity); Bipolar 1 disorder (CMS/HCC); Hyperglycemia; PTSD (post-traumatic stress disorder); Vitamin D deficiency; Sleep apnea in adult; Anxiety; High serum creatinine; Fatty (change of) liver, not elsewhere classified 02/24/[address] [address] Concepción Burch DO 02/24/[address] [address] Linda Cunningham MD Obesity (BMI 35.0-39.9 without comorbidity) 02/12/2025 2:15 PM EDT Clinical Support [facility] NUTRITION [address] [place] [address] Abby Velazquez, GILL Class 3 severe obesity due to excess calories without serious comorbidity with body mass index (BMI) of 40.0 to 44.9 in adult (Primary Dx); Metabolic dysfunction-associat ed steatotic liver 02/12/2025 Travel 01/23/[address] [address] Mindy Elena CNP from Last 3 Months Immunizations Immunization Administration [...] Sign Reading Time Taken Comments Blood Pressure 102/70 03/22/2025 3:20 PM EDT Pulse 78 03/22/2025 3:20 PM EDT Temperature 36.3 C (97.3 F) 03/22/2025 3:20 PM EDT Respiratory Rate 16 03/22/2025 3:20 PM EDT Oxygen Saturation 95% 12/13/2024 9:53 AM EDT Inhaled Oxygen Concentration - - Weight 109 kg (240 lb) 03/22/2025 3:20 PM EDT Height 165.1 cm (5' 5 ) 03/22/2025 3:20 PM EDT Body Mass Index 39.94 03/22/2025 3:20 PM EDT Plan of Treatment Upcoming Encounters Date Type Department Care Team (Late Contact Info) Description 06/22/2025 3:30 PM EST Office Visit [facility] MEDICAL [address] [place] [address] Linda Cunningham MD [address] [place] [address] 06/25/2025 3:00 PM EST Clinical Support [facility] NUTRITION [address] [place] [address] Abby Velazquez, GILL [address] [place] [address] Health Maintenance Due Date Last Done Comments [...] 03/01/2024 03/01/2019, 09/08/2013 COVID-19 Vaccine ( season) 2025 06/22/2022, 06/06/2021, 10/31/2020, Additional history exists Influenza Vaccine (#1) 2025 , 05/07/2023, 04/08/2020, Additional history exists Depression Monitoring 09/19/2025 03/22/2025, 025 Diabetes: Hemoglobin A1C 09/26/2025 025, 11/16/2023, 09/16/2022, Additional history exists Alcohol/Substance Use Screening 12/13/2025 12/13/2024 Disability Screening 12/13/2025 12/13/2024 SDOH Screening 12/13/2025 12/13/2024 Tobacco Screening 03/22/2026 03/22/2025 Mammogram 11/29/2026 11/29/2024, 12/2018, 03/24/2019 Lipid Panel 11/15/2028 11/16/2023, 07/2022, 07/28/2021, Additional history exists Colonoscopy 10/10/2030 [...] Recently Relevant to Health Maintenance Results * BI Mammogram Screening Tomosynthesis Bilateral [...] (Negative) Lay letter mailed to patient WSN: [id number] Ordering Physician: Linda Cunningham Dictated By: Geremias Rivas MD Dictated Date/Time: 11/29/24 2:11 pm Reviewed By: Geremias Rivas MD Signed By: Geremias Rivas MD Signed Date/Time: 11/29/24 2:11 pm Transcribed By: PRAVEEN Export Documents Clerk Date/Time: 11/29/24 2:04 pm Birads: Procedure Note [...] (Negative) Lay letter mailed to patient WSN: [id number] Ordering Physician: Linda Cunningham Dictated By: Geremias Rivas MD Dictated Date/Time: 11/29/24 2:11 pm Reviewed By: Geremias Rivas MD Signed By: Geremias Rivas MD Signed Date/Time: 11/29/24 2:11 pm Transcribed By: PRAVEEN Export Documents Clerk Date/Time: 11/29/24 2:04 pm Birads: Linda Cunningham [...] - 09/27/2024 6:05 AM EDT [facility] [id number] Accounting Generalist: Kaia Gaston MD, Phone: [phone] Linda Cunningham MD LAB BLOOD ORDERABLES Final [...] - 11/17/2023 12:05 AM EDT Performed at: [facility] [id number] Accounting Generalist: Kaia Gaston MD, Phone: [phone] us Linda Cunningham MD LAB BLOOD ORDERABLES Final Resul t [facility] 1 * Hm Colonoscopy (10/10/2020) Colonoscopy Normal Normal Comment:internal hemorrhoids , polyp, repeat in 5 years Historical Provider HEALTH MAINTENANCE Final Result * THIN PREP PAP, WITH HPV (03/01/2019 12:00 AM EDT) Historical Provider LAB CYTOLOGY ORDERABLES F inal Result [facility] [address] [place] [address] from Last 3 Months or Most Recently Relevant to Health Maintenance Insurance [facility] , [id number] [place] [address] [place] [id number] Care Teams Folder Machine Adjuster Relationship Specialty Start Date End Date Linda Cunningham MD [address] [place] [address] PCP - General Internal Medicine 09/10/22
--- OUTSIDE RECORDS SUMMARY | 2025-04-05 16:17 | XMS_ITS | Clinical Summary ---
Author Organization [facility] Address [address] [phone] Phone Care Team Providers Care Patternmaker Apprentice Metal Name Role Phone Linda Cunningham MD Primary Care Provider [phone] Allergies Active Allergy Reactions Criticality Noted Date [...] Active Problems Problem Noted Date Diagnosed Date [place] adverse reaction 11/08/2020 Acute nontraumatic kidney injury [...] Visit [facility] [address] [phone] Lino Griffith MD [address] [phone] Health Maintenance Due Date Last Done Comments Breast Cancer Screening 1966 Hepatitis B Vaccine (1 of 3 - 19+ 3-dose series) 1985 Pneumococcal Vaccine: 50+ Ye ars (1 of 2 - PCV) 1985 Colorectal Cancer Screening: Annual FOBT 2015 Colorectal Cancer Screening: Colonoscopy 2015 Colorectal Cancer Screening: Sigmoidoscopy 2015 Influenza Vaccine (#1) 2025 3, 05/22/2019, 08/05/2012, Additional history [place] [address] [facility] Care Teams Patternmaker Apprentice Metal Relationship Specialty Start Date End Date Linda Cunningham MD [address] [place] [id number] PCP - General 07/29/20
== END 2025-04-05 15:54 | disposition home or self-care (01) ==
LOC: HO.HOP 14:32
PROVIDERS: PCP Internal Medicine; Visit Provider Psychiatry & Neurology Psychiatry
DX: F31.77 Bipolar disorder, in partial remission, most recent episode mixed (principal); F42.9 Obsessive-compulsive disorder, unspecified; F43.10 Post-traumatic stress disorder, unspecified; Z79.899 Other long term (current) drug therapy
CPT/HCPCS: 90833; 99213

== ENCOUNTER 2025-05-16 14:28 | Outpatient (AMB) | payer OTHER, MEDICARE, SELFPAY ==
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
--- OUTSIDE RECORDS SUMMARY | 2025-05-16 18:49 | XMS_ITS | Clinical Summary ---
Author Organization [employer] Address [address] [facility] 7t [place] [address] Care Team Providers Care Dermatologist Name Role Phone Linda Cunningham MD Primary Care Provider [phone] Allergies Active Allergy Reactions Criticality Noted Date [...] TABLET BY MOUTH EVERY DAY 30 tablet 04/26/20 25 Active minoxidil (Loniten) 2.5 MG tablet TAKE ONE TABLET BY MOUTH EVERY DAY 30 tablet 03/23/20 25 025 Discontinued Active Problems Problem Noted Date Diagnosed Date Dysuria 12/13/2024 Gross hematuria 12/13/2024 Acute renal failure 12/13/2024 Anxiety 10/06/2023 Overview (10/06/2023): gets abdominal pain when anxious Mixed obsessional thoughts and acts 10/06/2023 Bipolar 1 disorder (CMS/HCC) 09/11/2022 Obesity (BMI 35.0-39.9 without comorbidity) 08/20 PTSD (post-traumatic stress disorder) 09/11/2022 Sleep apnea in adult 09/11/2022 Steatosis of liver 09/11/2022 Hypothyroidism 11/05/2020 High serum creatinine 11/05/2020 Stage 3 chronic kidney disease (CMS/HCC) 021 Encounters * This document contains information received from the source organization and may not represent a complete record from that organization. Date Type Department Care Team Description 04/25/2025 Refill [facility] MEDICAL [address] [place] [address] Linda Cunningham MD 04/02/2025 3:00 PM EDT Clinical Support [facility] NUTRITION [address] [place] [address] Abby Velazquez, GILL Class 2 obesity due to excess calories without serious comorbidity with body mass index (BMI) of 39.0 to 39.9 in adult (Primary Dx); Steatosis of liver 03/23/[address] [address] Linda Cunningham MD 03/23/2025 Results Follow-Up [address] [address] Linda Cunningham MD EGD 03/23/2025 Orders Only [facility] [address] [place] [address] Linda Cunningham MD 03/22/2025 3:00 PM EDT Office Visit [address] [address] Linda Cunningham MD Routine general medical examination at health care facility (Primary Dx); Obesity (BMI 35.0-39.9 without comorbidity); Bipolar 1 disorder (CMS/HCC); Hyperglycemia; PTSD (post-traumatic stress disorder); Vitamin D deficiency; Sleep apnea in adult; Anxiety; High serum creatinine; Fatty (change of) liver, not elsewhere classified 02/24/[address] [address] Concepción Burch DO 02/24/[address] [address] Linda Cunningham MD Obesity (BMI 35.0-39.9 without comorbidity) from Last 3 Months Immunizations Immunization Administration [...] the past 12 months, has t he [employer], [employer]wolf, oil or water Pricing Assistant threatened to shut off services in your [...] Description 06/22/2025 3:30 PM EST Office Visit [facility] MEDICAL [address] [place] [address] Linda Cunningham MD [address] [place] [address] 06/25/2025 3:00 PM EST Clinical Support [facility] NUTRITION [address] [facility] [place] [address] [place] [address] Health Maintenance Due Date Last Done Comments [...] 11/29/2024, 12/2018, 03/24/2019 Lipid Panel 11/15/2028 11/16/2023, 03/0 [...] (Negative) Lay letter mailed to patient WSN: [id number] Ordering Physician: Linda Cunningham Dictated By: Geremias Rivas MD Dictated Date/Time: 11/29/24 2:11 pm Reviewed By: Geremias Rivas MD Signed By: Geremias Rivas MD Signed Date/Time: 11/29/24 2:11 pm Transcribed By: CSB Financial Sales Consultant Date/Time: 11/29/24 2:04 pm Birads: Procedure Note [...] (Negative) Lay letter mailed to patient WSN: [id number] Ordering Physician: Linda Cunningham Dictated By: Geremias Rivas MD Dictated Date/Time: 11/29/24 2:11 pm Reviewed By: Geremias Rivas MD Signed By: Geremias Rivas MD Signed Date/Time: 11/29/24 2:11 pm Transcribed By: CSB Financial Sales Consultant Date/Time: 11/29/24 2:04 pm Birads: Linda Cunningham [...] - 09/27/2024 6:05 AM EDT Performed at: [facility] [id number] Lens Dotter: Kaia Gaston MD, Phone: [phone] Linda Cunningham MD LAB BLOOD ORDERABLES Final Resul t Performing Organization Address City/[facility] de Phone Number [id number] 1 * (ABNORMAL) [...] - 11/17/2023 12:05 AM EDT Performed at: [facility] [id number] Lens Dotter: Kaia Gaston MD, Phone: [phone] us Linda Cunningham MD LAB BLOOD ORDERABLES Final Resul t Performing Organization Address City/[facility]/ZIP Co de Phone Number [facility] 1 * Hm Colonoscopy (10/10/2020) Colonoscopy Normal Normal Comment:internal hemorrhoids , polyp, repeat in 5 years us Historical Provider HEALTH MAINTENANCE Final Result * THIN PREP PAP, WITH HPV (03/01/2019 12:00 AM EDT) us Historical Provider LAB CYTOLOGY ORDERABLES F inal Result [facility] [address] [place] [address] from Last 3 Months or Most Recently Relevant to Health Maintenance Insurance , [address] [id number] [place] [id number] Care Teams Dermatologist Relationship Specialty Start Date End Date Linda Cunningham MD [address] [place] [address] PCP - General Internal Medicine 09/10/22
--- OUTSIDE RECORDS SUMMARY | 2025-05-16 18:49 | XMS_ITS | Encounter Summary ---
Author Organization [employer] Address [address] [facility] 7t [place] [address] Care Team Providers Care Informatica Architect Name Role Phone Linda Cunningham MD Primary Care Provider [phone] Encounter Details Date Type Department Care Team (Late st Contact Info) Description 03/23/2025 Orders Only [facility] [address] [place] [address] Linda Cunningham MD [address] [place] [address] Social History Tobacco Use Types Packs/Day Years [...] the past 12 months, has t he [employer], gas, oil or water company threatened to [...] 06/22/2025 3:30 PM EST Office Visit [facility] MEDICAL [address] [place] [address] Linda Cunningham MD [address] [place] [address] 06/25/2025 3:00 PM EST Clinical Support [facility] NUTRITION [address] [place] [address] Abby Velazquez, GILL [address] [place] [address] documented as of this encounter Procedures Procedure [...] documented as of this encounter Care Teams Informatica Architect Relationship Specialty Start Date End Date Linda Cunningham MD [address] [place] [address] PCP - General Internal Medicine 09/10/22 documented as of this encounter
--- OUTSIDE RECORDS SUMMARY | 2025-05-16 18:49 | XMS_ITS | Encounter Summary ---
Author Organization [employer] Address [address] [facility] 7t [place] [address] Care Team Providers Care Hotbed Operator Name Role Phone Linda Cunningham MD Primary Care Provider [phone] Encounter Details Date Type Department Care Team (Late st Contact Info) Description 09/06/2024 Orders Only [facility] MEDICAL [address] [place] [address] ProviderTonya MD Social History Tobacco Use Types [...] t he electric, gas, oil or water [employer] threatened to shut off services in your [...] 06/22/2025 3:30 PM EST Office Visit [facility] MEDICAL [address] [place] [address] Linda Cunningham MD [address] [place] [address] 06/25/2025 3:00 PM EST Clinical Support [facility] NUTRITION [address] [place] [address] Abby Velazquez, GILL [address] [place] [address] documented as of this encounter Procedures Procedure [...] documented as of this encounter Care Teams Hotbed Operator Relationship Specialty Start Date End Date Linda Cunningham MD [address] [place] [address] PCP - General Internal Medicine 09/10/22 documented as of this encounter
--- OUTSIDE RECORDS SUMMARY | 2025-05-16 18:49 | XMS_ITS | Encounter Summary ---
Author Organization [employer] Address [address] [facility] 7t [place] [address] Care Team Providers Care Supervisor Glycerin Name Role Phone Linda Cunningham MD Primary Care Provider [phone] Encounter Details Date Type Department Care Team (Late st Contact Info) Description 07/07/2024 Orders Only [facility] MEDICAL [address] [place] [address] ProviderTonya MD Social History Tobacco Use Types [...] the past 12 months, has t he [employer], gas, oil or water company threatened to [...] Description 06/22/2025 3:30 PM EST Office Visit [facility] MEDICAL [address] [place] [address] Linda Cunningham MD [address] [place] [address] 06/25/2025 3:00 PM EST Clinical Support [facility] NUTRITION [address] [place] [address] Abby Velazquez, GILL [address] [place] [address] documented as of this encounter Procedures Procedure [...] documented as of this encounter Care Teams Supervisor Glycerin Relationship Specialty Start Date End Date Linda Cunningham MD [address] [place] [address] PCP - General Internal Medicine 09/10/22 documented as of this encounter
--- OUTSIDE RECORDS SUMMARY | 2025-05-16 18:49 | XMS_ITS | Encounter Summary ---
Author Organization [employer] Address [address] [facility] 7t [place] [address] Care Team Providers Care Feather Sawyer Name Role Phone Linda Cunningham MD Primary Care Provider [phone] Encounter Details Date Type Department Care Team (Late st Contact Info) Description 03/23/2025 Results Follow-Up [facility] MEDICAL [address] [place] [address] Linda Cunningham MD [address] [place] [address] EGD Social History Tobacco Use Types Packs/Day [...] the past 12 months, has t he [employer], gas, oil or water company threatened [...] Description 06/22/2025 3:30 PM EST Office Visit [place] MEDICAL [address] [place] [address] Linda Cunningham MD [address] [place] [address] 06/25/2025 3:00 PM EST Clinical Support [facility] NUTRITION [address] [place] [address] Abby Velazquez, GILL [address] [place] [address] documented as of this encounter Visit Diagnoses Not on filedocumented in this encounter Additional Health Concerns Assessment Noted Time PHQ-9 Depression Total Score: 16 025 3:13 PM EDT documented as of this encounter Care Teams Feather Sawyer Relationship Specialty Start Date End Date Linda Cunningham MD 73 [place] [address] PCP - General Internal Medicine 09/10/22 documented as of this encounter
--- OUTSIDE RECORDS SUMMARY | 2025-05-16 18:49 | XMS_ITS | Encounter Summary ---
Author Organization [employer] Address [address] [facility] 7t [place] [address] Care Team Providers Care Rouge Presser Name Role Phone Linda Cunningham MD Primary Care Provider [phone] Encounter Details Date Type Department Care Team (Late st Contact Info) Description 05/10/[address] [facility] MEDICAL [address] [place] [address] ProviderTonya MD Social History Tobacco Use Types [...] t he electric, gas, oil or water [employer] threatened to shut off services in your [...] PM EST Office Visit [facility] MEDICAL [address] [place] [address] Linda Cunningham MD [address] [place] [address] 06/25/2025 3:00 PM EST Clinical Support [facility] NUTRITION [address] [place] [address] Abby Velazquez, GILL [address] [place] [address] documented as of this encounter Procedures Procedure [...] documented as of this encounter Care Teams Rouge Presser Relationship Specialty Start Date End Date Linda Cunningham MD [address] [place] [address] PCP - General Internal Medicine 09/10/22 documented as of this encounter
--- OUTSIDE RECORDS SUMMARY | 2025-05-16 18:49 | XMS_ITS | Encounter Summary ---
Author Organization [employer] Address [address] [facility] 7t [place] [address] Care Team Providers Care Insurance Agency Sales Manager Name Role Phone Linda Cunningham MD Primary Care Provider [phone] Encounter Details Date Type Department Care Team (Late st Contact Info) Description 06/11/2024 Orders Only [facility] [address] [place] [address] Linda Cunningham MD [address] [place] [address] Social History Tobacco Use Types Packs/Day Years [...] Description 06/22/2025 3:30 PM EST Office Visit [facility] MEDICAL [address] [place] [address] Linda Cunningham MD [address] [place] [address] 06/25/2025 3:00 PM EST Clinical Support [facility] NUTRITION [address] [place] [address] Abby Velazquez, GILL [address] [place] [address] documented as of this encounter Procedures Procedure [...] documented as of this encounter Care Teams Insurance Agency Sales Manager Relationship Specialty Start Date End Date Linda Cunningham MD [address] [place] [address] PCP - General Internal Medicine 2/23/23 documented as of this encounter
--- OUTSIDE RECORDS SUMMARY | 2025-05-16 18:49 | XMS_ITS | Encounter Summary ---
Author Organization [employer] Address [address] [facility] 7t [place] [address] Care Team Providers Care Inspector Canned Food Reconditioning Name Role Phone Linda Cunningham MD Primary Care Provider [phone] Encounter Details Date Type Department Care Team (Late st Contact Info) Description 10/30/2024 Orders Only [facility] [address] [place] [address] Linda Cunningham MD [address] [place] [address] Social History Tobacco Use Types Packs/Day Years [...] Description 06/22/2025 3:30 PM EST Office Visit [facility] MEDICAL [address] [place] [address] Linda Cunningham MD [address] [place] [address] 06/25/2025 3:00 PM EST Clinical Support [facility] NUTRITION [address] [place] [address] [place] [address] documented as of this encounter Procedures Procedure [...] (Negative) Lay letter mailed to patient WSN: [id number] Ordering Physician: Linda Cunningham Dictated By: Geremias Rivas MD Dictated Date/Time: 11/29/24 2:11 pm Reviewed By: Geremias Rivas MD Signed By: Geremias Rivas MD Signed Date/Time: 11/29/24 2:11 pm Transcribed By: CSTyrone Tip Banding Machine Operator Date/Time: 11/29/24 2:04 pm Birads: Procedure Note [...] (Negative) Lay letter mailed to patient WSN: [id number] Ordering Physician: Linda Cunningham Dictated By: Geremias Rivas MD Dictated Date/Time: 11/29/24 2:11 pm Reviewed By: Geremias Rivas MD Signed By: Geremias Rivas MD Signed Date/Time: 11/29/24 2:11 pm Transcribed By: CSTyrone Tip Banding Machine Operator Date/Time: 11/29/24 2:04 pm Birads: Linda Cunningham [...] documented as of this encounter Care Teams Inspector Canned Food Reconditioning Relationship Specialty Start Date End Date Linda Cunningham MD [address] [place] [address] PCP - General Internal Medicine 09/10/22 documented as of this encounter
--- OUTSIDE RECORDS SUMMARY | 2025-05-16 18:49 | XMS_ITS | Encounter Summary ---
Author Organization [employer] Address [address] [facility] 7t [place] [address] Care Team Providers Care Sofa Inspector Name Role Phone Linda Cunningham MD Primary Care Provider [phone] Encounter Details Date Type Department Care Team (Late st Contact Info) Description 08/04/[address] [facility] MEDICAL [address] [place] [address] ProviderTonya MD Social History Tobacco Use Types [...] the past 12 months, has t he [employer], gas, oil or water company threatened to [...] Description 06/22/2025 3:30 PM EST Office Visit [facility] MEDICAL [address] [place] [address] Linda Cunningham MD [address] [place] [address] 06/25/2025 3:00 PM EST Clinical Support [facility] NUTRITION [address] [place] [address] Abby Velazquez, GILL [address] [place] [address] documented as of this encounter Procedures Procedure [...] documented as of this encounter Care Teams Sofa Inspector Relationship Specialty Start Date End Date Linda Cunningham MD [address] [place] [address] PCP - General Internal Medicine 09/10/22 documented as of this encounter
--- OUTSIDE RECORDS SUMMARY | 2025-05-16 18:49 | XMS_ITS | Clinical Summary ---
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 [address] [phone] Lino Griffith MD [address] [phone] Health Maintenance Due Date Last Done Comments Breast Cancer Screening 1966 Hepatitis B Vaccine (1 of 3 - 19+ 3-dose series) 1985 Pneumococcal Vaccine: 50+ Ye ars (1 of 2 - PCV) 1985 Colorectal Cancer Screening: Annual FOBT 2015 Colorectal Cancer Screening: Colonoscopy 2015 Colorectal Cancer Screening: Sigmoidoscopy 2015 Influenza Vaccine (#1) 2025 3, 05/22/2019, 08/05/2012, Additional history exists [place] [address] Medicare Medicare [facility] Care Teams Aids Nurse Relationship Specialty Start Date End Date Linda Cunningham MD [address] [place] [address] PCP - General 07/29/20
== END 2025-05-16 15:13 | disposition home or self-care (01) ==
LOC: HO.HOP 14:28
PROVIDERS: PCP Internal Medicine; Visit Provider Psychiatry & Neurology Psychiatry
DX: F31.9 Bipolar disorder, unspecified (principal); F43.10 Post-traumatic stress disorder, unspecified; F42.9 Obsessive-compulsive disorder, unspecified
CPT/HCPCS: 99214

== ENCOUNTER 2025-05-18 11:27 | Outpatient (REF) | payer OTHER, MEDICARE, SELFPAY ==
[2025-05-18 11:42] LABS: MANUAL DIFF FLAG NO
[2025-05-18 12:56] LABS: Hematocrit 43.3 % (37.0-47.0); Hemoglobin 14.3 g/dl (12.0-16.0); Imm Gran Abs Auto 0.04 X10*3/uL (0.00-0.03); Imm Gran Pct Auto 0.4 % (0.0-0.4); Lymphocytes Absolute Auto 3.8 X10*3/uL (1.2-4.9); Mean Corpuscular HGB Conc 33.0 g/dl (31.0-35.0); Mean Corpuscular Hemoglobin 30.1 pg (27.0-33.0); Mean Corpuscular Volume 91.2 fL (80.0-98.0); NRBC Abs Auto 0.000 X10*3/uL (0.0-0.012); NRBC Pct Auto 0.0 /100WBC (0.0-0.2); Platelet Count 293 X10*3/uL (160-400); Red Blood Count 4.75 X10*6/uL (4.20-5.50); White Blood Count 9.2 X10*3/uL (4.8-10.8)
--- OUTSIDE RECORDS SUMMARY | 2025-05-18 13:08 | XMS_ITS | Encounter Summary ---
Author Organization [employer] Address [address] [facility] 7t [place] [address] Care Team Providers Care Power Line Lineman Name Role Phone Linda Cunningham MD Primary Care Provider [phone] Encounter Details Date Type Department Care Team (Late st Contact Info) Description 08/04/2024 Orders Only [facility] MEDICAL [address] [place] [address] ProviderTonya MD Social History Tobacco Use Types [...] t he electric, gas, oil or water [employer] threatened to shut off services in your [...] 06/22/2025 3:30 PM EST Office Visit [facility] MEDICAL [address] [place] [address] Linda Cunningham MD [address] [place] [address] 06/25/2025 3:00 PM EST Clinical Support [facility] NUTRITION [address] [place] [address] Abyb Velazquez, GILL [address] [place] [address] documented as of this encounter Procedures Procedure [...] documented as of this encounter Care Teams Power Line Lineman Relationship Specialty Start Date End Date Linda Cunningham MD [address] [place] [address] PCP - General Internal Medicine 09/10/22 documented as of this encounter
--- OUTSIDE RECORDS SUMMARY | 2025-05-18 13:08 | XMS_ITS | Encounter Summary ---
Author Organization [employer] Address 75 [facility] 7t [place] [address] Care Team Providers Care Embedded Systems Software Developer Name Role Phone Linda Cunningham MD Primary Care Provider [phone] Encounter Details Date Type Department Care Team (Late st Contact Info) Description 09/06/2024 Orders Only [facility] MEDICAL [address] [place] [address] ProviderTonya MD Social History Tobacco Use Types [...] t he electric, gas, oil or water [employer] threatened to shut off services in your [...] Description 06/22/2025 3:30 PM EST Office Visit [facility] MEDICAL [address] [place] [address] Linda Cunningham MD [address] [place] [address] 06/25/2025 3:00 PM EST Clinical Support [facility] NUTRITION [address] [place] [address] Abby Velazquez, GILL [address] [place] [address] documented as of this encounter Procedures Procedure [...] documented as of this encounter Care Teams Embedded Systems Software Developer Relationship Specialty Start Date End Date Linda Cunningham MD [address] [place] [address] PCP - General Internal Medicine 09/10/22 documented as of this encounter
--- OUTSIDE RECORDS SUMMARY | 2025-05-18 13:08 | XMS_ITS | Clinical Summary ---
Author Organization [facility] Address [address] [phone] Phone Care Team Providers Care Early Childhood Associate Teacher Name Role Phone Linda Cunningham MD Primary Care Provider [phone] Allergies Active Allergy Reactions Criticality Noted Date [...] Active Problems Problem Noted Date Diagnosed Date [place] adverse reaction 11/08/2020 Acute nontraumatic kidney injury [...] Visit [facility] [address] [phone] Lino Griffith MD [address] [phone] Health Maintenance Due Date Last Done Comments Breast Cancer Screening 1966 Hepatitis B Vaccine (1 of 3 - 19+ 3-dose series) 1985 Pneumococcal Vaccine: 50+ Ye ars (1 of 2 - PCV) 1985 Colorectal Cancer Screening: Annual FOBT 2015 Colorectal Cancer Screening: Colonoscopy 2015 Colorectal Cancer Screening: Sigmoidoscopy 2015 Influenza Vaccine (#1) 2025 3, 05/22/2019, 08/05/2012, Additional history [place] [address] Medicare Medicare [facility] Care Teams Early Childhood Associate Teacher Relationship Specialty Start Date End Date Linda Cunningham MD [address] [place] [address] PCP - General 07/29/20
--- OUTSIDE RECORDS SUMMARY | 2025-05-18 13:08 | XMS_ITS | Encounter Summary ---
Author Organization [employer] Address 75 [facility] 7t [place] [address] Care Team Providers Care Pin Maker Name Role Phone Linda Cunningham MD Primary Care Provider [phone] Encounter Details Date Type Department Care Team (Late st Contact Info) Description 07/07/2024 Orders Only [facility] MEDICAL [address] [place] [address] ProviderTonya MD Social History Tobacco Use Types [...] the past 12 months, has t he [employer], gas, oil or water company threatened to [...] Description 06/22/2025 3:30 PM EST Office Visit [facility] MEDICAL [address] [place] [address] Linda Cunningham MD [address] [place] [address] 06/25/2025 3:00 PM EST Clinical Support [facility] NUTRITION [address] [place] [address] Abby Velazquez, GILL [address] [place] [address] documented as of this encounter Procedures Procedure Name Priority Date/Time Associated Diagnosis Comments CBC WITH AUTO DIFFERENTIAL Routine 06/28/2024 7:43 AM EST documented in this encounter Results * CBC auto differential (06/28/2024 7:43 AM EST) Blood Venous blood specimen / Unknown us Historical Provider LAB BLOOD ORDERABLES Ynai l Result documented in this encounter Visit Diagnoses Not on filedocumented in this encounter Additional Health Concerns Assessment Noted Time PHQ-9 Depression Total Score: 15 024 11:05 AM EDT documented as of this encounter Care Teams Pin Maker Relationship Specialty Start Date End Date Linda Cunningham MD [address] [place] [address] PCP - General Internal Medicine 09/10/22 documented as of this encounter
--- OUTSIDE RECORDS SUMMARY | 2025-05-18 13:08 | XMS_ITS | Clinical Summary ---
Author Organization [employer] Address 75 [facility] 7t [place] [address] Care Team Providers Care Agricultural Pilot Name Role Phone Linda Cunningham MD Primary Care Provider [phone] Allergies Active Allergy Reactions Criticality Noted Date [...] Type Department Care Team Description 04/25/2025 Refill [facility] MEDICAL [address] [place] [address] Linda Cunningham MD 04/02/2025 3:00 PM EDT Clinical Support [facility] NUTRITION [address] [place] [address] Abby Velazquez, GILL Class 2 obesity due to excess calories without serious comorbidity with body mass index (BMI) of 39.0 to 39.9 in adult (Primary Dx); Steatosis of liver 03/23/[address] [address] Linda Cunningham MD 03/23/2025 Results Follow-Up [address] [address] Linda Cunningham MD EGD 03/23/2025 Orders Only [facility] [address] [place] [address] Linda Cunningham MD 03/22/2025 3:00 PM EDT Office Visit [address] [address] Linda Cunningham MD Routine general medical examination at health care facility (Primary Dx); Obesity (BMI 35.0-39.9 without comorbidity); Bipolar 1 disorder (CMS/HCC); Hyperglycemia; PTSD (post-traumatic stress disorder); Vitamin D deficiency; Sleep apnea in adult; Anxiety; High serum creatinine; Fatty (change of) liver, not elsewhere classified 02/24/[address] [address] Concepción Burch DO 02/24/[address] [address] Linda Cunningham MD Obesity (BMI 35.0-39.9 without [...] the past 12 months, has t he [employer], [employer], oil or water [employer] threatened to shut off services in your [...] PM EST Office Visit [facility] MEDICAL [address] [place] [address] Linda Cunningham MD 73 [place] [address] 06/25/2025 3:00 PM EST Clinical Support [facility] NUTRITION 73 [facility] [place] [address] 73 [place] [address] Health Maintenance Due Date Last Done Comments [...] (Negative) Lay letter mailed to patient WSN: [id number] Ordering Physician: Linda Cunningham Dictated By: Geremias Rivas MD Dictated Date/Time: 11/29/24 2:11 pm Reviewed By: Geremias Rivas MD Signed By: Geremias Rivas MD Signed Date/Time: 11/29/24 2:11 pm Transcribed By: CSB Cook Vacuum Kettle Date/Time: 11/29/24 2:04 pm Birads: Procedure Note [...] (Negative) Lay letter mailed to patient WSN: [id number] Ordering Physician: Linda Cunningham Dictated By: Geremias Rivas MD Dictated Date/Time: 11/29/24 2:11 pm Reviewed By: Geremias Rivas MD Signed By: Geremias Rivas MD Signed Date/Time: 11/29/24 2:11 pm Transcribed By: CSB Cook Vacuum Kettle Date/Time: 11/29/24 2:04 pm Birads: Linda Cunningham [...] - 09/27/2024 6:05 AM EDT Performed at: [facility] [id number] Grain Loader: Kaia Gaston MD, Phone: [phone] Linda Cunningham MD LAB BLOOD ORDERABLES Final Resul t Performing Organization Address City/[facility] de Phone Number [id number] 1 * [...] - 11/17/2023 12:05 AM EDT Performed at: [facility] [id number] Grain Loader: Kaia Gaston MD, Phone: [phone] us Linda Cunningham MD LAB BLOOD ORDERABLES Final Resul t Performing Organization Address City/[facility]/ZIP Co de Phone Number [facility] 1 * Hm Colonoscopy (10/10/2020) Colonoscopy Normal Normal Comment:internal hemorrhoids , polyp, repeat in 5 years us Historical Provider HEALTH MAINTENANCE Final Result * THIN PREP PAP, WITH HPV (03/01/2019 12:00 AM EDT) us Historical Provider LAB CYTOLOGY ORDERABLES F inal Result [facility] [address] [place] [address] from Last 3 Months or Most Recently Relevant to Health Maintenance Insurance , [address] [id number] [place] [phone] Care Teams Agricultural Pilot Relationship Specialty Start Date End Date Linda Cunningham MD [address] [place] [address] PCP - General Internal Medicine 09/10/22
--- OUTSIDE RECORDS SUMMARY | 2025-05-18 13:08 | XMS_ITS | Encounter Summary ---
Author Organization [email or web address] Address 75 [facility] 7t [place] [address] Care Team Providers Care Forensic Pathologist Name Role Phone Linda Cunningham MD Primary Care Provider [phone] Encounter Details Date Type Department Care Team (Late st Contact Info) Description 03/23/2025 Orders Only [facility] [address] [place] [address] Linda Cunningham MD [address] [place] [address] Social History Tobacco Use Types Packs/Day Years [...] the past 12 months, has t he [employer], gas, oil or water company threatened to [...] 06/22/2025 3:30 PM EST Office Visit [facility] MEDICAL [address] [place] [address] Linda Cunningham MD [address] [place] [address] 06/25/2025 3:00 PM EST Clinical Support [facility] NUTRITION [address] [place] [address] Abby Velazquez, GILL [address] [place] [address] documented as of this encounter Procedures Procedure [...] documented as of this encounter Care Teams Forensic Pathologist Relationship Specialty Start Date End Date Linda Cunningham MD [address] [place] [address] PCP - General Internal Medicine 09/10/22 documented as of this encounter
--- OUTSIDE RECORDS SUMMARY | 2025-05-18 13:08 | XMS_ITS | Encounter Summary ---
Author Organization [employer] Address 75 [facility] 7t [place] [address] Care Team Providers Care Ski Topper Name Role Phone Linda Cunningham MD Primary Care Provider [phone] Encounter Details Date Type Department Care Team (Late st Contact Info) Description 05/10/[address] [facility] MEDICAL [address] [place] [address] ProviderTonya MD Social History Tobacco Use Types [...] t he electric, gas, oil or water [employer] threatened to shut off services in your [...] Description 06/22/2025 3:30 PM EST Office Visit [facility] MEDICAL [address] [place] [address] Linda Cunningham MD [address] [place] [address] 06/25/2025 3:00 PM EST Clinical Support [facility] NUTRITION [address] [place] [address] Abby Velazquez, GILL [address] [place] [address] documented as of this encounter Procedures Procedure [...] documented as of this encounter Care Teams Ski Topper Relationship Specialty Start Date End Date Linda Cunningham MD [address] [place] [address] PCP - General Internal Medicine 09/10/22 documented as of this encounter
--- OUTSIDE RECORDS SUMMARY | 2025-05-18 13:08 | XMS_ITS | Encounter Summary ---
Author Organization [employer] Address 75 [facility] 7t [place] [address] Care Team Providers Care Bale Piler Name Role Phone Linda Cunningham MD Primary Care Provider [phone] Encounter Details Date Type Department Care Team (Late st Contact Info) Description 06/11/2024 Orders Only [facility] [address] [place] [address] Linda Cunningham MD [address] [place] [address] Social History Tobacco Use Types Packs/Day Years [...] Description 06/22/2025 3:30 PM EST Office Visit [facility] MEDICAL [address] [place] [address] Linda Cunningham MD [address] [place] [address] 06/25/2025 3:00 PM EST Clinical Support [facility] NUTRITION [address] [place] [address] Abby Velazquez, GILL [address] [place] [address] documented as of this encounter Procedures Procedure [...] documented as of this encounter Care Teams Bale Piler Relationship Specialty Start Date End Date Linda Cunningham MD [address] [place] [address] PCP - General Internal Medicine 2/23/23 documented as of this encounter
--- OUTSIDE RECORDS SUMMARY | 2025-05-18 13:08 | XMS_ITS | Encounter Summary ---
Author Organization [employer] Address 75 [facility] 7t [place] [address] Care Team Providers Care Soil Conservation Technician Name Role Phone Linda Cunningham MD Primary Care Provider [phone] Encounter Details Date Type Department Care Team (Late st Contact Info) Description 03/23/2025 Results Follow-Up [facility] MEDICAL [address] [place] [address] Linda Cunningham MD [address] [place] [address] EGD Social History Tobacco Use Types Packs/Day [...] the past 12 months, has t he [employer], gas, oil or water company threatened to [...] Description 06/22/2025 3:30 PM EST Office Visit [facility] MEDICAL [address] [place] [address] Linda Cunningham MD [address] [place] [address] 06/25/2025 3:00 PM EST Clinical Support [facility] NUTRITION [address] [place] [address] Abby Velazquez, GILL [address] [place] [address] documented as of this encounter Visit Diagnoses Not on filedocumented in this encounter Additional Health Concerns Assessment Noted Time PHQ-9 Depression Total Score: 16 025 3:13 PM EDT documented as of this encounter Care Teams Soil Conservation Technician Relationship Specialty Start Date End Date Linda Cunningham MD 73 [place] [address] PCP - General Internal Medicine 09/10/22 documented as of this encounter
--- OUTSIDE RECORDS SUMMARY | 2025-05-18 13:08 | XMS_ITS | Encounter Summary ---
Author Organization [employer] Address 75 [facility] 7t [place] [address] Care Team Providers Care Mitigation Supervisor Name Role Phone Linda Cunningham MD Primary Care Provider [phone] Encounter Details Date Type Department Care Team (Late st Contact Info) Description 10/30/2024 Orders Only [facility] [address] [place] [address] Linda Cunninghma MD [address] [place] [address] Social History Tobacco Use Types Packs/Day Years [...] Description 06/22/2025 3:30 PM EST Office Visit [facility] MEDICAL [address] [place] [address] Linda Cunningham MD [address] [place] [address] 06/25/2025 3:00 PM EST Clinical Support [facility] NUTRITION [address] [place] [address] [place] [address] documented as of this encounter Procedures Procedure [...] (Negative) Lay letter mailed to patient WSN: [id number] Ordering Physician: Linda Cunningham Dictated By: Geremias Rivas MD Dictated Date/Time: 11/29/24 2:11 pm Reviewed By: Geremias Rivas MD Signed By: Geremias Rivas MD Signed Date/Time: 11/29/24 2:11 pm Transcribed By: CSTyrone Character Artist Date/Time: 11/29/24 2:04 pm Birads: Procedure Note [...] (Negative) Lay letter mailed to patient WSN: [id number] Ordering Physician: Linda Cunningham Dictated By: Geremias Rivas MD Dictated Date/Time: 11/29/24 2:11 pm Reviewed By: Geremias Rivas MD Signed By: Geremias Rivas MD Signed Date/Time: 11/29/24 2:11 pm Transcribed By: CSTyrone Character Artist Date/Time: 11/29/24 2:04 pm Birads: Linda Cunningham [...] documented as of this encounter Care Teams Mitigation Supervisor Relationship Specialty Start Date End Date Linda Cunningham MD [address] [place] [address] PCP - General Internal Medicine 09/10/22 documented as of this encounter
== END 2025-05-18 11:28 | disposition home or self-care (01) ==
LOC: HO.LAB 11:27
PROVIDERS: PCP Internal Medicine; Visit Provider Psychiatry & Neurology Psychiatry
DX: Z79.899 Other long term (current) drug therapy (principal)
CPT/HCPCS: 36415; 85025

== ENCOUNTER 2025-06-26 14:34 | Outpatient (AMB) | payer OTHER, MEDICARE, SELFPAY ==
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
--- NOTE | 2025-06-26 15:16 | A.OFFPSYCH_ITS ---
Intake Intake Visit Reasons: depression Allergies thioridazine (From MELLARIL) Allergy (Unknown, Unverified 04/04/20 16:32) UNKNOWN Medication List - Last Reconciled 06/26/25 by Andre Burk MD aripiprazole 10 mg PO DAILY buspirone 10 mg (2 x 5 mg) PO BID 30 days clozapine orally 1 am 1 aft 1 1/2 bedtime; 30 days glycopyrrolate 2 - 4 mg (1 - 2 x 2 mg) PO BEDTIME levothyroxine 50 mcg PO DAILY lorazepam 2 mg PO DAILY PRN lorazepam 1 mg PO QID metformin ER 500 mg PO QPM minoxidil 2.5 mg PO DAILY omeprazole 20 mg PO DAILY propranolol ER 60 mg PO DAILY sertraline 100 mg PO DAILY topiramate (Topamax) 1 tab 3 pm 1 tab bedtime 30 days HPI- Psychiatric Chief Complaint: depression HPI Narrative: 08/27/24, 2:36 PM (37m) PATIENT SUMMARY The patient presented for a follow-up psychiatric appointment primarily to [place] [facility] [place] concerns regarding anxiety, memory issues, and medication management. HPI The patient reported experiencing full-blown nighttime panic attacks, which have been a regular occurrence. The patient described being anxious in the afternoons, regardless of whether they took their afternoon medications, which included Clozaril, Topamax, and Ativan. The patient expressed significant anxiety related to ongoing home renovations and financial concerns associated with them. The patient reported memory issues, feeling unable to remember recent conversations with family members. The patient mentioned having interior chatter in the past, but currently, it is manageable. The patient acknowledged increased anxiety but did not attribute it to the discontinuation of afternoon medications. The patient denied experiencing dissociation or drinking alcohol regularly, aside from two drinks after a wake. The patient expressed concerns about potentially being manic but stated that they did not feel manic. The patient reported having a history of agoraphobia, contributing to their current stress levels, especially regarding living situations and home renovations. PAIN The patient did not report any pain during this encounter. BACKGROUND The patient has not introduced any new allergies or new medications since the last visit. The patient stopped taking afternoon doses of Clozaril, Topamax, and Ativan due to ongoing anxiety despite medication and memory concerns. The patient expressed difficulty with memory, which they attribute to stress and anxiety. The patient has a history of bipolar disorder and is currently on sertraline for obsessive anxiety. Past Psychiatric History: See past dictations patient has the history of schizoaffective disorder PTSD with dissociation OCD and was markedly unstable with hospitalizations for many years her life. History of alcohol dependence in remission. Use to see Dr. Celaya. No past patient had been on high-dose fluoxetine which helped with patient significant OCD symptoms but had multiple episodes of severe kamala and past self-harming behavior Mental Status Exam Mental Status Exam Narrative: MENTAL STATUS The patient's mood was reported as anxious. The patient appeared articulate during the conversation and was able to discuss their concerns clearly.Reports distractilibilty difficulty with attention st memory . Reports intermittant distortions dissociation denies active si hi OYLI 18 phq9 16 reports severe anxiety rumination worries re house being completed Assessment and Plan Assessment & Plan (1) OCD (obsessive compulsive disorder): Status: Acute Code(s): F42.9 - Obsessive-compulsive disorder, unspecified (2) Complex posttraumatic stress disorder: Status: Acute Code(s): F43.10 - Post-traumatic stress disorder, unspecified (3) Bipolar 1 disorder, depressed: Status: Acute Code(s): F31.9 - Bipolar disorder, unspecified Plan lower topamax secondary to cognitive sx memory attention impairment stop buspar ck labs for attentional problems cognitive issues ck lyme titers ck tsh b12 folate cont clozapine sertraline Medications: Changed From topiramate 1 tab 3 pm 1 tab bedtime 30 days 60 tabs 3RF To topiramate (Topamax) 1 tab bedtime 60 tabs 3RF 30 days Discontinued buspirone Discontinued Reason: Doctor's Order 10 mg (2 x 5 mg) PO BID 30 days 120 tabs 2RF Orders: Orders Vitamin B12 and Folate 06/27/25 F31.77 - Bipolar disorder, in partial remission, most recent episode mixed, F42.9 - Obsessive-compulsive disorder, unspecified, F43.10 - Post-traumatic stress disorder, unspecified, R41.3 - Other amnesia Complete Blood Count Auto Diff 06/27/25 F31.77 - Bipolar disorder, in partial remission, most recent episode mixed, F42.9 - Obsessive-compulsive disorder, unspecified, F43.10 - Post-traumatic stress disorder, unspecified, R41.3 - Other amnesia Ammonia 06/27/25 F31.77 - Bipolar disorder, in partial remission, most recent episode mixed, F42.9 - Obsessive-compulsive disorder, unspecified, F43.10 - Post-traumatic stress disorder, unspecified, R41.3 - Other amnesia TSH reflex Free T4 06/27/25 F31.77 - Bipolar disorder, in partial remission, most recent episode mixed, F42.9 - Obsessive-compulsive disorder, unspecified, F43.10 - Post-traumatic stress disorder, unspecified, R41.3 - Other amnesia Lyme IgG/IgM w/reflex to WB 06/27/25 . - Bipolar disorder, in partial remission, most recent episode mixed, F42.9 - Obsessive-compulsive disorder, unspecified, F43.10 - Post-traumatic stress disorder, unspecified, R41.3 - Other amnesia Comprehensive Met. Panel 06/27/25 . - Bipolar disorder, in partial remission, most recent episode mixed, F42.9 - Obsessive-compulsive disorder, unspecified, F43.10 - Post-traumatic stress disorder, unspecified, R41.3 - Other amnesia Clozapine 06/27/25 . - Bipolar disorder, in partial remission, most recent episode mixed, F42.9 - Obsessive-compulsive disorder, unspecified, F43.10 - Post-traumatic stress disorder, unspecified, R41.3 - Other amnesia Counseling and coordination of Care Details-Self Mgmt counseling: manageing anxiety while waiting Details: I spent [] minutes reviewing the record, seeing the patient and documenting in the medical record. Counseling provided to the patient/caregiver as outlined below. Addressed patient/caregiver concerns regarding current medication regime including effective adherence. Addressed patient/caregiver concerns regarding diagnosis and prognosis including accuracy of diagnosis, prognosis over time, impact of diagnosis. Addressed patient/caregiver concerns regarding impact of recent stressors. [facility] Medical History (Updated 03/23/24 @ 14:25 by Andre Burk MD) skilled nursing current use of clozapine Bipolar 1 disorder, depressed Complex posttraumatic stress disorder OCD (obsessive compulsive disorder) Severe manic bipolar 1 disorder with psychotic behavior ALONZO (obstructive sleep apnea) Social History: Pt is with 3 children on disability used to work as a nurse very judgmental family of origin Substance History: alcohol use dx binging in past Trauma History: unclear adol trauma Coding Level of Care Code Est Pt Level 3 (01176) Therapy 30m w/E&M (98098) Diagnoses OCD (obsessive compulsive disorder) F42.9 Complex posttraumatic stress disorder F43.10 Bipolar 1 disorder, depressed F31.9
--- OUTSIDE RECORDS SUMMARY | 2025-06-26 20:31 | XMS_ITS | Clinical Summary ---
Author Organization [employer] Address [address] [facility] 7[address] [place] [address] Care Team Providers Care Director Enterprise Systems Name Role Phone Linda Cunningham MD Primary Care Provider [phone] Allergies Active Allergy Reactions Criticality Noted Date [...] noon and 1 mg in the evening. 3 Active cloZAPine (Clozaril) 50 MG tablet 50 mg in the morning and 50 mg at noon and 50 mg in the evening. 3 Active LORazepam (Ativan) 2 MG tablet Take 2 mg by mouth if needed each day. 3 Active QUEtiapine (SEROquel) 100 MG tablet Take 100 mg by mouth if needed each day. 2 Active topiramate (Topamax) 100 MG tablet Take 100 mg by mouth in the morning and 100 mg in the evening. 3 Active albuterol (ProAir HFA) 108 (90 Base) MCG/ACT inhaler Inhale 2 puffs every 4 (four) hours if needed for wheezing or shortness of breath. 8.5 g 3 Active glycopyrrolate (Robinul) 2 MG tablet Take 2 mg by mouth at bedtime. 4 Active propranolol LA (Inderal LA) 60 MG 24 hr capsule Take 1 capsule (60 mg) by mouth Once per day. 90 capsule 3 4 Active levothyroxine (Synthroid, Levoxyl) 50 MCG tabletIndications: Acquired hypothyroidism Take 1 tablet (50 mcg) by mouth Once per day. 90 tablet 3 5 09/07/19 26 Active LORazepam (Ativan) 1 MG tablet Take 1 tablet by mouth every 6 (six) hours during the day. 4 Active sertraline (Zoloft) 100 MG tablet 5 Active ARIPiprazole (Abilify) 10 MG tablet Take 10 mg by mouth at bedtime. 5 Active metFORMIN XR (Glucophage-XR) 500 MG 24 hr tabletIndications: Obesity (BMI 35.0-39.9 without comorbidity) TAKE ONE TABLET BY MOUTH EVERY DAY. DO NOT CRUSH, CHEW, OR SPLIT 90 tablet 3 5 Active busPIRone (Buspar) 5 MG tablet Take 1 tablet by mouth 2 times daily. 5 Active minoxidil (Loniten) 2.5 MG tabletIndications: Alopecia Take 1 tablet (2.5 mg) by mouth Once per day. 30 tablet 1 5 Active Active Problems Problem Noted Date Diagnosed [...] organization. Date Type Department Care Team Description 05/22/2025 Arabella Pitts [facility] [address] [place] [id number] Linda Cunningham MD Alopecia (Primary Dx) 05/21/2025 Orders Only [facility] [address] [place] [address] Linda Cunningham MD 04/25/2025 Refill [facility] MED[facility] [address] [place] [address] Linda Cunningham MD 04/02/2025 3:00 PM EDT Clinical Support [facility] NUTRITION [address] [place] [address] Abby Velazquez, GILL Class 2 obesity due to excess calories without serious comorbidity with body mass index (BMI) of 39.0 to 39.9 in adult (Primary Dx); Steatosis of liver from Last 3 Months Immunizations Immunization Administration [...] Care Team (Late st Contact Info) Description 08/03/2025 11:30 AM EST Office Visit [facility] MED[facility] [address] [place] [address] Linda Cunningham MD [address] [place] [address] 10/01/2025 2:15 PM EDT Clinical Support [facility] NUTR[facility] [address] [place] [address] Abby Velazquez, GILL [address] [place] [address] Health Maintenance Due Date Last Done Comments CT Colonography 1966 FIT DNA/Cologuard 1966 FIT 1966 FOBT 1966 HIV Screening 1966 Sigmoidoscopy 1966 Hepatitis C Screening 1984 Hepatitis A Vaccines (1 of 2 - Risk 2-dose series) 1985 Hepatitis B Vaccines (1 of 3 - 19+ 3-dose series) 1985 Pneumococcal Vaccine: 50+ Years (1 of 1 - PCV) 2016 RSV Patients and Patients Aged 60 years or older (1 - Risk 50-74 years 1-dose series) 2016 Zoster Vaccines (1 of 2) 2016 [...] Tobacco Screening 03/22/2026 03/22/2025 Mammogram 11/29/2026 11/29/2024, 09/0 12/2018, 03/24/2019 Lipid Panel 11/15/2028 11/16/2023, 03/0 07/2022, 07/28/2021, Additional history exists Colonoscopy 10/10/2030 10/10/2020, 03/2 11/2020, 01/29/2016 Colorectal Cancer Screening 10/10/2030 DTaP/Tdap/Td Vaccines (3 - Td or Tdap) 05/19/2034 05/19/2024, 07/13/2013, 03/27/2003 HIB Vaccines Aged Out No longer eligi [...] Diagnosis Comments CBC WITH AUTO DIFFERENTIAL Routine 05/18/2025 1:20 PM EDT BI MAMMOGRAM SCREENING TOMOSYNTHESIS BILATERAL Routine 11/29/2024 8:03 AM EDT HEMOGLOBIN A1C Routine 09/26/2024 3:13 PM EDT Hyperglycemia LIPID PANEL, STANDARD Routine 11/16/2023 11:13 AM EDT Elevated triglycerides with high cholesterol HM COLONOSCOPY Routine 10/10/2020 THIN PREP PAP, WITH HPV Routine 03/01/2019 12:00 AM EDT from Last 3 Months or Most Recently Relevant to Health Maintenance Results * CBC auto differential (05/18/2025 1:20 PM EDT) Blood Venous blood specimen / Unknown Linda Cunningham MD LAB BLOOD ORDERABLES Final Resul t * BI Mammogram Screening Tomosynthesis Bilateral (11/29/2024 [...] (Negative) Lay letter mailed to patient WSN: [id number] Ordering Physician: Linda Cunningham Dictated By: Geremias Rivas MD Dictated Date/Time: 11/29/24 2:11 pm Reviewed By: Geremias Rivas MD Signed By: Geremias Rivas MD Signed Date/Time: 11/29/24 2:11 pm Transcribed By: PRAVEEN Repairer Date/Time: 11/29/24 2:04 pm Birads: Procedure Note [...] (Negative) Lay letter mailed to patient WSN: [id number] Ordering Physician: Linda Cunningham Dictated By: Geremias Rivas MD Dictated Date/Time: 11/29/24 2:11 pm Reviewed By: Geremias Rivas MD Signed By: Geremias Rivas MD Signed Date/Time: 11/29/24 2:11 pm Transcribed By: PRAVEEN Repairer Date/Time: 11/29/24 2:04 pm Birads: Linda Cunningham MD [facility] BI PROCEDURES Edited Result - Final * (ABNORMAL) Hemoglobin A1c (09/26/2024 3:13 PM EDT) Hemoglobin A1c 6.1(H) 4.8 - 5.6 % [facility] 1 Comment: Prediabetes: 5.7 - 6.4 Diabetes: >6.4 Glycemic control for adults with diabetes: <7.0 Blood Venous blood specimen / Unknown 09/26/2024 3:13 PM EDT 09/26/2024 Narrative [facility] 1 - 09/27/2024 6:05 AM EDT Performed at: - [facility] [address] [place], [place] [id number] Senior Sales Associate: Kaia Gaston MD, Phone: [phone] Linda Cunningham MD LAB BLOOD ORDERABLES Final [...] - 11/17/2023 12:05 AM EDT Performed at: - [facility] [address] [id number] Senior Sales Associate: Kaia Gaston MD, Phone: [phone] Linda Cunningham MD LAB BLOOD ORDERABLES Final Resul t Performing Organization Address [facility]/ZIP Co de Phone Number [facility] 1 * Hm Colonoscopy (10/10/2020) Pathologist [facility] Colonoscopy Normal Normal Comment:internal hemorrhoids , polyp, repeat in 5 years Historical [facility] Final Result * THIN PREP PAP, WITH HPV (03/01/2019 12:00 AM EDT) Historical [facility] LAB CYTOLOGY ORDERABLES F inal Result [facility] [address] [place] [address] from Last 3 Months or Most Recently Relevant to Health Maintenance Insurance , [address] [place], [place] [id number] MEDICARE Member Subscriber Plan / Payer (Ef fective 2022-Present) Name:Loida Adam Member ID:[id number] Relation to Subscriber:Self Name:Loida Adam Subscriber ID:[id number] Payer ID:STATE Group ID:Not on file Type:Medicare Address: [facility].[address] [address] Care Teams Director [employer] Systems Relationship Specialty Start Date End Date Linda Cunningham MD [address] [place] [address] PCP - General Internal Medicine 09/10/22
--- OUTSIDE RECORDS SUMMARY | 2025-06-26 20:31 | XMS_ITS | Encounter Summary ---
Author Organization [employer] Address [address] [facility] 7t [place] [address] Care Team Providers Care Disease Case Manager Rn Name Role Phone Linda Cunningham MD Primary Care Provider [phone] Encounter Details Date Type Department Care Team (Late st Contact Info) Description 03/23/2025 Orders Only [facility] [address] [place] [address] Linda Cunningham MD [address] [place] [address] Social History Tobacco Use Types Packs/Day Years [...] the past 12 months, has t he [employer], gas, oil or water company threatened to [...] Description 08/03/2025 11:30 AM EST Office Visit [facility] [address] [place] [address] Linda Cunningham MD [address] [place] [address] 10/01/2025 2:15 PM EDT Clinical Support [facility] N[facility] [address] [place] [address] Abby Velazquez, GILL [address] [place] [address] documented as of this encounter Procedures Procedure [...] documented as of this encounter Care Teams Disease Case Manager Rn Relationship Specialty Start Date End Date Linda Cunningham MD [address] [place] [address] PCP - General Internal Medicine 09/10/22 documented as of this encounter
--- OUTSIDE RECORDS SUMMARY | 2025-06-26 20:31 | XMS_ITS | Encounter Summary ---
Author Organization [employer] Address [address] [facility] 7t [place] [address] Care Team Providers Care Starbucks Clerk Name Role Phone Linda Cunningham MD Primary Care Provider [phone] Encounter Details Date Type Department Care Team (Late st Contact Info) Description 05/10/[address] [facility] MEDICAL [address] [place] [address] ProviderTonya MD Social History Tobacco Use Types [...] t he electric, gas, oil or water [employer] threatened to shut off services in your [...] Description 08/03/2025 11:30 AM EST Office Visit [facility] MEDICAL [address] [place] [address] Linda Cunningham MD [address] [place] [address] 10/01/2025 2:15 PM EDT Clinical Support [facility] NUTRITION [address] [place] [address] Abby Velazquez, GILL [address] [place] [address] documented as of this encounter Procedures Procedure [...] documented as of this encounter Care Teams Starbucks Clerk Relationship Specialty Start Date End Date Linda Cunningham MD [address] [place] [address] PCP - General Internal Medicine 09/10/22 documented as of this encounter
--- OUTSIDE RECORDS SUMMARY | 2025-06-26 20:31 | XMS_ITS | Encounter Summary ---
Author Organization [employer] Address [address] [facility] 7t [place] [address] Care Team Providers Care Mogul Operator Name Role Phone Linda Cunningham MD Primary Care Provider [phone] Encounter Details Date Type Department Care Team (Late st Contact Info) Description 09/06/2024 Orders Only [facility] MEDICAL [address] [place] [address] ProviderTonya MD Social History Tobacco Use Types [...] t he electric, gas, oil or water [employer] threatened to shut off services in your [...] Description 08/03/2025 11:30 AM EST Office Visit [facility] MEDICAL [address] [place] [address] Linda Cunningham MD [address] [place] [address] 10/01/2025 2:15 PM EDT Clinical Support [facility] NUTRITION [address] [place] [address] Abby Velazquez, GILL [address] [place] [address] documented as of this encounter Procedures Procedure [...] documented as of this encounter Care Teams Mogul Operator Relationship Specialty Start Date End Date Lnida Cunningham MD [address] [place] [address] PCP - General Internal Medicine 09/10/22 documented as of this encounter
--- OUTSIDE RECORDS SUMMARY | 2025-06-26 20:31 | XMS_ITS | Encounter Summary ---
Author Organization [facility] [facility] [employer] Address [address] [facility] 7t [place] [address] Care Team Providers Care Records Management Engineer Name Role Phone Linda Cunningham MD Primary Care Provider [phone] Encounter Details Date Type Department Care Team (Late st Contact Info) Description 08/04/2024 Orders Only [facility] MEDICAL [address] [place] [address] ProviderTonya MD Social History Tobacco Use Types [...] the past 12 months, has t he [employer], gas, oil or water company threatened to [...] Description 08/03/2025 11:30 AM EST Office Visit [facility] MEDICAL [address] [place] [address] Linda Cunningham MD [address] [place] [address] 10/01/2025 2:15 PM EDT Clinical Support [facility] NUTRITION [address] [place] [address] Abby Velazquez, GILL [address] [place] [address] documented as of this encounter Procedures Procedure [...] documented as of this encounter Care Teams Records Management Engineer Relationship Specialty Start Date End Date Linda Cunningham MD [address] [place] [address] PCP - General Internal Medicine 09/10/22 documented as of this encounter
--- OUTSIDE RECORDS SUMMARY | 2025-06-26 20:31 | XMS_ITS | Encounter Summary ---
Author Organization [employer] Address [address] [facility] [address]t [place] [address] Care Team Providers Care Wood Scaler Name Role Phone Linda Cunningham MD Primary Care Provider [phone] Encounter Details Date Type Department Care Team (Late st Contact Info) Description 06/11/2024 Orders Only [facility] [address] [place] [address] Linda Cunningham MD [address] [place] [address] Social History Tobacco Use Types Packs/Day Years [...] your housing situation today? I have sharron kmep 05/07/[address] you li [...] Description 08/03/2025 11:30 AM EST Office Visit [facility] MEDICAL [address] [place] [address] Linda Cunningham MD [address] [place] [address] 10/01/2025 2:15 PM EDT Clinical Support [facility] NUTRITION [address] [place] [address] Abby Velazquez, GILL [address] [place] [address] documented as of this encounter Procedures Procedure [...] documented as of this encounter Care Teams Wood Scaler Relationship Specialty Start Date End Date Linda Cunningham MD [address] [place] [address] PCP - General Internal Medicine 09/10/22 documented as of this encounter
--- OUTSIDE RECORDS SUMMARY | 2025-06-26 20:31 | XMS_ITS | Encounter Summary ---
Author Organization [employer] Address [address] [facility] 7t [place] [address] Care Team Providers Care Hat Braider Name Role Phone Linda Cunningham MD Primary Care Provider [phone] Encounter Details Date Type Department Care Team (Late st Contact Info) Description 10/30/2024 Orders Only [facility] [address] [place] [address] Linda Cunningham MD [address] [place] [address] Social History Tobacco Use Types Packs/Day Years [...] Description 08/03/2025 11:30 AM EST Office Visit [facility] MEDICAL [address] [place] [address] Linda Cunningham MD [address] [place] [address] 10/01/2025 2:15 PM EDT Clinical Support [facility] NUTRITION [address] [place] [address] [place] [address] documented as of this encounter Procedures Procedure [...] (Negative) Lay letter mailed to patient WSN: [id number] Ordering Physician: Linda Cunningham Dictated By: Geremias Rivas MD Dictated Date/Time: 11/29/24 2:11 pm Reviewed By: Geremias Rivas MD Signed By: Geremias Rivas MD Signed Date/Time: 11/29/24 2:11 pm Transcribed By: CSTyrone [employer] Fabrication Supervisor Date/Time: 11/29/24 2:04 pm Birads: Procedure Note [...] (Negative) Lay letter mailed to patient WSN: [id number] Ordering Physician: Linda Cunningham Dictated By: Geremias Rivas MD Dictated Date/Time: 11/29/24 2:11 pm Reviewed By: Geremias Rivas MD Signed By: Geremias Rivas MD Signed Date/Time: 11/29/24 2:11 pm Transcribed By: CSTyrone [employer] Fabrication Supervisor Date/Time: 11/29/24 2:04 pm Birads: Linda Cunningham [...] documented as of this encounter Care Teams Hat Braider Relationship Specialty Start Date End Date Linda Cunningham MD [address] [place] [address] PCP - General Internal Medicine 09/10/22 documented as of this encounter
--- OUTSIDE RECORDS SUMMARY | 2025-06-26 20:31 | XMS_ITS | Encounter Summary ---
Author Organization [employer] Address 75 [facility] 7t [place] [address] Care Team Providers Care Accounting Office Manager Name Role Phone Linda Cunningham MD Primary Care Provider [phone] Encounter Details Date Type Department Care Team (Late st Contact Info) Description 05/21/2025 Orders Only [facility] [address] [place] [address] Linda Cunningham MD [address] [place] [address] Social History Tobacco Use Types Packs/Day Years [...] the past 12 months, has t he [employer], gas, oil or water company threatened to [...] 08/03/2025 11:30 AM EST Office Visit [facility] [address] [place] [address] Linda Cunningham MD [address] [place] [address] 10/01/2025 2:15 PM EDT Clinical Support [facility] [address] [place] [address] Abby Velazquez, GILL [address] [place] [address] documented as of this encounter Procedures Procedure Name Priority Date/Time Associated Diagnosis Comments CBC WITH AUTO DIFFERENTIAL Routine 05/18/2025 1:20 PM EDT documented in this encounter Results * CBC auto differential (05/18/2025 1:20 PM EDT) Blood Venous blood specimen / Unknown us Linda Cunningham MD LAB BLOOD ORDERABLES Final Resul t documented in this encounter Visit Diagnoses Not on filedocumented in this encounter Additional Health Concerns Assessment Noted Time PHQ-9 Depression Total Score: 16 03/22/2 025 3:13 PM EDT documented as of this encounter Care Teams Accounting Office Manager Relationship Specialty Start Date End Date Linda Cunningham MD [address] [place] [address] PCP - General Internal Medicine 09/10/22 documented as of this encounter
--- OUTSIDE RECORDS SUMMARY | 2025-06-26 20:31 | XMS_ITS | Encounter Summary ---
Author Organization [employer] Address [address] [facility] 7t [place] [address] Care Team Providers Care Electronics Technician Apprentice Name Role Phone Linda Cunningham MD Primary Care Provider [phone] Encounter Details Date Type Department Care Team (Late st Contact Info) Description 07/07/2024 Orders Only [facility] MEDICAL [address] [place] [address] ProviderTonya MD Social History Tobacco Use Types [...] the past 12 months, has t he [employer], gas, oil or water company threatened to [...] [facility] [address] [place] [address] Linda Cunningham MD [address] [place] [address] 10/01/2025 2:15 PM EDT Clinical Support [facility] NUTRITION [address] [place] [address] Abby Velazquez, GILL [address] [place] [address] documented as of this encounter Procedures Procedure [...] documented as of this encounter Care Teams Electronics Technician Apprentice Relationship Specialty Start Date End Date Linda Cunningham MD [address] [place] [address] PCP - General Internal Medicine 09/10/22 documented as of this encounter
--- OUTSIDE RECORDS SUMMARY | 2025-06-26 20:31 | XMS_ITS | Clinical Summary ---
Author Organization [facility] Address [address] [address] Phone Care Team Providers Care Departmental Buyer Name Role Phone Linda Cunningham MD Primary Care Provider [phone] Allergies Active Allergy Reactions Criticality Noted Date [...] Active Problems Problem Noted Date Diagnosed Date [place] adverse reaction 11/08/2020 Acute nontraumatic kidney injury [...] Care Team (Late st Contact Info) Description 07/20/2025 Orders Only [facility] [address] [phone] Lino Griffith MD [address] [phone] Stage 3 chronic kidney disease, not otherwise specified (HCC) 07/23/2025 4:00 PM EST Office Visit [facility] P. [address] [phone] Lino Griffith MD [address] [address] Health Maintenance Due Date Last Done Comments Breast Cancer Screening 1966 Hepatitis B Vaccine (1 of 3 - 19+ 3-dose series) 1985 Pneumococcal Vaccine: 50+ Ye ars (1 of 2 - PCV) 1985 Colorectal Cancer Screening: Annual FOBT 2015 Colorectal Cancer Screening: Colonoscopy 2015 Colorectal Cancer Screening: Sigmoidoscopy 2015 Influenza Vaccine (#1) 2025 , 05/22/2019, 08/05/2012, Additional history exists Insurance [facility] Medicare Medicare [facility] Care Teams Departmental Buyer Relationship Specialty Start Date End Date Linda Cunningham MD [address] [place] [address] [phone] PCP - General 07/29/20
== END 2025-06-26 15:42 | disposition home or self-care (01) ==
LOC: HO.HOP 14:34
PROVIDERS: PCP Internal Medicine; Visit Provider Psychiatry & Neurology Psychiatry
DX: F42.9 Obsessive-compulsive disorder, unspecified (principal); F43.10 Post-traumatic stress disorder, unspecified; F31.9 Bipolar disorder, unspecified
CPT/HCPCS: 90833; 99213

== ENCOUNTER 2025-06-27 12:44 | Outpatient (REF) | payer OTHER, MEDICARE, SELFPAY ==
[2025-06-27 13:05] LABS: MANUAL DIFF FLAG NO
[2025-06-27 13:26] LABS: Ammonia 35 umol/L (13-55)
[2025-06-27 13:35] LABS: Hematocrit 43.0 % (37.0-47.0); Hemoglobin 14.3 g/dl (12.0-16.0); Imm Gran Abs Auto 0.03 X10*3/uL (0.00-0.03); Imm Gran Pct Auto 0.3 % (0.0-0.4); Lymphocytes Absolute Auto 3.4 X10*3/uL (1.2-4.9); Mean Corpuscular HGB Conc 33.3 g/dl (31.0-35.0); Mean Corpuscular Hemoglobin 30.0 pg (27.0-33.0); Mean Corpuscular Volume 90.3 fL (80.0-98.0); NRBC Abs Auto 0.000 X10*3/uL (0.0-0.012); NRBC Pct Auto 0.0 /100WBC (0.0-0.2); Platelet Count 310 X10*3/uL (160-400); Red Blood Count 4.76 X10*6/uL (4.20-5.50); White Blood Count 9.8 X10*3/uL (4.8-10.8)
[2025-06-27 15:08] LABS: Alanine Aminotransferase 59 U/L (0-31); Albumin Level 4.4 g/dL (3.5-5.0); Alkaline Phosphatase 83 U/L (39-117); Anion Gap 11 (12-20); Aspartate Amino Transferase 43 U/L (5-31); Blood Urea Nitrogen 15 mg/dL (9-16); Calcium 9.7 mg/dL (8.4-10.2); Carbon Dioxide 26 mmol/L (22-29); Chloride 108 mmol/L (96-108); Estimated Glomerular Filt Rate 45; Potassium 3.7 mmol/L (3.3-5.1); Sodium 141 mmol/L (135-145); Total Protein 7.9 g/dL (6.5-8.0)
[2025-06-27 15:38] LABS: Folate 5.3 ng/mL (> or = 4.0); Vitamin B12 405 pg/mL (200-900)
--- OUTSIDE RECORDS SUMMARY | 2025-06-27 19:33 | XMS_ITS | Clinical Summary ---
Author Organization [employer] Address 75 [facility] 7t [place] [address] Care Team Providers Care Dynamics Ax Solution Architect Name Role Phone Linda Cunningham MD Primary Care Provider [phone] Allergies Active Allergy Reactions Criticality Noted Date [...] Department Care Team Description 05/22/2025 Arabella Pitts [facility] MEDICAL [address] [place] [address] Linda Cunningham MD Alopecia (Primary Dx) 05/21/20[address] [facility] [address] [place] [address] Linda Cunningham MD 04/25/2025 Refill [facility] MEDICAL [address] [place] [address] Linda Cunningham MD 04/02/2025 3:00 PM EDT Clinical Support [facility] NUTRITION [address] [place] [address] Abby Velazquez, GILL Class 2 obesity due [...] Description 08/03/2025 11:30 AM EST Office Visit [facility] MED[facility] [address] [place] [address] Linda Cunningham MD [address] [place] [address] 10/01/2025 2:15 PM EDT Clinical Support [facility] NUTRITION [address] [place] [address] Abby Velazquez, GILL [address] [place] [address] Health Maintenance Due Date Last Done Comments [...] (Negative) Lay letter mailed to patient WSN: [id number] Ordering Physician: Linda Cunningham Dictated By: Geremias Rivas MD Dictated Date/Time: 11/29/24 2:11 pm Reviewed By: Geremias Rivas MD Signed By: Geremias Rivas MD Signed Date/Time: 11/29/24 2:11 pm Transcribed By: PRAVEEN Physical Therapist Assistant Date/Time: 11/29/24 2:04 pm Birads: Procedure Note [...] (Negative) Lay letter mailed to patient WSN: [id number] Ordering Physician: Linda Cunningham Dictated By: Geremias Rivas MD Dictated Date/Time: 11/29/24 2:11 pm Reviewed By: Geremias Rivas MD Signed By: Geremias Rivas MD Signed Date/Time: 11/29/24 2:11 pm Transcribed By: PRAVEEN Physical Therapist Assistant Date/Time: 11/29/24 2:04 pm Birads: Linda Cunningham MD [facility] BI PROCEDURES Edited Result - Final * (ABNORMAL) Hemoglobin A1c (09/26/2024 3:13 PM EDT) Hemoglobin A1c 6.1(H) 4.8 - 5.6 % [facility] 1 Comment: Prediabetes: 5.7 - 6.4 Diabetes: >6.4 Glycemic control for adults with diabetes: <7.0 Blood Venous blood specimen / Unknown 09/26/2024 3:13 PM EDT 09/26/2024 Narrative [facility] 1 - 09/27/2024 6:05 AM EDT Performed at: - [facility] [address] [place], [place] [id number] Assembly Inspector Helper: Kaia Gaston MD, Phone: [phone] Linda Cunningham MD LAB BLOOD ORDERABLES Final [...] 12:05 AM EDT Performed at: - [facility] [address] [id number] Assembly Inspector Helper: Kaia Gaston MD, Phone: [phone] Linda Cunningham MD LAB BLOOD ORDERABLES Final Resul t Performing Organization Address [facility]/ZIP Co de Phone Number [facility] 1 * Hm Colonoscopy (10/10/2020) Pathologist [facility] Colonoscopy Normal Normal Comment:internal hemorrhoids , polyp, repeat in 5 years Historical [facility] Final Result * THIN PREP PAP, WITH HPV (03/01/2019 12:00 AM EDT) Historical [facility] LAB CYTOLOGY ORDERABLES F inal Result [facility] [address] [place] [address] from Last 3 Months or Most Recently Relevant to Health Maintenance Insurance , [address] [place], [place] [id number] MEDICARE Member Subscriber Plan / Payer (Ef fective 2022-Present) Name:Loida Adam Member ID:[id number] Relation to Subscriber:Self Name:Loida Adam Subscriber ID:[id number] Payer ID:STATE Group ID:Not on file Type:Medicare Address: [facility].[address] [address] Care Teams Dynamics Ax Solution Architect Relationship Specialty Start Date End Date Linda Cunningham MD [address] [place] [id number] PCP - General Internal Medicine 09/10/22
--- OUTSIDE RECORDS SUMMARY | 2025-06-27 19:33 | XMS_ITS | Encounter Summary ---
Author Organization [employer] Address 75 [facility] 7t [place] [address] Care Team Providers Care Skidder Driver Name Role Phone Linda Cunningham MD Primary Care Provider [phone] Encounter Details Date Type Department Care Team (Late st Contact Info) Description 10/30/2024 Orders Only [facility] [address] [place] [address] Linda Cunningham MD [address] [place] [address] Social History Tobacco Use Types Packs/Day Years [...] Description 08/03/2025 11:30 AM EST [facility] [address] [place] [address] Linda Cunningham MD [address] [place] [address] 10/01/2025 2:15 PM EDT [facility] [address] [place] [address] [place] [address] documented as of this encounter Procedures Procedure [...] (Negative) Lay letter mailed to patient WSN: [id number] Ordering Physician: Linda Cunningham Dictated By: Geremias Rivas MD Dictated Date/Time: 11/29/24 2:11 pm Reviewed By: Geremias Rivas MD Signed By: Geremias Rivas MD Signed Date/Time: 11/29/24 2:11 pm Transcribed By: CSTyrone Patient Resource Specialist Date/Time: 11/29/24 2:04 pm Birads: Procedure [...] (Negative) Lay letter mailed to patient WSN: [id number] Ordering Physician: Linda Cunningham Dictated By: Geremias Rivas MD Dictated Date/Time: 11/29/24 2:11 pm Reviewed By: Geremias Rivas MD Signed By: Geremias Rivas MD Signed Date/Time: 11/29/24 2:11 pm Transcribed By: CSTyrone Patient Resource Specialist Date/Time: 11/29/24 2:04 pm Birads: Linda [...] documented as of this encounter Care Teams Skidder Driver Relationship Specialty Start Date End Date Linda Cunningham MD [address] [place] [address] PCP - General Internal Medicine 09/10/22 documented as of this encounter
--- OUTSIDE RECORDS SUMMARY | 2025-06-27 19:33 | XMS_ITS | Encounter Summary ---
Author Organization [employer] Address 75 [facility] 7t [place] [address] Care Team Providers Care Stopper Maker Name Role Phone Linda Cunningham MD Primary Care Provider [phone] Encounter Details Date Type Department Care Team (Late st Contact Info) Description 05/10/2024 Orders Only [facility] MEDICAL [address] [place] [address] ProviderTonya MD Social History Tobacco Use Types [...] t he electric, gas, oil or water [employer] threatened to shut off services in your [...] Description 08/03/2025 11:30 AM EST Office Visit [facility] MEDICAL [address] [place] [address] Linda Cunningham MD 73 [place] [address] 10/01/2025 2:15 PM EDT Clinical Support [facility] NUTRITION [address] [place] [address] Abby Velazquez, GILL [address] [place] [address] documented as of this encounter Procedures Procedure [...] documented as of this encounter Care Teams Stopper Maker Relationship Specialty Start Date End Date Linda Cunningham MD [address] [place] [address] PCP - General Internal Medicine 09/10/22 documented as of this encounter
--- OUTSIDE RECORDS SUMMARY | 2025-06-27 19:34 | XMS_ITS | Encounter Summary ---
Author Organization [employer] Address 75 [facility] 7t [place] [address] Care Team Providers Care Casting Chipper Name Role Phone Linda Cunningham MD Primary Care Provider [phone] Encounter Details Date Type Department Care Team (Late st Contact Info) Description 06/11/2024 Orders Only [facility] [address] [place] [address] Linda Cunningham MD [address] [place] [address] Social History Tobacco Use Types Packs/Day Years [...] Description 08/03/2025 11:30 AM EST Office Visit [facility] MEDICAL [address] [place] [address] Linda Cunningham MD [address] [place] [address] 10/01/2025 2:15 PM EDT Clinical Support [facility] NUTRITION [address] [place] [address] Abby Velazquez, GILL [address] [place] [address] documented as of this encounter Procedures Procedure [...] documented as of this encounter Care Teams Casting Chipper Relationship Specialty Start Date End Date Linda Cunningham MD [address] [place] [address] PCP - General Internal Medicine 09/10/22 documented as of this encounter
--- OUTSIDE RECORDS SUMMARY | 2025-06-27 19:34 | XMS_ITS | Encounter Summary ---
Author Organization [employer] Address 75 [facility] 7t [place] [address] Care Team Providers Care Field Ironworker Name Role Phone Linda Cunningham MD Primary Care Provider [phone] Encounter Details Date Type Department Care Team (Late st Contact Info) Description 08/04/2024 Orders Only [facility] MEDICAL [address] [place] [address] ProviderTonya MD Social History Tobacco Use Types [...] t he electric, gas, oil or water [employer] threatened to shut off services in your [...] 08/03/2025 11:30 AM EST Office Visit [facility] MED[facility] [address] [place] [address] Linda Cunningham MD [address] [place] [address] 10/01/2025 2:15 PM EDT Clinical Support [facility] NUTRITION [address] [place] [address] Abby Velazquez, GILL [address] [place] [address] documented as of this encounter Procedures Procedure [...] documented as of this encounter Care Teams Field Ironworker Relationship Specialty Start Date End Date Linda Cunningham MD [address] [place] [address] PCP - General Internal Medicine 09/10/22 documented as of this encounter
--- OUTSIDE RECORDS SUMMARY | 2025-06-27 19:35 | XMS_ITS | Encounter Summary ---
Author Organization [employer] Address 75 [facility] 7t [place] [address] Care Team Providers Care Translator And Interpreter Name Role Phone Linda Cunningham MD Primary Care Provider [phone] Encounter Details Date Type Department Care Team (Late st Contact Info) Description 03/23/2025 Orders Only [facility] [address] [place] [address] Linda Cunningham MD [address] [place] [address] Social History Tobacco Use Types Packs/Day Years [...] the past 12 months, has t he [employer], gas, oil or water company threatened to [...] 08/03/2025 11:30 AM EST Office Visit [facility] MED[facility] [address] [place] [address] Linda Cunningham MD [address] [place] [address] 10/01/2025 2:15 PM EDT Clinical Support [facility] NUTRITION [address] [place] [address] Abby Velazquez, GILL [address] [place] [address] documented as of this encounter Procedures Procedure [...] documented as of this encounter Care Teams Translator And Interpreter Relationship Specialty Start Date End Date Linda Cunningham MD [address] [place] [address] PCP - General Internal Medicine 09/10/22 documented as of this encounter
--- OUTSIDE RECORDS SUMMARY | 2025-06-27 19:35 | XMS_ITS | Encounter Summary ---
Author Organization [employer] Address 75 [facility] 7t [place] [address] Care Team Providers Care Instructor Business Education Name Role Phone Linda Cunningham MD Primary Care Provider [phone] Encounter Details Date Type Department Care Team (Late st Contact Info) Description 09/06/2024 Orders Only [facility] MEDICAL [address] [place] [address] ProviderTonya MD Social History Tobacco Use Types [...] t he electric, gas, oil or water [employer] threatened to shut off services in your [...] Description 08/03/2025 11:30 AM EST Office Visit [facility] MEDICAL [address] [place] [address] Linda Cunningham MD [address] [place] [address] 10/01/2025 2:15 PM EDT Clinical Support [facility] NUTRITION [address] [place] [address] Abby Velazquez, GILL [address] [place] [address] documented as of this encounter Procedures Procedure [...] documented as of this encounter Care Teams Instructor Business Education Relationship Specialty Start Date End Date Linda Cunningham MD [address] [place] [address] PCP - General Internal Medicine 09/10/22 documented as of this encounter
--- OUTSIDE RECORDS SUMMARY | 2025-06-27 19:35 | XMS_ITS | Encounter Summary ---
Author Organization [employer] Address 75 [facility] 7t [place] [address] Care Team Providers Care Family Manager Name Role Phone Linda Cunningham MD Primary Care Provider [phone] Encounter Details Date Type Department Care Team (Late st Contact Info) Description 05/21/2025 Orders Only [facility] [address] [place] [address] Linda Cunningham MD [address] [place] [address] Social History Tobacco Use Types Packs/Day Years [...] the past 12 months, has t he [employer], gas, oil or water company threatened to [...] 08/03/2025 11:30 AM EST Office Visit [facility] MEDICAL [address] [place] [address] Linda Cunningham MD [address] [place] [address] 10/01/2025 2:15 PM EDT Clinical Support [facility] NUTRITION [address] [place] [address] Abby Velazquez, GILL [address] [place] [address] documented as of this encounter Procedures Procedure [...] documented as of this encounter Care Teams Family Manager Relationship Specialty Start Date End Date Linda Cunningham MD [address] [place] [address] PCP - General Internal Medicine 09/10/22 documented as of this encounter
--- OUTSIDE RECORDS SUMMARY | 2025-06-27 19:35 | XMS_ITS | Clinical Summary ---
Author Organization [facility] Address [address] [address] Phone Care Team Providers Care Trade Show Specialist Name Role Phone Linda Cunningham MD Primary Care Provider [phone] Allergies Active Allergy Reactions Criticality Noted Date [...] Active Problems Problem Noted Date Diagnosed Date [place] adverse reaction 11/08/2020 Acute nontraumatic kidney injury [...] Orders Only [facility] [address] [phone] Lino Griffith MD [address] [phone] Stage 3 chronic kidney disease, not otherwise specified (HCC) 07/23/2025 4:00 PM EST Office Visit [facility] P. [address] [phone] Lino Griffith MD [address] [address] Health Maintenance Due Date Last Done Comments Breast Cancer Screening 1966 Hepatitis B Vaccine (1 of 3 - 19+ 3-dose series) 1985 Pneumococcal Vaccine: 50+ Ye ars (1 of 2 - PCV) 1985 Colorectal Cancer Screening: Annual FOBT 2015 Colorectal Cancer Screening: Colonoscopy 2015 Colorectal Cancer Screening: Sigmoidoscopy 2015 Influenza Vaccine (#1) 2025 , 05/22/2019, 08/05/2012, Additional history exists Insurance [facility] Medicare Medicare [facility] Care Teams Trade Show Specialist Relationship Specialty Start Date End Date Linda Cunningham MD [address] [place] [phone] PCP - General 07/29/20
--- OUTSIDE RECORDS SUMMARY | 2025-06-27 19:35 | XMS_ITS | Encounter Summary ---
Author Organization [employer] Address 75 [facility] 7t [place] [address] Care Team Providers Care Journeyman Tool And Die Maker Name Role Phone Linda Cunningham MD Primary Care Provider [phone] Encounter Details Date Type Department Care Team (Late st Contact Info) Description 07/07/2024 Orders Only [facility] MEDICAL [address] [place] [address] ProviderTonya MD Social History Tobacco Use Types [...] the past 12 months, has t he [employer], gas, oil or water company threatened to [...] Description 08/03/2025 11:30 AM EST Office Visit [facility] MEDICAL [address] [place] [address] Linda Cunningham MD [address] [place] [address] 10/01/2025 2:15 PM EDT Clinical Support [facility] NUTRITION [address] [place] [address] Abby Velazquez, GILL [address] [place] [address] documented as of this encounter Procedures Procedure [...] documented as of this encounter Care Teams Journeyman Tool And Die Maker Relationship Specialty Start Date End Date Linda Cunningham MD [address] [place] [address] PCP - General Internal Medicine 09/10/22 documented as of this encounter
[2025-06-28 19:29] LABS: Lyme Blot 2.54 index
== END 2025-06-27 12:45 | disposition home or self-care (01) ==
LOC: HO.LAB 12:44
PROVIDERS: PCP Internal Medicine; Visit Provider Psychiatry & Neurology Psychiatry
DX: Z01.84 Encounter for antibody response examination (principal); F31.77 Bipolar disorder, in partial remission, most recent episode mixed; F42.9 Obsessive-compulsive disorder, unspecified; F43.10 Post-traumatic stress disorder, unspecified; R41.3 Other amnesia; Z79.899 Other long term (current) drug therapy
CPT/HCPCS: 36415; 80053; 80159; 82140; 82607; 82746; 84443; 85025; 86617; 86618